=== PATIENT | male | born 1955 | race Caucasian/White ===

== ENCOUNTER 2020-06-15 08:09 | Outpatient (REF) | payer BC, MEDICARE, SELFPAY ==
[2020-06-15 09:28] LABS: Alanine Aminotransferase 41 U/L (0-40); Albumin Level 4.2 g/dL (3.5-5.0); Alkaline Phosphatase 45 U/L (39-117); Anion Gap 12 (12-20); Aspartate Amino Transferase 25 U/L (5-37); Bilirubin Total 0.6 mg/dL (0.0-1.0); Blood Urea Nitrogen 15 mg/dL (9-16); Calcium 8.8 mg/dL (8.4-10.2); Carbon Dioxide 29 mmol/L (22-29); Chloride 102 mmol/L (96-108); Estimated Glomerular Filt Rate > 60; Glucose Fasting 144 mg/dL (60-99); Potassium 3.9 mmol/l (3.3-5.1); Sodium 139 mmol/L (135-145); Total Protein 6.7 g/dL (6.5-8.0)
== END 2020-06-15 08:10 | disposition home or self-care (01) ==
LOC: HO.LAB 08:09
PROVIDERS: PCP Internal Medicine; Visit Provider Internal Medicine
DX: R73.02 Impaired glucose tolerance (oral) (principal)
CPT/HCPCS: 36415; 80053

== ENCOUNTER 2020-06-17 08:05 | Outpatient (REF) | payer BC, MEDICARE, SELFPAY ==
--- NOTE | 2020-06-17 14:49 | MHC.AU.AEV ---
Adult Audiological Evaluation AUD- Audiology Adult New Evaluation Start: 06/17/20 14:34 Freq: Status: Active Protocol: Activity Type Activity Date Activity User E-Sign Co-Sign Detail Recorded Client Recorded Date Recorded By Document 06/17/20 14:35 MAXX [id number] 06/17/20 14:48 MAXX 06/17/20 14:35 Adult Audiological Evaluation [Date of Visit] -Date of Visit 06/17/20 [Reason For Appointment] -Reason for Appointment Audiologic re- evaluation due to question of change in hearing ability . Peter reports he is experiencing increased difficulty understanding his 's speech. -Does patient feel they have a hearing Yes loss? -If Yes, Which Ear? Both Ears [Previous Testing] -Has hearing been tested previously? Yes -Previous Hearing Test Results 04/05/2019 Normal hearing thresholds at 250 Hz dropping to a bilateral severe for profound high frequency sensorineural hearing loss with the right ear being poorer at 8000 Hz. Speech understanding was 88% for the right ear and 92% for the left ear at a level of 75 dB HL. [Reported History] -Bothersome Tinnitus/Ringing/Noises in Both Ears Ears -History of occupational noise Yes exposure? 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 Technician- Left Ear Oticon -Model- Left OPN 3 mini RITE -Serial Number- Left [id number] -Battery Size- Left 312 -Warranty- Left Repair and L&D 05/02/2020 -Dispensed By [facility] -Date of Fittin04/21/2018 [Otoscopy] -Otoscopy- Right Ear Unremarkable -Otoscopy- Left Ear Unremarkable [Tympanometry] -Tympanometry- Right Ear Normal Middle Ear System ( Type A) -Tympanometry- Left Ear Normal Middle Ear System ( Type A) [Hearing Test Methods] -Transducer(s) Used Insert Earphones,Bone Conduction -Method Conventional Audiometry -Stimuli Used Pure Tones [Hearing- Right Ear] -Description of Hearing- Right Ear Normal hearing threshold at 250 Hz dropping to a severe sensorineural hearing loss at 4000 Hz, rising to a moderate loss at 8000 Hz. [Hearing- Left Ear] -Description of Hearing- Left Ear Normal hearing at 250 Hz dropping to a profound sensorineural hearing loss at 3000 Hz rising to a severe loss at 8000 Hz . [Speech Recognition Threshold (SRT)] -Method Used Monitored Live Voice -Stimuli Used Spondee Words -Speech Recognition Threshold (SRT)- 30 dB HL Right Ear -Speech Recognition Threshold (SRT)- 30 dB HL Left Ear [Word Discrimination] -Method: Recorded Lists -Word Lists Used: NU-6 -Word Discrimination- Right Ear 96% at 70 dB HL -Word Discrimination- Left Ear 96% at 70 dB HL [Compared to Most Recent Evaluation:] -Compared to the most recent Hearing is evaluation: stable. [Recommendations] -Recommendations Audiological re -evaluation in one year. -Recommendations (Other) Re-programmed the hearing aids to try to improve discrimination ability. If further adjustments are needed Peter is advised to schedule another appointment. [Diagnosis] -Primary Diagnosis: H90.3 Bilateral Sensorineural Hearing Loss -Secondary Diagnosis: N/A [Services Performed] -Services Performed Comprehensive Audiological Evaluation (CPT 10839), Tympanometry ( CPT 78263) Signature [Signature] -Provider Pat Major, [facility]
== END 2020-06-17 08:06 | disposition home or self-care (01) ==
LOC: HO.SH 08:05
PROVIDERS: PCP Internal Medicine; Visit Provider Internal Medicine
DX: H90.3 Sensorineural hearing loss, bilateral (principal)
CPT/HCPCS: 92557; 92567

== ENCOUNTER 2020-08-02 07:49 | Outpatient (REF) | payer BC, MEDICARE, SELFPAY ==
[2020-08-02 12:06] LABS: Alanine Aminotransferase 33 U/L (0-40); Albumin Level 4.1 g/dL (3.5-5.0); Alkaline Phosphatase 45 U/L (39-117); Anion Gap 16 (12-20); Aspartate Amino Transferase 23 U/L (5-37); Bilirubin Total 0.7 mg/dL (0.0-1.0); Blood Urea Nitrogen 13 mg/dL (9-16); Calcium 8.5 mg/dL (8.4-10.2); Carbon Dioxide 27 mmol/L (22-29); Chloride 102 mmol/L (96-108); Cholesterol 156 mg/dL; Estimated Glomerular Filt Rate > 60; Glucose Fasting 149 mg/dL (60-99); HDL Cholesterol 33 mg/dL; LDL Cholesterol Calculated 88 mg/dl; Potassium 3.8 mmol/l (3.3-5.1); Sodium 141 mmol/L (135-145); Total Protein 6.5 g/dL (6.5-8.0); Triglycerides 176 mg/dL
== END 2020-08-02 07:50 | disposition home or self-care (01) ==
LOC: HO.HMGCLDS 07:49
PROVIDERS: Internal Medicine; Visit Provider Internal Medicine
DX: R73.9 Hyperglycemia, unspecified (principal); E78.2 Mixed hyperlipidemia; Z20.828 Contact with and (suspected) exposure to other viral communicable diseases
CPT/HCPCS: 80053; 80061; C9803; U0003

== ENCOUNTER 2020-10-11 09:11 | Outpatient (REF) | payer SELFPAY | END 2020-10-11 09:12 | disposition home or self-care (01) | LOC: HO.HAP 09:11 | PROVIDERS: Visit Provider Internal Medicine | DX: Z46.1 Encounter for fitting and adjustment of hearing aid (principal) | CPT/HCPCS: V5267 ==

== ENCOUNTER 2021-10-28 09:10 | Outpatient (REF) | payer MEDICARE, SELFPAY ==
--- NOTE | ~2021-10-28 | US_ITS ---
EXAMINATION: US RETROPERITONEAL LIMITED (AORTA) CLINICAL INFORMATION: Personal history of nicotine dependence. COMPARISON: None TECHNIQUE: Kumar-scale, color Doppler and spectral Doppler evaluation of the abdominal aorta. FINDINGS: There is evidence of atherosclerotic disease with vessel wall calcification. The aorta is otherwise normal. The measurements of the aorta in maximum AP and transverse dimensions respectively are as follows: Proximal: 2.3 x 2.3 cm. Mid: 2.7 x 2.2 cm. Distal: 2.1 x 2.0 cm. PSV: 97.8 cm/s. The measurements of the common iliac arteries in maximum AP and TRV dimensions are as follows: Right Common Iliac Artery: 1.3 x 1.6 cm. Left Common Iliac Artery: 1.5 x 1.5 cm. US/US abdominal aortic aneurysm IMPRESSION: Normal caliber abdominal aorta. No aneurysm seen..
== END 2021-10-28 09:11 | disposition home or self-care (01) ==
LOC: HO.US 09:10
PROVIDERS: PCP Internal Medicine; Visit Provider Internal Medicine
DX: Z13.6 Encounter for screening for cardiovascular disorders (principal); Z87.891 Personal history of nicotine dependence
CPT/HCPCS: 76706

== ENCOUNTER 2022-01-12 07:40 | Outpatient (REF) | payer MEDICARE, SELFPAY ==
[2022-01-12 11:53] LABS: Alanine Aminotransferase 16 U/L (0-40); Albumin Level 4.1 g/dL (3.5-5.0); Alkaline Phosphatase 43 U/L (39-117); Anion Gap 12 (12-20); Aspartate Amino Transferase 17 U/L (5-37); Bilirubin Total 0.9 mg/dL (0.0-1.0); Blood Urea Nitrogen 17 mg/dL (9-16); Calcium 9.3 mg/dL (8.4-10.2); Carbon Dioxide 29 mmol/L (22-29); Chloride 103 mmol/L (96-108); Cholesterol 203 mg/dL; Estimated Glomerular Filt Rate > 60; Glucose Fasting 100 mg/dL (60-99); HDL Cholesterol 39 mg/dL; LDL Cholesterol Calculated 117 mg/dl; Potassium 3.9 mmol/L (3.3-5.1); Sodium 140 mmol/L (135-145); Total Protein 6.8 g/dL (6.5-8.0); Triglycerides 236 mg/dL
[2022-01-12 12:02] LABS: Creatinine Urine 69.74 mg/dL; Microalbum/Creatinine Ratio Ur 7.1 ug/mg cr
== END 2022-01-12 07:41 | disposition home or self-care (01) ==
LOC: HO.HMGCLDS 07:40
PROVIDERS: Visit Provider Internal Medicine
DX: E11.69 Type 2 diabetes mellitus with other specified complication (principal); E78.5 Hyperlipidemia, unspecified
CPT/HCPCS: 36415; 80053; 80061; 82043

== ENCOUNTER 2022-05-13 07:55 | Outpatient (REF) | payer MEDICARE, SELFPAY ==
[2022-05-13 11:25] LABS: Estimated Average Glucose 108 mg/dL; Hemoglobin A1c % 5.4 %
[2022-05-13 11:35] LABS: Alanine Aminotransferase 16 U/L (0-40); Albumin Level 4.2 g/dL (3.5-5.0); Alkaline Phosphatase 47 U/L (39-117); Anion Gap 14 (12-20); Aspartate Amino Transferase 16 U/L (5-37); Bilirubin Total 0.7 mg/dL (0.0-1.0); Blood Urea Nitrogen 19 mg/dL (9-16); Carbon Dioxide 28 mmol/L (22-29); Chloride 102 mmol/L (96-108); Cholesterol 205 mg/dL; Estimated Glomerular Filt Rate > 60; Glucose Fasting 108 mg/dL (60-99); HDL Cholesterol 40 mg/dL; LDL Cholesterol Calculated 124 mg/dl; Potassium 4.1 mmol/L (3.3-5.1); Sodium 140 mmol/L (135-145); Total Protein 6.9 g/dL (6.5-8.0); Triglycerides 209 mg/dL
[2022-05-13 12:13] LABS: Creatinine Urine 34.97 mg/dL; Microalbumin Urine < 5.0 mg/L
== END 2022-05-13 07:56 | disposition home or self-care (01) ==
LOC: HO.HMGCLDS 07:55
PROVIDERS: PCP Internal Medicine; Visit Provider Internal Medicine
DX: E11.69 Type 2 diabetes mellitus with other specified complication (principal); E11.40 Type 2 diabetes mellitus with diabetic neuropathy, unspecified; E66.9 Obesity, unspecified; E78.5 Hyperlipidemia, unspecified
CPT/HCPCS: 36415; 80053; 80061; 82043; 83036

== ENCOUNTER → 2022-06-25 14:13 | Outpatient (BNVA) | payer MEDICARE, SELFPAY | PROVIDERS: PCP Internal Medicine; Visit Provider Internal Medicine | DX: E66.09 Other obesity due to excess calories (principal); G47.33 Obstructive sleep apnea (adult) (pediatric); Z99.89 Dependence on other enabling machines and devices | CPT/HCPCS: 99202 ==

== ENCOUNTER 2022-08-28 15:28 | Outpatient (REF) | payer MEDICARE, SELFPAY ==
--- NOTE | ~2022-08-28 | XR_ITS ---
EXAMINATION: XR ANKLE, LEFT CLINICAL INFORMATION: Pain in the ankle. COMPARISON: None TECHNIQUE: 3 views of the left ankle. FINDINGS: There is a nondisplaced fracture through the posterior malleolus. Fracture line now has somewhat indistinct raising question if this is an acute or chronic fracture. There is a tiny osseous density at the tip of the medial malleolus which may be acute or chronic as well. Lateral malleolus intact. Ankle mortise is congruent. Large plantar calcaneal spur. Spur at the insertion of Achilles tendon at the posterior calcaneus. XR/XR ankle LT min 3V IMPRESSION: 1. Nondisplaced fracture through the posterior malleolus. This may be acute or chronic. 2. Tiny osseous density at the tip of the medial malleolus which may be acute or chronic. 3. Large plantar calcaneal spur. Spur at the insertion of Achilles tendon.
== END 2022-08-28 15:29 | disposition home or self-care (01) ==
LOC: HO.HMGCX 15:28
PROVIDERS: PCP Internal Medicine; Visit Provider Physician Assistant
DX: M25.572 Pain in left ankle and joints of left foot (principal)
CPT/HCPCS: 73610

== ENCOUNTER 2022-10-26 07:46 | Outpatient (REF) | payer MEDICARE, SELFPAY ==
[2022-10-26 12:14] LABS: Alanine Aminotransferase 20 U/L (0-40); Albumin Level 4.2 g/dL (3.5-5.0); Alkaline Phosphatase 52 U/L (39-117); Anion Gap 12 (12-20); Aspartate Amino Transferase 16 U/L (5-37); Bilirubin Total 0.9 mg/dL (0.0-1.0); Blood Urea Nitrogen 14 mg/dL (9-16); Calcium 9.1 mg/dL (8.4-10.2); Carbon Dioxide 31 mmol/L (22-29); Chloride 102 mmol/L (96-108); Cholesterol 225 mg/dL; Estimated Glomerular Filt Rate > 60; Glucose Fasting 101 mg/dL (60-99); HDL Cholesterol 43 mg/dL; LDL Cholesterol Calculated 131 mg/dl; Potassium 3.9 mmol/L (3.3-5.1); Sodium 141 mmol/L (135-145); Total Protein 6.7 g/dL (6.5-8.0); Triglycerides 255 mg/dL
[2022-10-26 12:52] LABS: Creatinine Urine 47.52 mg/dL; Microalbumin Urine < 5.0 mg/L
== END 2022-10-26 07:47 | disposition home or self-care (01) ==
LOC: HO.HMGCLDS 07:46
PROVIDERS: PCP Internal Medicine; Visit Provider Internal Medicine
DX: E11.69 Type 2 diabetes mellitus with other specified complication (principal); E66.9 Obesity, unspecified; E11.9 Type 2 diabetes mellitus without complications; E78.5 Hyperlipidemia, unspecified
CPT/HCPCS: 36415; 80053; 80061; 82043

== ENCOUNTER → 2022-12-22 11:17 | Outpatient (BNVA) | payer MEDICARE, SELFPAY | PROVIDERS: PCP Internal Medicine; Visit Provider Internal Medicine | DX: G47.33 Obstructive sleep apnea (adult) (pediatric) (principal); E66.09 Other obesity due to excess calories; Z99.89 Dependence on other enabling machines and devices; Z68.38 Body mass index [BMI] 38.0-38.9, adult | CPT/HCPCS: 99212 ==

== ENCOUNTER → 2022-12-25 10:34 | Outpatient (BNVA) | payer MEDICARE, SELFPAY | PROVIDERS: PCP Internal Medicine; Visit Provider Nurse Practitioner | DX: Z12.11 Encounter for screening for malignant neoplasm of colon (principal); D12.6 Benign neoplasm of colon, unspecified; E11.9 Type 2 diabetes mellitus without complications; E66.09 Other obesity due to excess calories; G47.33 Obstructive sleep apnea (adult) (pediatric); Z68.38 Body mass index [BMI] 38.0-38.9, adult; Z99.89 Dependence on other enabling machines and devices | CPT/HCPCS: 99202 ==

== ENCOUNTER 2023-02-17 07:05 | Outpatient (REF) | payer MEDICARE, SELFPAY ==
[2023-02-17 11:39] LABS: Alanine Aminotransferase 17 U/L (0-40); Albumin Level 4.1 g/dL (3.5-5.0); Alkaline Phosphatase 47 U/L (39-117); Anion Gap 13 (12-20); Aspartate Amino Transferase 16 U/L (5-37); Bilirubin Total 0.9 mg/dL (0.0-1.0); Blood Urea Nitrogen 16 mg/dL (9-16); Calcium 9.3 mg/dL (8.4-10.2); Carbon Dioxide 28 mmol/L (22-29); Chloride 104 mmol/L (96-108); Cholesterol 206 mg/dL; Estimated Glomerular Filt Rate > 60; Glucose Fasting 99 mg/dL (60-99); HDL Cholesterol 38 mg/dL; LDL Cholesterol Calculated 113 mg/dl; Sodium 141 mmol/L (135-145); Total Protein 6.8 g/dL (6.5-8.0); Triglycerides 277 mg/dL
== END 2023-02-17 07:06 | disposition home or self-care (01) ==
LOC: HO.HMGCLDS 07:05
PROVIDERS: PCP Internal Medicine; Visit Provider Internal Medicine
DX: E78.5 Hyperlipidemia, unspecified (principal); G47.33 Obstructive sleep apnea (adult) (pediatric); Z99.89 Dependence on other enabling machines and devices
CPT/HCPCS: 36415; 80053; 80061

== ENCOUNTER 2023-04-21 08:01 | Outpatient (AMB) | payer MEDICARE, SELFPAY ==
[2023-04-21 08:02] VITALS: BP 130/76; PULSE 78; O2SAT 97; BMI 38.7
--- NOTE | 2023-04-21 08:02 | MHC.PC.OV ---
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 Accompanied by: Self / Same As Patient Allergies atorvastatin [From LIPITOR] Adverse Reaction (Severe, Verified 04/21/23 08:28) transaminitis Medication List - Last Reconciled 04/21/23 by Lara Lobo MD azelastine 1 spray intranasal BEDTIME 30 days blood sugar diagnostic (SourceTourTouch Ultra Test strips) Use 1 test strips once a day blood-glucose meter (SourceTourTouch UltraMini kit) As directed blood-glucose meter (SourceTourTouch Ultra2 Meter) As directed celecoxib 200 mg PO DAILY coenzyme Q10 (CoQ-10) 100 mg PO DAILY hydrochlorothiazide 25 mg PO QAM lancets (SourceTourTouch UltraSoft Lancets) Use 1 lancet once a day lancets (LightSpeed Retailuch Delica Plus Lancet) Use 1 lancet once a day lovastatin 80 mg (2 x 40 mg) PO DAILY 90 days metformin 500 mg PO DAILY 90 days qg-vgd-tmmkn-Q5-fbdycoi-wkyxsn 955-86-530-300 mcg (Centrum Silver Men) 1 tab PO DAILY peg 3350-electrolytes 236-22.74-6.74 -5.86 gram (Golytely) 240 mL PO Q10M 1 day hluylgq-kpis-zbwyr-oreg-capryl 100 mg-150 mg- 50 mg-150 mg caps PO Tobacco use date assessed: 11/02/22 Fall risk assessment: No Falls in past year Last assessed Fall Risk: 04/21/23 Dental Screening Dental Screen Date: 04/21/23 Did you have a dental visit in the last 12 months?: Yes Did you have a dental problem in the last 6 months where you did not have access to dental care?: No Was dental information given to patient?: Patient has dentist HPI HPI Comments History of Present Illness Details This is a 67-year-old male with diabetes mellitus type 2, hypertension, mixed hyperlipidemia and mild major depression that comes today accompanied by for follow-up on recent labs. Blood pressure stable. A1c within goal. LDL not on goal and I will add fenofibrate to decrease triglycerides. Has mild major depression but declines any treatment. No counseling or medication. No chest pain or shortness of breath. [facility] Medical History (Updated 04/21/23 @ 08:38 by Lara Lobo MD) Diabetes mellitus type 2 in obese Essential hypertension Former smoker Mixed hyperlipidemia Obese Obesity due to excess calories with serious comorbidity Shoulder pain Surgical History H/O colonoscopy History of skin cancer S/P ureteral reimplantation Family History Father Lung cancer Mother Diabetes Hypertension Stroke Social History Housing: House Alcohol intake: former Patient Tobacco Use Status: Former Tobacco user Tobacco use type: Cigarette e-Cigarette/Vaping Use: Never Used Second Hand Smoke Exposure: No Advance Directives Date on File: 06/17/20 service: No Current occupational status: unemployed Cognitive needs: No Hearing needs: Yes Vision needs: No Questionnaire PHQ-9 Over the last 2 weeks, how often have you been bothered by any of the following problems? 1. Little interest or pleasure in doing things: several days 2. Feeling down, depressed, or hopeless: several days 3. Trouble falling or staying asleep, or sleeping too much: nearly every day 4. Feeling tired or having little energy: several days 5. Poor appetite or overeating: nearly every day 6. Feeling bad about yourself - or that you are a failure or have let yourself or your family down: not at all 7. Trouble concentrating on things, such as reading the newspaper or watching television: not at all 8. Moving or speaking so slowly that other people could have noticed. Or the opposite - being so fidgety or restless that you have been moving around a lot more than usual: not at all 9. Thoughts that you would be better off or of hurting yourself in some way: not at all Total score: 9 Depression Screening Interpretation: Positive Depression Screening Follow-up: Existing condition and Declines treatment 53284 - PHQ-9 Billing: Yes Source: Developed by Drs. Chas Calderon, Maggie Miranda, Manohar Hollingsworth and colleagues, with an educational douglas from Loc[employer]. Thrive Questionnaire Date Thrive assessed: 11/02/22 AUDIT C Alcohol Use Questionnaire (AUDIT-C) 1. How often do you have a drink containing alcohol?: Never Total Score: 0 NYDIA-7 AMB Questionnaire NYDIA-7 Date NYDIA - 7 assessed: 11/02/22 Source: Developed by Drs. Chas Calderon, Maggie Miranda, Manohar Hollingsworth and colleagues, with an educational douglas from Loc[employer]. Review of Systems Const All systems reviewed & are unremarkable except as noted in HPI and below Eyes Reports no additional complaints, Denies change in vision and Denies other visual disturbances Card Denies chest pain at rest, Denies chest pain with activity, Denies edema, Denies irregular heart rhythm, Denies claudication, Denies dyspnea, Denies dyspnea on exertion, Denies orthopnea, Denies paroxysmal nocturnal dyspnea and Denies slow heart rate Resp Denies cough, Denies dyspnea and Denies dyspnea on exertion GI Denies abdominal pain, Denies change in bowel habits, Denies excessive flatus, Denies nausea and Denies vomiting Denies urinary hesitancy, Denies urinary incontinence and Denies urinary urgency Musc Denies abnormal gait, Denies atrophy, Denies deformity and Denies limited range of motion Skin/Breast Denies bleeding lesions, Denies changing lesions and Denies rash Neuro Denies abnormal gait and Denies lack of coordination Physical exam (Primary Care) Vital Signs: Last Vital Signs Pulse 78 04/21/23 08:02 BP 130/76 04/21/23 08:02 Pulse Ox 97 04/21/23 08:02 Oxygen Delivery Method Room Air 04/21/23 08:02 BMI result Body Mass Index 38.7 Tobacco/Smoking Status: Tobacco use Status Tobacco use date assessed 11/02/22 04/21/23 08:03 Patient Tobacco Use Status Former Tobacco user 04/21/23 08:03 Tobacco use type Cigarette 04/21/23 08:03 e-Cigarette/Vaping Use Never Used 04/21/23 08:03 PHQ-9: PHQ-9 Score PHQ-9: Total score 9 04/21/23 08:03 Depression Screening Interpretation: Positive Depression Screening Follow-up: Existing condition and Declines treatment Thrive Assessment: Date of Thrive Assessment Date Thrive assessed 11/02/22 04/21/23 08:03 Eyes General: appearance normal, both eyes and all related structures Eyelids: Yes eyelids normal Conjunctivae: conjunctivae normal Neck Neck: Yes normal visual inspection and Yes supple Resp Effort & Inspection: normal respiratory effort Auscultation: clear to auscultation bilaterally Cardio Jugular venous distension: no JVD Rate: regular rate Rhythm: regular rhythm Heart sounds: S1 normal heart sound present and S2 normal heart sound present Extrem General: Yes full ROM Psych Appearance: grossly normal Results AMB Hemoglobin A1c AMB Hemoglobin A1c 5.6 % Last Edit by Latanya Zamorano CMA on 04/21/23 08:17 Results Reviewed Results Reviewed: Laboratory Last Values Hgb A1c (Clinic) 5.6 % (4.0-6.0) 04/21/23 08:03 Assessment and Plan Assessment & Plan (1) Diabetes mellitus type 2 in obese: Code(s): E11.69 - Type 2 diabetes mellitus with other specified complication; E66.9 - Obesity, unspecified Plan: Continue metformin. A1c goal is equal or less than 7%. (2) Essential hypertension: Code(s): I10 - Essential (primary) hypertension Plan: Continue hydrochlorothiazide. Blood pressure goal is equal or less than 130/80. (3) Mixed hyperlipidemia: Code(s): E78.2 - Mixed hyperlipidemia Plan: Continue lovastatin. Start fenofibrate. LDL goal should be less than 70. (4) Mild major depression: Code(s): F32.0 - Major depressive disorder, single episode, mild Plan: Declines treatment. Advised that in case he needed counseling or medication he can let me know. Orders: Orders AMB Hemoglobin A1c Today Z13.9 - Encounter for screening, unspecified Medications: New fenofibrate 54 mg PO DAILY 90 days 90 tabs 1RF E78.2 - Mixed hyperlipidemia Coding Level of Care Code Est Pt Level 4 (96540) Diagnoses Diabetes mellitus type 2 in obese E11.69; E66.9 Essential hypertension I10 Mixed hyperlipidemia E78.2 Mild major depression F32.0 Time Spent (min) 21
== END 2023-04-21 08:41 | disposition home or self-care (01) ==
PROVIDERS: Visit Provider Internal Medicine
DX: E11.69 Type 2 diabetes mellitus with other specified complication (principal); I10 Essential (primary) hypertension; E66.9 Obesity, unspecified; Z68.38 Body mass index [BMI] 38.0-38.9, adult; E78.2 Mixed hyperlipidemia; F32.0 Major depressive disorder, single episode, mild
CPT/HCPCS: 83036; 99214

== ENCOUNTER 2023-06-22 09:08 | Outpatient (AMB) | payer MEDICARE, SELFPAY ==
[2023-06-22 09:23] VITALS: BP 120/70; PULSE 71; O2SAT 96; BMI 38.4
--- NOTE | 2023-06-22 09:23 | MHC.OFFVIS ---
Intake Vital Signs 06/22/23 09:23 Height 5 ft 9 in Weight 260 lb BMI 38.4 BP 120/70 Blood Pressure Location Lt brachial Position Sitting Pulse 71 Pulse Source Pulse Oximeter Pulse Oximetry (%) 96 Oxygen Delivery Method Room Air Intake Visit Reasons: Obstructive sleep apnea Intake Note: pt is here for follow up and states he is okay, using mask that he had at home, no new mask was delivered by SMS, would like a new DME provider. 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 Allergies atorvastatin [From LIPITOR] Adverse Reaction (Severe, Verified 06/22/23 09:28) transaminitis Medication List - Last Reconciled 06/22/23 by Mkiayla Lobo MD azelastine 1 spray intranasal BEDTIME 30 days blood sugar diagnostic (OneTouch Ultra Test strips) Use 1 test strips once a day blood-glucose meter (Resource DataTouch UltraMini kit) As directed blood-glucose meter (OneTouch Ultra2 Meter) As directed celecoxib 200 mg PO DAILY coenzyme Q10 (CoQ-10) 100 mg PO DAILY fenofibrate 54 mg PO DAILY 90 days hydrochlorothiazide 25 mg PO QAM lancets (Resource DataTouch UltraSoft Lancets) Use 1 lancet once a day lancets (OneTouch Delica Plus Lancet) Use 1 lancet once a day lovastatin 80 mg (2 x 40 mg) PO DAILY 90 days metformin 500 mg PO DAILY 90 days mz-gwh-pouxv-F6-odctxki-htcweh 078-80-373-300 mcg (Centrum Silver Men) 1 tab PO DAILY peg 3350-electrolytes 236-22.74-6.74 -5.86 gram (Golytely) 240 mL PO Q10M 1 day fvwhhmn-qlaf-mxslo-oreg-capryl 100 mg-150 mg- 50 mg-150 mg caps PO Do you need a note to return to daycare/school/sports/work: No HPI Obstructive sleep apnea HPI Details This 67 years old very pleasant gentleman comes after 6 months for routine follow-up. He is grossly obese but, healthy looking, and physically active. Uses CPAP regularly. Currently the CPAP mask is not causing much problem because he has, used some questions under the straps which go over his cheeks. Sleeps good every night, Denies any daytime sleepiness. [facility] Medical History (Updated 06/22/23 @ 09:47 by Mikayla Lobo MD) Obesity (BMI 30-39.9) Obesity due to excess calories with serious comorbidity Shoulder pain Former smoker Obese Essential hypertension Diabetes mellitus type 2 in obese Mixed hyperlipidemia Surgical History H/O colonoscopy History of skin cancer S/P ureteral reimplantation Family History Father Lung cancer Mother Diabetes Hypertension Stroke Social History Housing: House Alcohol intake: former Patient Tobacco Use Status: Former Tobacco user Tobacco use type: Cigarette e-Cigarette/Vaping Use: Never Used Second Hand Smoke Exposure: No Advance Directives Date on File: 06/17/20 service: No Current occupational status: unemployed Cognitive needs: No Hearing needs: Yes Vision needs: No Review of Systems Const All systems reviewed & are unremarkable except as noted in HPI and below Eyes Reports no additional complaints, Denies change in vision and Denies other visual disturbances ENT Reports no additional complaints Card Denies chest pain at rest, Denies chest pain with activity, Denies edema, Denies irregular heart rhythm, Denies claudication, Denies dyspnea, Denies dyspnea on exertion, Denies orthopnea, Denies paroxysmal nocturnal dyspnea and Denies slow heart rate Resp Denies cough, Denies dyspnea, Denies dyspnea on exertion and Denies wheezing GI Denies abdominal pain, Denies change in bowel habits, Denies excessive flatus, Denies nausea and Denies vomiting Denies urinary hesitancy, Denies urinary incontinence and Denies urinary urgency Musc Denies abnormal gait, Denies atrophy, Denies deformity and Denies limited range of motion Skin/Breast Denies bleeding lesions, Denies changing lesions and Denies rash Neuro Denies abnormal gait and Denies lack of coordination Psych Reports no additional complaints Aller/Immun Denies wheezing Physical Exam Vital Signs: Last Vital Signs Pulse 71 06/22/23 09:23 BP 120/70 06/22/23 09:23 Pulse Ox 96 06/22/23 09:23 Oxygen Delivery Method Room Air 06/22/23 09:23 BMI result Body Mass Index 38.4 Const General: healthy appearing (Except for being overweight) and comfortable Orientation/consciousness: patient oriented x3 HEENT Head: Yes normal to inspection General nose exam: No nasal polyps present and No nasal discharge present Face and sinus: Yes sinuses nontender Mouth: oropharynx normal Throat: Yes posterior oropharynx normal Eyes General: appearance normal, both eyes and all related structures Neck Neck: Yes normal visual inspection, Yes no lymphadenopathy, Yes trachea midline and Yes no JVD Thyroid: Thyroid normal Chest Chest palpation & inspection: normal inspection of the chest, normal palpation of entire chest wall and no tenderness Resp Effort & Inspection: normal respiratory effort Auscultation: clear to auscultation bilaterally, no crackles and no wheezes Cardio Palpation: normal PMI Rate: regular rate Rhythm: regular rhythm Heart sounds: no gallops and no murmurs Peripheral pulses: Peripheral pulses 2+ throughout GI Palpation (GI): Soft to palpation, Tenderness to palpation present (GI), No hepatosplenomegaly present and Palpable mass present Auscultation: normal bowel sounds Back/Spine/Pelvis Thoracic/Lumbar Spine: thoracic and lumbar spine normal to inspection Skin General skin exam: no rashes or lesions noted Neuro General: patient oriented x3 and no focal motor deficits Cranial nerves: Yes CN's II-XII intact bilaterally Extrem General: Yes normal to inspection, Yes no clubbing, cyanosis or edema and Yes no calf tenderness Psych Speech and movement: Normal speech and movement present Results Reviewed Results Reviewed: Compliance report not available but according to the patient he uses regularly at least 6 hours per night and sleeps good Assessment & Plan Assessment & Plan (1) Obesity due to excess calories with serious comorbidity: Comment: Patient is grossly obese, Not able to do much exercise because of his osteoarthritis. Trying to watch his diet as much as he can. Code(s): E66.09 - Other obesity due to excess calories (2) PENG on CPAP: Comment: Known to have obstructive sleep apnea since 2015, after a home sleep study which showed obstructive sleep apnea. Has been compliant and benefiting. He is using a full face mask which seems to be fairly comfortable because he has applied some pads under the straps. He likes to change DME for getting timely supplies. We will help him in this issue. At a good discussion and he is encouraged to continue using the CPAP regularly. Code(s): G47.33 - Obstructive sleep apnea (adult) (pediatric); Z99.89 - Dependence on other enabling machines and devices Coding Level of Care Code Est Pt Level 3 (44329) Diagnoses Obesity due to excess calories with serious comorbidity E66.09 PENG on CPAP G47.33; Z99.89
== END 2023-06-22 09:41 | disposition home or self-care (01) ==
PROVIDERS: PCP Internal Medicine; Visit Provider Internal Medicine
DX: E66.09 Other obesity due to excess calories (principal); G47.33 Obstructive sleep apnea (adult) (pediatric); Z99.89 Dependence on other enabling machines and devices
CPT/HCPCS: 99213

== ENCOUNTER → 2023-06-22 09:08 | Outpatient (BNVA) | payer MEDICARE, SELFPAY | PROVIDERS: Visit Provider Internal Medicine | DX: G47.33 Obstructive sleep apnea (adult) (pediatric) (principal); E66.09 Other obesity due to excess calories; Z99.89 Dependence on other enabling machines and devices; Z68.38 Body mass index [BMI] 38.0-38.9, adult | CPT/HCPCS: 99212 ==

== ENCOUNTER 2023-07-21 10:23 | Day surgery (SDC) | payer MEDICARE, SELFPAY ==
[2023-07-16 18:58] VITALS: BMI 36.6
--- NOTE | 2023-07-20 09:47 | HO.ANESPROP2 ---
Documented by User: Ashleigh Tate NP 07/20/23 09:48 HPI - Anesthesia Eval Consult details Narrative: 67yo M for Colonoscopy PMFSH Active Problems Active Problems: All Active Problems (Updated 07/16/23 @ 18:57 by Angelic Whitlock, RN) Mild major depression (Acute) Pre-op examination (Acute) Gastrointestinal multiple polyposis syndrome (Acute) Screen for colon cancer (Acute) Physical exam (Acute) PENG on CPAP (Acute) Obesity (BMI 30-39.9) (Acute) Obesity due to excess calories with serious comorbidity (Acute) Shoulder pain (Acute) Former smoker (Acute) Obese (Acute) Essential hypertension (Acute) Diabetes mellitus type 2 in obese (Acute) Mixed hyperlipidemia (Acute) Past Medical History Medical History (Updated 07/16/23 @ 18:57 by Angelic Whitlock, RN) Arthritis History of blood transfusion PENG on CPAP Obesity (BMI 30-39.9) Obesity due to excess calories with serious comorbidity Shoulder pain Former smoker Obese Essential hypertension Diabetes mellitus type 2 in obese Mixed hyperlipidemia Family History Family History Father Lung cancer Mother Diabetes Hypertension Stroke Surgical History Surgical History H/O colonoscopy History of skin cancer S/P ureteral reimplantation Social History Housing: House Alcohol intake: former Patient Tobacco Use Status: Former Tobacco user Tobacco use type: Cigarette e-Cigarette/Vaping Use: Never Used Second Hand Smoke Exposure: No Advance Directives Date on File: 06/17/20 service: No Current occupational status: unemployed Cognitive needs: No Hearing needs: Yes Vision needs: No Meds Allergies Allergy/AdvReac Type Severity Reaction Status Date / Time atorvastatin [From LIPITOR] AdvReac Severe transaminit Verified 08/04/23 14:33 is Home Medications Medication Instructions Recorded Confirmed Last Taken Type celecoxib 200 mg capsule 200 mg PO DAILY 06/18/20 07/16/23 Unknown History coenzyme Q10 100 mg capsule 100 mg PO DAILY 06/18/20 07/16/23 Unknown History (CoQ-10) llyqrxhw-ul-rylce 300 mcg-K 60 1 tab PO DAILY 06/18/20 07/16/23 Unknown History mcg-lycop 600 mcg-lutein 300 mcg tablet (Centrum Silver Men) tumeric 100 mg-prakash 150 mg-olive 1 cap PO DAILY 06/25/22 07/16/23 Unknown History 50 mg-oreg 150 mg-caprylate capsule Exam Exam Date and Time: July 20, 2023 0947 Height,Weight and Vital Signs: Height 5 ft 10 in Weight 115.666 kg Pertinent Lab Results Pertinent Lab Results: Laboratory Tests 02/06/20 02/17/23 08:20 07:12 WBC 5.4 Hgb 15.2 Hct 45.4 Plt Count 131 L Sodium 141 Potassium 4.0 Chloride 104 Carbon Dioxide 28 BUN 16 Creatinine 0.81 Assessment and Plan Assessment Anesthesia Assessment: Chart Reviewed Documented by User: Frandy Asif MD 08/05/23 17:56 [facility] Past Medical History Medical History (Updated 07/16/23 @ 18:57 by Angelic Whitlock, RN) Arthritis History of blood transfusion PENG on CPAP Obesity (BMI 30-39.9) Obesity due to excess calories with serious comorbidity Shoulder pain Former smoker Obese Essential hypertension Diabetes mellitus type 2 in obese Mixed hyperlipidemia Family History Family History Father Lung cancer Mother Diabetes Hypertension Stroke Family history of problems with anesthesia: No Surgical History Surgical History H/O colonoscopy History of skin cancer S/P ureteral reimplantation History of Problems with Anesthesia: No Social History Housing: House Alcohol intake: former Patient Tobacco Use Status: Former Tobacco user Tobacco use type: Cigarette e-Cigarette/Vaping Use: Never Used Second Hand Smoke Exposure: No Advance Directives Date on File: 06/17/20 service: No Current occupational status: unemployed Cognitive needs: No Hearing needs: Yes Vision needs: No Meds Allergies Allergy/AdvReac Type Severity Reaction Status Date / Time atorvastatin [From LIPITOR] AdvReac Severe transaminit Verified 08/04/23 14:33 is Home Medications Medication Instructions Recorded Confirmed Last Taken Type celecoxib 200 mg capsule 200 mg PO DAILY 06/18/20 07/16/23 Unknown History coenzyme Q10 100 mg capsule 100 mg PO DAILY 06/18/20 07/16/23 Unknown History (CoQ-10) qeqymhdy-yl-zevpz 300 mcg-K 60 1 tab PO DAILY 06/18/20 07/16/23 Unknown History mcg-lycop 600 mcg-lutein 300 mcg tablet (Centrum Silver Men) tumeric 100 mg-prakash 150 mg-olive 1 cap PO DAILY 06/25/22 07/16/23 Unknown History 50 mg-oreg 150 mg-caprylate capsule Exam Airway Mallampati Class: III Loose/Missing/Broken Teeth: Yes Assessment and Plan Assessment Anesthesia Assessment: Anesthesia Plan Discussed Final Anesthetic Review Family History of Problems with Anesthesia: No History of Problems with Anesthesia: No NPO: Yes ASA Class: III Final Preanesthetic Review: Meds/Allgs Chart Reviewed, Consent Obtained/Reviewed and Anes Risks/Benef Reviewed Patient Risk: Intermediate Procedure Risk: Intermediate Anesthetic Plan Anesthetic Plan: MAC: and Agree w/ Assess. and Plan Disposition: Standard PACU
[2023-07-21] MEDS: Lactated Ringers 1,000 ML 100 ML IVCONT (11:31)
[2023-07-21 11:32] VITALS: BP 153/76; PULSE 62; RESP 18; TEMP 36.9; O2SAT 98
[2023-07-21 11:34] LABS: Glucose, Whole Blood 101 mg/dL (60-115)
--- NOTE | 2023-07-21 11:48 | MHC.SHP ---
Pre-Procedural Eval Section A Date of Service: 07/21/23 Section B Chief Complaint: Benign neoplasm of colon, unspecified Relevant Family History (Specify if Yes): No Relevant Social History: None Present Medications: see Short Stay Collaborative assessment Medical History: Significant History (Arthritis History of blood transfusion PENG on CPAP Obesity (BMI 30-39.9) Obesity due to excess calories with serious comorbidity Shoulder pain Former smoker Obese Essential hypertension Diabetes mellitus type 2 in obese Mixed hyperlipidemia) History of Previous Operations: Relevant previous surgery/procedure and date(s) (H/O colonoscopy History of skin cancer S/P ureteral reimplantation) Allergies: Allergies Allergy/AdvReac Type Severity Reaction Status Date / Time atorvastatin [From LIPITOR] AdvReac Severe transaminit Verified 06/22/23 09:28 is Review of Systems Sugical H&P ROS: Negative: Constitution, Cardiovascular, Respiratory, Neurological, Psychiatric, Hem-Onc, Allergic/Immunologic, Gastrointestinal, Genitourinary, Musculoskeletal, Integumentary, Endocrine and Eyes/Ears/Nose/Throat Exam Surgical H&P Exam: Normal: HEENT, Normal: Heart, Normal: Lungs, Normal: Extremities, Normal: Abdomen, Normal: Skin and Normal: Neurological Plan Diagnosis/Plan: Unchanged I have reviewed the history and physical and performed a pertinent physical examination on my patient. No changes have occurred unless specified. Time Spent With Patient Time: Total time managing care of this patient today ____ minutes.
--- NOTE | 2023-07-21 12:08 | P.OP_ITS ---
Operative Note Operative Note Date of Service: 07/21/23 Narrative: Operative Information Procedure Description: Colonoscopy Indication: hx of colon polyps Anesthesia: MAC COLONOSCOPY Instrument: Olympus variable stiffness Adult scope 190L Colonoscopy Monitoring: Vital signs and clinical assessment, continuous EKG monitoring, Pulse oximetry, Carbon Dioxide monitoring and blood pressure monitoring were done throughout the procedure. Colon withdrawal time was 17 minutes. Procedure: The patient was placed in the left lateral decubitis position and pre-procedure medications were administered. After a digital rectal examination of the ano-rectum, the video colonoscope was inserted into the rectum and advanced through the colon to the cecum/TI. The colonoscope was slowly withdrawn in a retrograde panoramic fashion and the colon mucosa was carefully examined including a retroflexed view of the rectum. Findings and interventions are described below. Procedure Difficulty: moderate Findings: Terminal Ileum-normal Cecum:normal Ascending Colon: normal Transverse Colon -normal Descending Colon: 4-6 mm sessile polyp removed with cold forceps Sigmoid Colon: moderate severe diverticulosis with luminal narrowing, 10 mm sessile polyp removed with cold snare Rectum: Retroflexion with medium sized internal hemorrhoids, grade I, 6-9 mm sessile polyp removed with cold snare Anorectum - normal Colon preparation: Harmony Bowel Preparation Scale Right colon; 2 Transverse colon: 2 Left colon; 1-2 (0 = Unprepared colon segment with mucosa not seen due to solid stool that cannot be cleared. 1 = Portion of mucosa of the colon segment seen, but other areas of the colon segment not well seen due to staining, residual stool and/or opaque liquid. 2 = Minor amount of residual staining, small fragments of stool and/or opaque liquid, but mucosa of colon segment seen well. 3 = Entire mucosa of colon segment seen well with no residual staining, small fragments of stool or opaque liquid) Impression and Post Procedure Diagnosis: polyps internal hemorrhoids diverticular disease Plan: High fiber diet leaflet Avoid straining at stool, epsom salts and sitz bath, anusol supps or cream Repeat Colonoscopy in 5 years due to hx of polyps or earlier if clinically indic ated Above findings were reviewed with the patient and relevant handouts were provided if indicated.
[2023-07-21 12:41] VITALS: BP 115/67; PULSE 73; RESP 16; TEMP 36.7; O2SAT 95
[2023-07-21 13:01] VITALS: BP 129/75; PULSE 62; RESP 16; TEMP 36.7; O2SAT 97
== END 2023-07-21 14:36 | disposition home or self-care (01) ==
PROVIDERS: PCP Internal Medicine; Visit Provider Internal Medicine Gastroenterology
PROC: 0DJD8ZZ Inspection of Lower Intestinal Tract, Via Natural or Artificial Opening Endoscopic (ICD-10-PCS; CPT 45378; principal; 2023-07-21 12:50)
DX: Z12.11 Encounter for screening for malignant neoplasm of colon (principal); Z86.010 Personal history of colon polyps; K63.5 Polyp of colon; K62.1 Rectal polyp; K57.30 Diverticulosis of large intestine without perforation or abscess without bleeding; K64.0 First degree hemorrhoids; G47.33 Obstructive sleep apnea (adult) (pediatric); I10 Essential (primary) hypertension; E78.00 Pure hypercholesterolemia, unspecified; E11.9 Type 2 diabetes mellitus without complications; E66.09 Other obesity due to excess calories; Z68.38 Body mass index [BMI] 38.0-38.9, adult; Z79.84 Long term (current) use of oral hypoglycemic drugs; Z79.899 Other long term (current) drug therapy; Z99.89 Dependence on other enabling machines and devices; Z88.8 Allergy status to other drugs, medicaments and biological substances; Z85.828 Personal history of other malignant neoplasm of skin; Z87.891 Personal history of nicotine dependence; Z96.0 Presence of urogenital implants
CPT/HCPCS: 45385; 45380; 82947; 88305

== ENCOUNTER → 2023-07-21 10:23 | Outpatient (BNV) | payer MEDICARE, SELFPAY | PROVIDERS: PCP Internal Medicine; Visit Provider Internal Medicine Gastroenterology | DX: Z12.11 Encounter for screening for malignant neoplasm of colon (principal); Z86.010 Personal history of colon polyps; D12.4 Benign neoplasm of descending colon; D12.5 Benign neoplasm of sigmoid colon; D12.8 Benign neoplasm of rectum | CPT/HCPCS: 45380; 45385 ==

== ENCOUNTER 2023-08-04 14:19 | Outpatient (AMB) | payer MEDICARE, SELFPAY ==
--- NOTE | 2023-08-04 14:30 | A.OFFVIS_ITS ---
Intake Vital Signs 08/04/23 14:32 Height 5 ft 10 in Weight 257 lb 15.053 oz BMI 37.0 BP 141/75 H Blood Pressure Location Lt brachial Position Sitting Intake Visit Reasons: S/p bri Kramer Intake Note: Patient presents to in office visit today in colonoscopy follow up. CC: Patient underwent colonoscopy screening with Dr. Kramer on 07/21/23. He reports doing well and denies having any GI symptoms today. Skills Auditor Required: No Allergies atorvastatin [From LIPITOR] Adverse Reaction (Severe, Verified 08/04/23 14:33) transaminitis HPI S/p colon Nia HPI Details Assessment & Plan (1) Gastrointestinal multiple polyposis syndrome: Code(s): D12.6 - Benign neoplasm of colon, unspecified Plan: He has had 4 prior scopes, the first produced 12 polyps, then he had a 1 year repeat=6 polyps, then subsequent scopes were clean. These were performed at another facility and I do not have the records available this time. His last was 7 beck years ago, so he is overdue for scope! Of course I reinforced the fact he should not go more than 5 years without colonoscopy and in fact he may need even shorter follow-ups and he says he understands this but the COVID pandemic really got in his way. Denies any current bowel or upper GI problems. There are no prior problems with anesthesia or sedation. He has PENG and denies cardiac problems. No Problems ID. He had the multiple polyposis on his 1st 2 scopes, his father had extensive cancer of unknown origin, his sister is suffering pancreatic cancer. NDE!! When became diabetic lost almost 100 lbs!! This was due to intentional di eting he is quite proud of this! (2) PENG on CPAP: Comment: Known to have obstructive sleep apnea since 2015, after a home sleep study which showed obstructive sleep apnea. Has been compliant and benefiting. Currently he has discomfort from the use of nasal CPAP mainly because of his strap rubbing on the right cheek ,He was given a full face mask ( A Fit -N -20 ) He is having problem with its mask also and is looking for a mask which goes over his nose. [place] : My administrative office clerk, Mary has talked to sleep Medicine Services, they will provide him the new mask. I will send the order for new mask, I recommend that the best option is for him to go in person, for appropriate fitting of the mask. Code(s): G47.33 - Obstructive sleep apnea (adult) (pediatric); Z99.89 - Dependence on other enabling machines and devices (3) Obesity due to excess calories with serious comorbidity: Comment: Patient is grossly obese, Not able to do much exercise because of his osteoarthritis. Trying to watch his diet as much as he can. Code(s): E66.09 - Other obesity due to excess calories (4) Pre-op examination: Code(s): Z01.818 - Encounter for other preprocedural examination Medications: New peg 3350-electroly jenny 236-22.74-6.74 -5.86 gram (Golyt ludivina) until feca l effluent is leonid r; do not exceed a total volume of 2 ,000 mL 240 mL PO Q10M 1 day 4,000 mL 0RF Z12.11 - Encounter for screening for malignant neoplas m of colon COLONOSCOPY 07/21/23 Findings: Terminal Ileum-normal Cecum:normal Ascending Colon: normal Transverse Colon -normal Descending Colon: 4-6 mm sessile polyp removed with cold forceps Sigmoid Colon: moderate severe diverticulosis with luminal narrowing, 10 mm sessile polyp removed with cold snare Rectum: Retroflexion with medium sized internal hemorrhoids, grade I, 6-9 mm sessile polyp removed with cold snare Anorectum - normal Impression and Post Procedure Diagnosis: polyps internal hemorrhoids diverticular disease Plan: High fiber diet leaflet Avoid straining at stool, epsom salts and sitz bath, anusol supps or cream Repeat Colonoscopy in 5 years due to hx of polyps or earlier if clinically indicated BIOPSY Received: 07/21/23 Diagnosis A. Colon, descending, polypectomy: Colonic mucosa with prominent haphazard smooth muscle consistent with leiomyoma; negative for malignancy. B. Colon, sigmoid, polypectomy: Colonic mucosa with mild surface hyperplastic changes and reactive appearing lymphoid aggregates. C. Rectum, polypectomy: Hyperplastic mucosal polyp. TODAY'S VISIT He is agreeable to the procedure being repeated in 5 years. . The procedure was well tolerated. The results were explained and the patient is agreeable to the follow-up interval as stated. The bowel pattern has returned to normal. Education was provided to tell any 1st degree relatives about their findings to be sure that they are screened by age 45. Educated that they will be put on a recall list when it is time for their repeat scope but should they move out of state or away from the hospital they will need to remember along with their primary to repeat the procedure in a timely fashion to avoid any adverse complications. FORMERLY [facility], [facility]–1983 Medical History (Updated 07/16/23 @ 18:57 by Angelic Whitlock RN) Arthritis History of blood transfusion PENG on CPAP Obesity (BMI 30-39.9) Obesity due to excess calories with serious comorbidity Shoulder pain Former smoker Obese Essential hypertension Diabetes mellitus type 2 in obese Mixed hyperlipidemia Surgical History H/O colonoscopy History of skin cancer S/P ureteral reimplantation Family History Father Lung cancer Mother Diabetes Hypertension Stroke Social History Housing: House Alcohol intake: former Patient Tobacco Use Status: Former Tobacco user Tobacco use type: Cigarette e-Cigarette/Vaping Use: Never Used Second Hand Smoke Exposure: No Advance Directives Date on File: 06/17/20 service: No Current occupational status: unemployed Cognitive needs: No Hearing needs: Yes Vision needs: No Review of Systems Const Denies fatigue, Denies fever(s), Denies night sweats, Denies poor appetite and Denies weight loss Eyes Details: glasses Reports requires corrective lenses ENT Reports Normal hearing present, Denies dental pain, Denies dysphagia, Denies hearing loss, Denies mouth pain, Denies odynophagia, Denies throat swelling, Denies tongue swelling and Reports other (Dentition adequate) GI Denies abdominal pain, Denies melena, Denies bloating, Denies hematochezia, Denies constipation, Denies GI cramping, Denies dysphagia, Denies excessive flatus, Denies early satiety, Denies heartburn, Denies diarrhea, Denies nausea, Denies odynophagia, Denies vomiting and Denies hematemesis Skin/Breast Denies pruritus, Denies lesions, Denies rash and Denies jaundice Neuro Reports Normal hearing present and Denies Abnormal speech present Endo Denies fatigue Aller/Immun Denies throat swelling and Denies tongue swelling Physical Exam Vital Signs: Last Vital Signs BP 141/75 H 08/04/23 14:32 BMI result Body Mass Index 37.0 Const General: cooperative, no acute distress, well developed and well groomed Nutritional Appearance: well nourished, obese and overweight Orientation/consciousness: oriented to person, oriented to place and oriented to time Limitations: No language barrier, ambulation with cane, ambulation with walker and wheelchair HEENT Head: Yes normocephalic and Yes atraumatic Eyes General: appearance normal, both eyes and all related structures Pupils: Equal, round and reactive pupils present Neck Neck: Yes normal visual inspection and Yes no lymphadenopathy Thyroid: Thyroid normal Resp Effort & Inspection: normal respiratory effort and able to speak in complete sentences Auscultation: clear to auscultation bilaterally Cardio Rate: regular rate Rhythm: regular rhythm Heart sounds: Normal, physiologic split S2 sound present Peripheral pulses: radial pulses present and posterior tibial pulses present GI Inspection: No distended and No Abdominal panniculus present Palpation (GI): Soft to palpation, nontender, no guarding, not rigid, No hepatosplenomegaly present and Hepatosplenomegaly present Percussion: Yes normal to percussion Auscultation: normal bowel sounds Rectal Exam - Male: Yes deferred Skin General skin exam: no rashes or lesions noted, turgor normal, skin not dry, no jaundice, No spider nevi and no striae Rashes: no rashes Nails: normal Neuro General: oriented to person, oriented to place and oriented to time Cranial nerves: Yes Equal, round and reactive pupils present and Yes Normal hearing present Speech: No Abnormal speech present Extrem General: Yes normal to inspection, No clubbing, No cyanosis and No edema Psych Thought process: Normal thought process present and not confabulating Thought content: Normal thought content present Insight: Good insight present (Psych) Judgement: Good judgement present (Psych) Results Reviewed Results Reviewed: COLONOSCOPY 07/21/23 Findings: Terminal Ileum-normal Cecum:normal Ascending Colon: normal Transverse Colon -normal Descending Colon: 4-6 mm sessile polyp removed with cold forceps Sigmoid Colon: moderate severe diverticulosis with luminal narrowing, 10 mm sessile polyp removed with cold snare Rectum: Retroflexion with medium sized internal hemorrhoids, grade I, 6-9 mm sessile polyp removed with cold snare Anorectum - normal Impression and Post Procedure Diagnosis: polyps internal hemorrhoids diverticular disease Plan: High fiber diet leaflet Avoid straining at stool, epsom salts and sitz bath, anusol supps or cream Repeat Colonoscopy in 5 years due to hx of polyps or earlier if clinically indicated BIOPSY Received: 07/21/23 Diagnosis A. Colon, descending, polypectomy: Colonic mucosa with prominent haphazard smooth muscle consistent with leiomyoma; negative for malignancy. B. Colon, sigmoid, polypectomy: Colonic mucosa with mild surface hyperplastic changes and reactive appearing lymphoid aggregates. C. Rectum, polypectomy: Hyperplastic mucosal polyp. Assessment & Plan Assessment & Plan (1) Gastrointestinal multiple polyposis syndrome: Code(s): D12.6 - Benign neoplasm of colon, unspecified Plan He is agreeable to the procedure being repeated in 5 years. . The procedure was well tolerated. The results were explained and the patient is agreeable to the follow-up interval as stated. The bowel pattern has returned to normal. Education was provided to tell any 1st degree relatives about their findings to be sure that they are screened by age 45. Educated that they will be put on a recall list when it is time for their repeat scope but should they move out of state or away from the hospital they will need to remember along with their primary to repeat the procedure in a timely fashion to avoid any adverse complications. Coding Level of Care Code Est Pt Level 3 (26728) Diagnoses Gastrointestinal multiple polyposis syndrome D12.6
[2023-08-04 14:32] VITALS: BP 141/75; BMI 37.0
== END 2023-08-04 16:04 | disposition home or self-care (01) ==
PROVIDERS: PCP Internal Medicine; Referring Provider Internal Medicine; Visit Provider Nurse Practitioner
DX: D12.6 Benign neoplasm of colon, unspecified (principal)
CPT/HCPCS: 99213

== ENCOUNTER → 2023-08-04 14:19 | Outpatient (BNVA) | payer MEDICARE, SELFPAY | PROVIDERS: PCP Internal Medicine; Visit Provider Nurse Practitioner | DX: D12.6 Benign neoplasm of colon, unspecified (principal) | CPT/HCPCS: 99212 ==

== ENCOUNTER 2023-10-14 07:18 | Outpatient (REF) | payer MEDICARE, SELFPAY ==
[2023-10-14 11:57] LABS: Alanine Aminotransferase 15 U/L (0-40); Alkaline Phosphatase 37 U/L (39-117); Anion Gap 10 (12-20); Aspartate Amino Transferase 17 U/L (5-37); Bilirubin Total 0.5 mg/dL (0.0-1.0); Blood Urea Nitrogen 16 mg/dL (9-16); Carbon Dioxide 28 mmol/L (22-29); Chloride 105 mmol/L (96-108); Cholesterol 187 mg/dL (<200); Estimated Glomerular Filt Rate > 60; Glucose Fasting 98 mg/dL (60-99); HDL Cholesterol 42 mg/dL (>40); LDL Cholesterol Calculated 111 mg/dL (<100); Sodium 139 mmol/L (135-145); Total Protein 6.7 g/dL (6.5-8.0); Triglycerides 174 mg/dL (<150)
[2023-10-14 12:16] LABS: Creatinine Urine 76.06 mg/dL; Microalbumin Urine < 5.0 mg/L
== END 2023-10-14 07:19 | disposition home or self-care (01) ==
LOC: HO.HMGCLDS 07:18
PROVIDERS: PCP Internal Medicine; Visit Provider Internal Medicine
DX: Z00.00 Encounter for general adult medical examination without abnormal findings (principal); E11.9 Type 2 diabetes mellitus without complications; E78.5 Hyperlipidemia, unspecified
CPT/HCPCS: 36415; 80053; 80061; 82043; 82570

== ENCOUNTER 2023-11-11 08:55 | Outpatient (AMB) | payer MEDICARE, SELFPAY ==
[2023-11-11 09:03] VITALS: BP 136/70; BMI 38.2
--- NOTE | 2023-11-11 09:03 | A.OFFPC_ITS ---
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 Accompanied by: Self / Same As Patient Allergies atorvastatin [From LIPITOR] Adverse Reaction (Severe, Verified 11/11/23 09:28) transaminitis Medication List - Last Reconciled 11/11/23 by Lara Lobo MD azelastine 1 spray intranasal BEDTIME 30 days blood sugar diagnostic (OneTouch Ultra Test strips) Use 1 test strips once a day blood-glucose meter (OneTouch UltraMini kit) As directed blood-glucose meter (OneTouch Ultra2 Meter) As directed celecoxib 200 mg PO BID coenzyme Q10 (CoQ-10) 100 mg PO DAILY fenofibrate 54 mg PO DAILY 90 days hydrochlorothiazide 25 mg PO QAM lancets (CreativeLiveTouch Delica Plus Lancet) Use 1 lancet once a day lancets (CreativeLiveTouch UltraSoft Lancets) Use 1 lancet once a day lovastatin 80 mg (2 x 40 mg) PO DAILY 90 days metformin 500 mg PO DAILY 90 days az-lhf-kbxgz-M3-zwzmvwx-ezhkwd [id number] mcg (Centrum Silver Men) 1 tab PO DAILY jabxbyql-zrpx-kkvho-oreg-capry 100 mg-150 mg- 50 mg-150 mg 1 cap PO DAILY Tobacco use date assessed: 11/11/23 Fall risk assessment: 1 Fall in past year Last assessed Fall Risk: 11/11/23 Dental Screening Dental Screen Date: 11/11/23 Did you have a dental visit in the last 12 months?: No Did you have a dental problem in the last 6 months where you did not have access to dental care?: No Was dental information given to patient?: Patient has dentist HPI HPI Comments History of Present Illness Details This is a 68-year-old male with diabetes mellitus type 2 that comes for his physical exam. A1c within goal. LDL not on goal and I will increase fenofibrate. Last diabetic eye exam was February 2023. Diabetic foot exam was June 2023. Colonoscopy was done July 2023 and next colonoscopy should be in 3-5 years. No chest pain or shortness of breath. He is obese with a BMI of 38.2 and was advised to do diet and exercise to reach BMI goal less than 30. He declines pneumonia vaccine today. Use bilateral hearing aids for hearing loss. [facility] Medical History (Updated 11/11/23 @ 09:48 by Lara Lobo MD) Mild major depression Arthritis History of blood transfusion PENG on CPAP Obesity (BMI 30-39.9) Obesity due to excess calories with serious comorbidity Shoulder pain Former smoker Obese Essential hypertension Diabetes mellitus type 2 in obese Mixed hyperlipidemia Surgical History H/O colonoscopy History of skin cancer S/P ureteral reimplantation Family History Father Lung cancer Mother Diabetes Hypertension Stroke Social History Housing: House Alcohol intake: former Patient Tobacco Use Status: Former Tobacco user Tobacco use type: Cigarette e-Cigarette/Vaping Use: Never Used Second Hand Smoke Exposure: No Advance Directives Date on File: 06/17/20 service: No Current occupational status: unemployed Cognitive needs: No Hearing needs: Yes Vision needs: No Questionnaire PHQ-9 Over the last 2 weeks, how often have you been bothered by any of the following problems? 1. Little interest or pleasure in doing things: not at all 2. Feeling down, depressed, or hopeless: not at all 3. Trouble falling or staying asleep, or sleeping too much: not at all 4. Feeling tired or having little energy: not at all 5. Poor appetite or overeating: not at all 6. Feeling bad about yourself - or that you are a failure or have let yourself or your family down: not at all 7. Trouble concentrating on things, such as reading the newspaper or watching television: not at all 8. Moving or speaking so slowly that other people could have noticed. Or the opposite - being so fidgety or restless that you have been moving around a lot m ore than usual: not at all 9. Thoughts that you would be better off or of hurting yourself in some way: not at all Total score: 0 Depression Screening Interpretation: Negative Depression Screening Done: Yes 49999 - PHQ-9 Billing: Yes Source: Developed by Drs. Chas Calderon, Maggie Miranda, Manohar Hollingsworth and colleagues, with an educational douglas from [employer]. Thrive Questionnaire Date Thrive assessed: 11/11/23 I am a: Patient What is your living situation today?: I have a steady place to live Within the past 12 months, did the food you bought not last and you didn't have the money to get more?: Never true Within the past 12 months, did you worry whether your food would run out before you got money to buy more?: Never true Do you have trouble paying for medicines?: No Do you have trouble getting transportation to medical appointments?: No Do you have trouble paying your heating and electricity bill?: No Do you have trouble taking care of your child, family member or friend?: No Do you have trouble with day-to-day activities such as bathing, preparing meals, shopping, managing finances, etc.?: No Are you currently unemployed and looking for a job?: No Are you interested in more education?: No Please select the resources that you would like help with: None Currently or been in a relationship where the following occur: no concerns reported THRIVE Score: 0 AUDIT C Alcohol Use Questionnaire (AUDIT-C) 1. How often do you have a drink containing alcohol?: Never Total Score: 0 NYDIA-7 AMB Questionnaire NYDIA-7 Date NYDIA - 7 assessed: 11/11/23 Feeling nervous, anxious, or on edge: 0 = Not at all Not being able to stop or control worryin = Not at all Worrying too much about different things: 0 = Not at all Trouble relaxin = Not at all Being so restless that it is hard to sit still: 0 = Not at all Becoming easily annoyed or irritable: 0 = Not at all Feeling afraid as if something awful might happen: 0 = Not at all Total NYDIA-7 score (0-4 normal; 5-9 mild; 10-14 moderate; 15-21 severe): 0 Source: Developed by Drs. Chas Calderon, Manohar George and colleagues, with an educational douglas from [employer]. NYDIA-7 Assessment Billing NYDIA-7 Assessment Tool: NYDIA-7 Assessment 43936 Review of Systems Const All systems reviewed & are unremarkable except as noted in HPI and below Eyes Reports no additional complaints, Denies change in vision and Denies other visual disturbances Card Denies chest pain at rest, Denies chest pain with activity, Denies edema, Denies irregular heart rhythm, Denies claudication, Denies dyspnea, Denies dyspnea on exertion, Denies orthopnea, Denies paroxysmal nocturnal dyspnea and Denies slow heart rate Resp Denies cough, Denies dyspnea and Denies dyspnea on exertion GI Denies abdominal pain, Denies change in bowel habits, Denies excessive flatus, Denies nausea and Denies vomiting Denies urinary hesitancy, Denies urinary incontinence and Denies urinary urgency Musc Denies abnormal gait, Denies atrophy, Denies deformity and Denies limited range of motion Skin/Breast Denies bleeding lesions, Denies changing lesions and Denies rash Neuro Denies abnormal gait, Denies behavioral changes, Denies confusion and Denies lack of coordination Psych Denies behavioral changes and Denies confusion Physical exam (Primary Care) Vital Signs: Last Vital Signs BP 136/70 11/11/23 09:03 BMI result Body Mass Index 38.2 Tobacco/Smoking Status: Tobacco use Status Tobacco use date assessed 11/11/23 11/11/23 09:08 Patient Tobacco Use Status Former Tobacco user 11/11/23 09:08 Tobacco use type Cigarette 11/11/23 09:08 e-Cigarette/Vaping Use Never Used 11/11/23 09:08 PHQ-9: PHQ-9 Score PHQ-9: Total score 0 11/11/23 09:11 Depression Screening Interpretation: Negative Thrive Assessment: Date of Thrive Assessment Date Thrive assessed 11/11/23 11/11/23 09:11 Currently or been in a relationship where the following occur: no concerns reported Const General: No confusion Orientation/consciousness: patient oriented x3 and No confusion HENMT Head: Yes normal to inspection, Yes normocephalic and Yes atraumatic Ears: external ears normal Eyes General: appearance normal, both eyes and all related structures Eyelids: Yes eyelids normal Conjunctivae: conjunctivae normal Neck Neck: Yes normal visual inspection and Yes supple Resp Effort & Inspection: normal respiratory effort Auscultation: clear to auscultation bilaterally Cardio Jugular venous distension: no JVD Rate: regular rate Rhythm: regular rhythm Heart sounds: S1 normal heart sound present and S2 normal heart sound present GI Inspection: Yes normal to inspection Palpation (GI): Soft to palpation and nontender Auscultation: normal bowel sounds Skin General skin exam: no rashes or lesions noted Neuro General: patient oriented x3, no focal motor deficits and No confusion Extrem General: Yes full ROM Psych Appearance: grossly normal Results AMB Hemoglobin A1c AMB Hemoglobin A1c 5.9 % Last Edit by THUY Keys on 11/11/23 09:1 5 Results Reviewed Results Reviewed: Laboratory Last Values Hgb A1c (Clinic) 5.9 % (4.0-6.0) 11/11/23 09:11 Assessment and Plan Assessment & Plan (1) Physical exam: Code(s): Z00.00 - Encounter for general adult medical examination without abnormal findings Plan: Repeat in a year. (2) Diabetes mellitus type 2 in obese: Code(s): E11.69 - Type 2 diabetes mellitus with other specified complication; E66.9 - Obesity, unspecified Plan: Continue metformin. A1c goal is equal or less than 7%. Orders: Orders Lipid Panel 4 Months E78.5 - Hyperlipidemia, unspecified AMB Hemoglobin A1c Today E11.69 - Type 2 diabetes mellitus with other specified complication, E66.9 - Obesity, unspecified Microalbumin, Random (w Creat) 4 Months E11.9 - Type 2 diabetes mellitus without complications Comprehensive [place]. Panel Fast 4 Months E11.69 - Type 2 diabetes mellitus with other specified complication, E66.9 - Obesity, unspecified Medications: New fenofibrate 160 mg PO DAILY 90 days 90 tabs 1RF E78.2 - Mixed hyperlipidemia Discontinued fenofibrate Discontinued Reason: Patient Completed Course 54 mg PO DAILY 90 days 90 tabs 1RF E78.2 - Mixed hyperlipidemia Coding Level of Care Code Est Pt Prev Care >65y(00913) Diagnoses Physical exam Z00.00 Diabetes mellitus type 2 in obese E11.69; E66.9 Additional Codes NYDIA-7 Assessment Billing - NYDIA-7 Assessment Tool: NYDIA-7 Assessment 67155 ([id number]) Time Spent (min) 33
== END 2023-11-11 09:55 | disposition home or self-care (01) ==
PROVIDERS: Visit Provider Internal Medicine
DX: Z00.00 Encounter for general adult medical examination without abnormal findings (principal); E11.69 Type 2 diabetes mellitus with other specified complication; E66.9 Obesity, unspecified; Z68.38 Body mass index [BMI] 38.0-38.9, adult
CPT/HCPCS: 83036; 99397

== ENCOUNTER 2023-12-28 09:43 | Outpatient (AMB) | payer MEDICARE, SELFPAY ==
[2023-12-28 09:48] VITALS: BP 118/74; PULSE 67; O2SAT 96; BMI 38.4
--- NOTE | 2023-12-28 09:48 | A.OFFVIS_ITS ---
Intake Vital Signs 12/28/23 09:48 Height 5 ft 10 in Weight 267 lb 13.786 oz BMI 38.4 BP 118/74 Blood Pressure Location Lt brachial Position Sitting Pulse 67 Pulse Source Pulse Oximeter Pulse Oximetry (%) 96 Oxygen Delivery Method Room Air Intake Visit Reasons: Obstructive sleep apnea Intake Note: pt is here for follow up of PENG and needs us to help get him organized for a new replacement machine, will need home sleep study to prove PENG. 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 Allergies atorvastatin [From LIPITOR] Adverse Reaction (Severe, Verified 12/28/23 10:00) transaminitis Medication List - Last Reconciled 12/28/23 by Mikayla Lobo MD azelastine 1 spray intranasal BEDTIME 30 days blood sugar diagnostic (DesallTouch Ultra Test strips) Use 1 test strips once a day blood-glucose meter (DesallTouch UltraMini kit) As directed blood-glucose meter (DesallTouch Ultra2 Meter) As directed celecoxib 200 mg PO BID coenzyme Q10 (CoQ-10) 100 mg PO DAILY fenofibrate 160 mg PO DAILY 90 days hydrochlorothiazide 25 mg PO QAM lancets (DesallTouch Delica Plus Lancet) Use 1 lancet once a day lancets (DesallTouch UltraSoft Lancets) Use 1 lancet once a day lovastatin 80 mg (2 x 40 mg) PO DAILY 90 days metformin 500 mg PO DAILY 90 days ox-jyz-iqofz-C5-unffjyn-tlsmmh [id number] mcg (Centrum Silver Men) 1 tab PO DAILY rlgwvgmx-utwv-qmzki-oreg-capry 100 mg-150 mg- 50 mg-150 mg 1 cap PO DAILY Do you need a note to return to daycare/school/sports/work: No HPI Obstructive sleep apnea HPI Details Kiko is 68 years old gentleman with the gross obesity, and diagnosis of obstructive sleep apnea, since about 8-10 years ago. He has been using the same CPAP machine very regularly, and sleeps well. He uses nasal mask which is comfortable . Lately his CPAP machine is not transmitting any data. Because the CPAP machine is 2 0. He has not able to get new supplies. He has not been able to lose much weight . [facility] Medical History Mild major depression Arthritis History of blood transfusion PENG on CPAP Obesity (BMI 30-39.9) Obesity due to excess calories with serious comorbidity Shoulder pain Former smoker Obese Essential hypertension Diabetes mellitus type 2 in obese Mixed hyperlipidemia Surgical History H/O colonoscopy History of skin cancer S/P ureteral reimplantation Family History Father Lung cancer Mother Diabetes Hypertension Stroke Social History Housing: House Alcohol intake: former Patient Tobacco Use Status: Former Tobacco user Tobacco use type: Cigarette e-Cigarette/Vaping Use: Never Used Second Hand Smoke Exposure: No Advance Directives Date on File: 06/17/20 service: No Current occupational status: unemployed Cognitive needs: No Hearing needs: Yes Vision needs: No Review of Systems Const All systems reviewed & are unremarkable except as noted in HPI and below Eyes Reports no additional complaints, Denies change in vision and Denies other visual disturbances ENT Reports no additional complaints Card Denies chest pain at rest, Denies chest pain with activity, Denies edema, Denies irregular heart rhythm, Denies claudication, Denies dyspnea, Denies dyspnea on exertion, Denies orthopnea, Denies paroxysmal nocturnal dyspnea and Denies slow heart rate Resp Denies cough, Denies dyspnea, Denies dyspnea on exertion and Denies wheezing GI Denies abdominal pain, Denies change in bowel habits, Denies excessive flatus, Denies nausea and Denies vomiting Denies urinary hesitancy, Denies urinary incontinence and Denies urinary urgency Musc Denies abnormal gait, Denies atrophy, Denies deformity and Denies limited range of motion Skin/Breast Denies bleeding lesions, Denies changing lesions and Denies rash Neuro Denies abnormal gait and Denies lack of coordination Psych Reports no additional complaints Aller/Immun Denies wheezing Physical Exam Vital Signs: Last Vital Signs Pulse 67 12/28/23 09:48 BP 118/74 12/28/23 09:48 Pulse Ox 96 12/28/23 09:48 Oxygen Delivery Method Room Air 12/28/23 09:48 BMI result Body Mass Index 38.4 Const General: healthy appearing (Except for being overweight) and comfortable Orientation/consciousness: patient oriented x3 HEENT Head: Yes normal to inspection General nose exam: No nasal polyps present and No nasal discharge present Face and sinus: Yes sinuses nontender Mouth: oropharynx normal Throat: Yes posterior oropharynx normal Eyes General: appearance normal, both eyes and all related structures Neck Neck: Yes normal visual inspection, Yes no lymphadenopathy, Yes trachea midline and Yes no JVD Thyroid: Thyroid normal Chest Chest palpation & inspection: normal inspection of the chest, normal palpation of entire chest wall and no tenderness Resp Effort & Inspection: normal respiratory effort Auscultation: clear to auscultation bilaterally, no crackles and no wheezes Cardio Palpation: normal PMI Rate: regular rate Rhythm: regular rhythm Heart sounds: no gallops and no murmurs Peripheral pulses: Peripheral pulses 2+ throughout GI Palpation (GI): Soft to palpation, Tenderness to palpation present (GI), No hepatosplenomegaly present and Palpable mass present Auscultation: normal bowel sounds Back/Spine/Pelvis Thoracic/Lumbar Spine: thoracic and lumbar spine normal to inspection Skin General skin exam: no rashes or lesions noted Neuro General: patient oriented x3 and no focal motor deficits Cranial nerves: Yes CN's II-XII intact bilaterally Extrem General: Yes normal to inspection, Yes no clubbing, cyanosis or edema and Yes no calf tenderness Psych Speech and movement: Normal speech and movement present Results Reviewed Results Reviewed: Compliance data not available Assessment & Plan Assessment & Plan (1) Obesity due to excess calories with serious comorbidity: Comment: Patient is grossly obese, Not able to do much exercise because of his osteoarthritis. Trying to watch his diet as much as he can. Code(s): E66.09 - Other obesity due to excess calories Plan: Advised to continue watching his diet and try to lose weight (2) PENG on CPAP: Comment: Known to have obstructive sleep apnea since 2015, after a home sleep study which showed obstructive sleep apnea. Has been compliant and benefiting. He is using a full face mask which seems to be fairly comfortable because he has applied some pads under the straps. He likes to change DME for getting timely supplies. We will help him in this issue. Had a good discussion and he is encouraged to continue using the CPAP regularly. Code(s): G47.33 - Obstructive sleep apnea (adult) (pediatric); Z99.89 - Dependence on other enabling machines and devices Plan: As his CPAP device is 9 years old, it is not transmitting the data for compliance report, He needs a new updated CPAP device . But before that we need to reconfirm the diagnosis. So I a.m. ordering a home- based sleep study. Orders: Orders RT home sleep study Today E66.09 - Other obesity due to excess calories, G47.33 - Obstructive sleep apnea (adult) (pediatric), Z99.89 - Dependence on other enabling machines and devices Coding Level of Care Code Est Pt Level 3 (98596) Diagnoses Obesity due to excess calories with serious comorbidity E66.09 PENG on CPAP G47.33; Z99.89
== END 2023-12-28 10:16 | disposition home or self-care (01) ==
PROVIDERS: PCP Internal Medicine; Visit Provider Internal Medicine
DX: E66.09 Other obesity due to excess calories (principal); G47.33 Obstructive sleep apnea (adult) (pediatric); Z99.89 Dependence on other enabling machines and devices
CPT/HCPCS: 99213

== ENCOUNTER → 2023-12-28 09:43 | Outpatient (BNVA) | payer MEDICARE, SELFPAY | PROVIDERS: PCP Internal Medicine; Visit Provider Internal Medicine | DX: G47.33 Obstructive sleep apnea (adult) (pediatric) (principal); E66.09 Other obesity due to excess calories; Z99.89 Dependence on other enabling machines and devices; Z68.38 Body mass index [BMI] 38.0-38.9, adult | CPT/HCPCS: 99212 ==

== ENCOUNTER 2024-03-06 09:14 | Outpatient (AMB) | payer MEDICARE, SELFPAY ==
[2024-03-06 10:04] VITALS: BP 120/78; PULSE 67; TEMP 36.9; O2SAT 97; BMI 38.4
--- NOTE | 2024-03-06 10:04 | MHC.OFFWIV ---
Intake Vital Signs 03/06/24 10:04 Height 5 ft 10 in Weight 268 lb BMI 38.4 BP 120/78 Blood Pressure Location Rt brachial Position Sitting Pulse 67 Pulse Source Pulse Oximeter Temp 98.4 F Temp Source Oral Pulse Oximetry (%) 97 Intake Visit Reasons: EP lft leg swollen paun Intake Note: pt is here for left leg swelling with pain Patient Tobacco Use Status: Former Tobacco user Allergies atorvastatin [From LIPITOR] Adverse Reaction (Severe, Verified 03/06/24 10:05) transaminitis Do you need a note to return to daycare/school/sports/work: No HPI HPI Comments History of Present Illness Details Patient presents to the walk-in today for sick visit Endorses atraumatic left lower extremity pain and swelling Reports woke up and noticed pain and swelling to the left leg Try to do some work around the yard but it only worsened his pain And denies history of DVT, PE or current use of anticoagulation PFSH Medical History Mild major depression Arthritis History of blood transfusion PENG on CPAP Obesity (BMI 30-39.9) Obesity due to excess calories with serious comorbidity Shoulder pain Former smoker Obese Essential hypertension Diabetes mellitus type 2 in obese Mixed hyperlipidemia Surgical History H/O colonoscopy History of skin cancer S/P ureteral reimplantation Family History Father Lung cancer Mother Diabetes Hypertension Stroke Social History Housing: House Alcohol intake: former Patient Tobacco Use Status: Former Tobacco user Tobacco use type: Cigarette e-Cigarette/Vaping Use: Never Used Second Hand Smoke Exposure: No Advance Directives Date on File: 06/17/20 service: No Current occupational status: unemployed Cognitive needs: No Hearing needs: Yes Vision needs: No Review of Systems Const All systems reviewed & are unremarkable except as noted in HPI and below Physical Exam Vital Signs: Last Vital Signs Temp 98.4 F 03/06/24 10:04 Pulse 67 03/06/24 10:04 BP 120/78 03/06/24 10:04 Pulse Ox 97 03/06/24 10:04 BMI result Body Mass Index 38.4 General: awake, alert, oriented. Answers questions appropriately. Fully engaged in examination. Skin: warm, dry, intact HEENT: Normocephalic. Hearing intact. Cardiac: External chest normal in appearance. Respiratory: No cough, audible wheezing or stridor. Abdomen: without gross distension. MS: Swelling left lower extremity, tenderness to palpation. 2+ cap refill. + PT, DP pulses. Light touch sensation intact. Neurological: Oriented to person, place, time and situation. Thought process intact. No gait abnormalities appreciated. Psychiatric: Appropriate mood and affect. Good judgment and insight. Results Reviewed Results Reviewed: Ultrasound ordered: Positive for DVT Assessment & Plan Assessment & Plan (1) Swelling of left lower extremity: Code(s): M79.89 - Other specified soft tissue disorders Plan Ultrasound ordered: Positive for DVT 10/2023 LFTs within normal limit Eliquis 30 day DVT starter pack ordered. Patient advised on cautions for use. He is aware to discontinue Celebrex, offered patient short course of tramadol that he has tolerated in the past but he declined Follow up with primary care doctor one-week as planned Return here for any new or worsening symptoms Orders: Orders US venous duplex LE LT Today M79.89 - Other specified soft tissue disorders Medications: New apixaban (Eliquis DVT-PE Treat 30D Start) 5 mg PO BID 74 ea 0RF Coding Level of Care Code Est Pt Level 3 (80427) Diagnoses Swelling of left lower extremity M79.89
== END 2024-03-06 11:21 | disposition home or self-care (01) ==
PROVIDERS: PCP Internal Medicine; Visit Provider Registered Nurse Emergency
DX: M79.89 Other specified soft tissue disorders (principal)
CPT/HCPCS: 99213

== ENCOUNTER 2024-03-06 10:55 | Outpatient (REF) | payer MEDICARE, SELFPAY ==
--- NOTE | ~2024-03-06 | US_ITS ---
EXAMINATION: US VENOUS ULTRASOUND WITH DOPPLER LOWER EXTREMITY, LEFT CLINICAL INFORMATION: Left lower extremity edema. COMPARISON: None available. TECHNIQUE: Ultrasound of the deep veins is performed from the hip to the calf with compression sonography and color and pulse Doppler assessment. Spectral analysis with color-flow imaging is performed. FINDINGS: There is evidence of thrombus in the left lower extremity. There is partial thrombosis involving the left common femoral and greater saphenous veins with demonstration of partial flow in the left common femoral vein and greater saphenous vein. There is complete thrombosis with no evidence of flow involving the proximal, mid and distal aspects of the left femoral vein, profunda, popliteal vein and imaged portion of left peroneal vein. Imaged portion of left posterior tibial vein appears patent, although visualization of the calf veins is limited. There is no significant popliteal fossa cyst. US/US venous duplex LE IMPRESSION: Left lower extremity deep venous thrombosis as detailed above. This study was presented today 03/06/2024 for interpretation. Stat results provided at this time as requested by referring provider.
== END 2024-03-06 10:56 | disposition home or self-care (01) ==
LOC: HO.HMGCX 10:55
PROVIDERS: PCP Internal Medicine; Visit Provider Registered Nurse Emergency
DX: M79.89 Other specified soft tissue disorders (principal); M79.605 Pain in left leg
CPT/HCPCS: 93971

== ENCOUNTER → 2024-03-13 08:45 | Outpatient (REF) | payer MEDICARE, SELFPAY | LOC: HO.SL 08:45 | PROVIDERS: PCP Internal Medicine; Visit Provider Internal Medicine | DX: G47.33 Obstructive sleep apnea (adult) (pediatric) (principal); E66.09 Other obesity due to excess calories; Z99.89 Dependence on other enabling machines and devices | CPT/HCPCS: 95806 ==

== ENCOUNTER → 2024-03-13 09:07 | Outpatient (BNV) | payer MEDICARE, SELFPAY | PROVIDERS: PCP Internal Medicine; Visit Provider Internal Medicine | DX: G47.33 Obstructive sleep apnea (adult) (pediatric) (principal) | CPT/HCPCS: 95806 ==

== ENCOUNTER 2024-03-14 12:48 | Outpatient (AMB) | payer MEDICARE, SELFPAY ==
[2024-03-14 13:13] VITALS: BP 132/70; PULSE 76; O2SAT 98; BMI 36.4
--- NOTE | 2024-03-14 13:13 | A.OFFPC_ITS ---
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 A1c within goal. Blood pressure stable. Dietary changes were advised for his cholesterol. He went to urgent care due to left leg swelling and had an ultrasound showing left leg DVT. He said 3 weeks before he had a 4 hour trip to [place] and stay there for few days and came back. He has obese with a BMI of 36.5 and was advised to diet and exercise to reach BMI goal less than 30. He is obese and is over 65 which are risk factors to develop DVT. He stopped taking fenofibrate after being diagnosed with DVT. Will be referred to vascular surgery and Hematology-Oncology to see how long he needs for anticoagulation. [facility] Medical History (Updated 03/14/24 @ 13:41 by Lara Lobo MD) Mild major depression Arthritis History of blood transfusion PENG on CPAP Obesity (BMI 30-39.9) Obesity due to excess calories with serious comorbidity Shoulder pain Former smoker Obese Essential hypertension Diabetes mellitus type 2 in obese Mixed hyperlipidemia Surgical History H/O colonoscopy History of skin cancer S/P ureteral reimplantation Family History Father Lung cancer Mother Diabetes Hypertension Stroke Social History Housing: House Alcohol intake: former Patient Tobacco Use Status: Former Tobacco user Tobacco use type: Cigarette e-Cigarette/Vaping Use: Never Used Second Hand Smoke Exposure: No Advance Directives Date on File: 06/17/20 service: No Current occupational status: unemployed Cognitive needs: No Hearing needs: Yes Vision needs: No Questionnaire Thrive Questionnaire Date Thrive assessed: 11/11/23 I am a: Patient What is your living situation today?: I have a steady place to live Within the past 12 months, did the food you bought not last and you didn't have the money to get more?: Never true Within the past 12 months, did you worry whether your food would run out before you got money to buy more?: Never true Do you have trouble paying for medicines?: No Do you have trouble getting transportation to medical appointments?: No Do you have trouble paying your heating and electricity bill?: No Do you have trouble taking care of your child, family member or friend?: No Do you have trouble with day-to-day activities such as bathing, preparing meals, shopping, managing finances, etc.?: No Are you currently unemployed and looking for a job?: No Are you interested in more education?: No Please select the resources that you would like help with: None THRIVE Score: 0 AUDIT C Alcohol Use Questionnaire (AUDIT-C) 1. How often do you have a drink containing alcohol?: Never Total Score: 0 NYDIA-7 AMB Questionnaire NYDIA-7 Date NYDIA - 7 assessed: 11/11/23 Source: Developed by Drs. Chas Calderon, Maggie Miranda, Manohar Hollingsworth and colleagues, with an educational douglas from [employer]. Review of Systems Const All systems reviewed & are unremarkable except as noted in HPI and below Card Denies chest pain at rest, Denies chest pain with activity, Denies edema, Denies irregular heart rhythm, Denies claudication, Denies dyspnea, Denies dyspnea on exertion, Denies orthopnea, Denies paroxysmal nocturnal dyspnea and Denies slow heart rate Resp Denies cough, Denies dyspnea and Denies dyspnea on exertion GI Denies abdominal pain, Denies change in bowel habits, Denies excessive flatus, Denies nausea and Denies vomiting Denies urinary hesitancy, Denies urinary incontinence and Denies urinary urgency Musc Reports arthralgias Physical exam (Primary Care) Vital Signs: Last Vital Signs Pulse 76 03/14/24 13:13 BP 132/70 03/14/24 13:13 Pulse Ox 98 03/14/24 13:13 Oxygen Delivery Method Room Air 03/14/24 13:13 BMI result Body Mass Index 36.4 BMI Assessment/Plan discussion: High BMI High, discussed plan: lifestyle, weight reduction, dietary and physical activity Tobacco/Smoking Status: Tobacco use Status Tobacco use date assessed 11/11/23 03/14/24 13:13 Patient Tobacco Use Status Former Tobacco user 03/14/24 13:13 Tobacco use type Cigarette 03/14/24 13:13 e-Cigarette/Vaping Use Never Used 03/14/24 13:13 Thrive Assessment: Date of Thrive Assessment Date Thrive assessed 11/11/23 03/14/24 13:13 Const Limitations: ambulation with cane Resp Effort & Inspection: normal respiratory effort Auscultation: clear to auscultation bilaterally Cardio Jugular venous distension: no JVD Rate: regular rate Rhythm: regular rhythm Heart sounds: S1 normal heart sound present and S2 normal heart sound present Extrem General: Yes full ROM Results AMB Hemoglobin A1c AMB Hemoglobin A1c 5.6 % Last Edit by THUY Woodward on 03/14/24 13:30 Results Reviewed Results Reviewed: Laboratory Last Values Hgb A1c (Clinic) 5.6 % (4.0-6.0) 03/14/24 11:10 Assessment and Plan Assessment & Plan (1) Left leg DVT: Code(s): I82.402 - Acute embolism and thrombosis of unspecified deep veins of left lower extremity Plan: Continue Eliquis. Referred to vascular surgery. Referred to Hematology- Oncology. (2) Diabetes mellitus type 2 in obese: Code(s): E11.69 - Type 2 diabetes mellitus with other specified complication; E66.9 - Obesity, unspecified Plan: Continue metformin. A1c goal is equal or less than 7%. (3) Essential hypertension: Code(s): I10 - Essential (primary) hypertension Plan: Continue hydrochlorothiazide. Blood pressure goal is equal or less than 130/80. (4) Mixed hyperlipidemia: Code(s): E78.2 - Mixed hyperlipidemia Plan: Continue statins. Repeat lipid panel. LDL goal is less than 70. Orders: Orders AMB Hemoglobin A1c Today E11.69 - Type 2 diabetes mellitus with other specified complication, E66.9 - Obesity, unspecified Referrals 2 Hematology & Oncology Referral I82.402 - Acute embolism and thrombosis of unspecified deep veins of left lower extremity Vascular Surgery Referral I82.402 - Acute embolism and thrombosis of unspecified deep veins of left lower extremity, I87.2 - Venous insufficiency (chronic) (peripheral) Medications: Discontinued fenofibrate Discontinued Reason: Patient Completed Course 160 mg PO DAILY 90 days 90 tabs 1RF E78.2 - Mixed hyperlipidemia Coding Level of Care Code Est Pt Level 4 (98285) Complex EM visit Add On G2211 Diagnoses Left leg DVT I82.402 Diabetes mellitus type 2 in obese E11.69; E66.9 Essential hypertension I10 Mixed hyperlipidemia E78.2 Time Spent (min) 24
== END 2024-03-14 13:50 | disposition home or self-care (01) ==
PROVIDERS: PCP Internal Medicine; Visit Provider Internal Medicine
DX: I82.402 Acute embolism and thrombosis of unspecified deep veins of left lower extremity (principal); E11.69 Type 2 diabetes mellitus with other specified complication; E66.9 Obesity, unspecified; Z68.36 Body mass index [BMI] 36.0-36.9, adult; I10 Essential (primary) hypertension; E78.2 Mixed hyperlipidemia
CPT/HCPCS: 83036; 99214; G2211

== ENCOUNTER 2024-03-27 09:30 | Outpatient (AMB) | payer MEDICARE, SELFPAY ==
[2024-03-27 09:35] VITALS: BP 120/70; PULSE 73; O2SAT 96; BMI 36.5
--- NOTE | 2024-03-27 09:35 | MHC.OFFVIS ---
Vital Signs 03/27/24 09:35 Height 5 ft 10 in Weight 254 lb 10.142 oz BMI 36.5 BP 120/70 Blood Pressure Location Lt brachial Position Sitting Pulse 73 Pulse Source Pulse Oximeter Pulse Oximetry (%) 96 Oxygen Delivery Method Room Air Intake Visit Reasons: Obstructive sleep apnea Intake Note: pt is here for follow up and states he is doing okay, hot weather does not agree with him, but he sits and is fine. 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 Allergies atorvastatin [From LIPITOR] Adverse Reaction (Severe, Verified 03/27/24 09:59) transaminitis Medication List - Last Reconciled 03/27/24 by Mikayla Lobo MD apixaban (Eliquis DVT-PE Treat 30D Start) 5 mg PO BID azelastine 1 spray intranasal BEDTIME 30 days azelastine 1 spray intranasal BID 30 days blood sugar diagnostic (Lan[employer] Ultra Test strips) Use 1 test strips once a day blood-glucose meter (Médecins Sans FrontièresTouch UltraMini kit) As directed blood-glucose meter (OneTouch Ultra2 Meter) As directed coenzyme Q10 (CoQ-10) 100 mg PO DAILY hydrochlorothiazide 25 mg PO QAM lancets (Médecins Sans FrontièresTouch Delica Plus Lancet) Use 1 lancet once a day lancets (OneTouch UltraSoft Lancets) Use 1 lancet once a day lovastatin 80 mg (2 x 40 mg) PO DAILY 90 days metformin 500 mg PO DAILY 90 days gq-wfw-grbwo-D8-kpltfus-bynqol [id number] mcg (Centrum Silver Men) 1 tab PO DAILY ogvvthue-rqxc-lvbpo-oreg-capry 100 mg-150 mg- 50 mg-150 mg 1 cap PO DAILY Do you need a note to return to daycare/school/sports/work: No HPI HPI Obstructive sleep apnea: Details: 68 years old gentleman grossly obese , with history of obstructive sleep apnea and use of CPAP device for the last 12 years, Is here for follow-up after his recent home-based sleep study. His weight has been the same without much reduction. He sleeps mostly in supine position. He uses CPAP very regularly but because his CPAP device is old, it is making some noises. He needs a new CPAP machine so we had done a home-based sleep study to reconfirm diagnosis of sleep apnea. Recently after a car drive to [place] and coming back he develops swelling of the left leg and has been diagnosed to have DVT. He is started on Eliquis. [facility] Medical History Mild major depression Arthritis History of blood transfusion PENG on CPAP Obesity (BMI 30-39.9) Obesity due to excess calories with serious comorbidity Shoulder pain Former smoker Obese Essential hypertension Diabetes mellitus type 2 in obese Mixed hyperlipidemia Surgical History H/O colonoscopy History of skin cancer S/P ureteral reimplantation Family History Father Lung cancer Mother Diabetes Hypertension Stroke Social History Housing: House Alcohol intake: former Patient Tobacco Use Status: Former Tobacco user Tobacco use type: Cigarette e-Cigarette/Vaping Use: Never Used Second Hand Smoke Exposure: No Advance Directives Date on File: 06/17/20 service: No Current occupational status: unemployed Cognitive needs: No Hearing needs: Yes Vision needs: No Review of Systems Const All systems reviewed & are unremarkable except as noted in HPI and below Eyes Reports no additional complaints, Denies change in vision and Denies other visual disturbances ENT Reports no additional complaints Card Denies chest pain at rest, Denies chest pain with activity, Denies edema, Denies irregular heart rhythm, Denies claudication, Denies dyspnea, Denies dyspnea on exertion, Denies orthopnea, Denies paroxysmal nocturnal dyspnea and Denies slow heart rate Resp Denies cough, Denies dyspnea, Denies dyspnea on exertion and Denies wheezing GI Denies abdominal pain, Denies change in bowel habits, Denies excessive flatus, Denies nausea and Denies vomiting Denies urinary hesitancy, Denies urinary incontinence and Denies urinary urgency Musc Denies abnormal gait, Denies atrophy, Denies deformity and Denies limited range of motion Skin/Breast Denies bleeding lesions, Denies changing lesions and Denies rash Neuro Denies abnormal gait and Denies lack of coordination Psych Reports no additional complaints Aller/Immun Denies wheezing Physical Exam Vital Signs: Last Vital Signs Pulse 73 03/27/24 09:35 BP 120/70 03/27/24 09:35 Pulse Ox 96 03/27/24 09:35 Oxygen Delivery Method Room Air 03/27/24 09:35 BMI result Body Mass Index 36.5 Const General: healthy appearing (Except for being overweight) and comfortable Orientation/consciousness: patient oriented x3 HEENT Head: Yes normal to inspection General nose exam: No nasal polyps present and No nasal discharge present Face and sinus: Yes sinuses nontender Mouth: oropharynx normal Throat: Yes posterior oropharynx normal Eyes General: appearance normal, both eyes and all related structures Neck Neck: Yes normal visual inspection, Yes no lymphadenopathy, Yes trachea midline and Yes no JVD Thyroid: Thyroid normal Chest Chest palpation & inspection: normal inspection of the chest, normal palpation of entire chest wall and no tenderness Resp Effort & Inspection: normal respiratory effort Auscultation: clear to auscultation bilaterally, no crackles and no wheezes Cardio Palpation: normal PMI Rate: regular rate Rhythm: regular rhythm Heart sounds: no gallops and no murmurs Peripheral pulses: Peripheral pulses 2+ throughout GI Palpation (GI): Soft to palpation, Tenderness to palpation present (GI), No hepatosplenomegaly present and Palpable mass present Auscultation: normal bowel sounds Back/Spine/Pelvis Thoracic/Lumbar Spine: thoracic and lumbar spine normal to inspection Skin General skin exam: no rashes or lesions noted Neuro General: patient oriented x3 and no focal motor deficits Cranial nerves: Yes CN's II-XII intact bilaterally Extrem General: Yes normal to inspection, Yes no clubbing, cyanosis or edema and Yes no calf tenderness Psych Speech and movement: Normal speech and movement present Results Reviewed Results Reviewed: Results of home-based sleep study performed on 03/13/2024. Total sleep time AHI 13.3 and all the sleep was in supine position. No nocturnal hypoxemia. Assessment & Plan Assessment & Plan (1) PENG on CPAP: Comment: Known to have obstructive sleep apnea since 2014, after a home sleep study which showed obstructive sleep apnea. Has been compliant and benefiting. He has been using CPAP all these years very regularly. However his CPAP device is 12 years old and sometimes fails to transmit the compliance data. He needs a new CPAP machine. For this home-based sleep study was performed. It confirms obstructive sleep apnea, total sleep time AHI 13.3 which is consistent with mild to moderate degree of PENG. All the sleep was in supine position, and he would not be able to adapt to sleeping in the lateral position, because of his back pain. Code(s): G47.33 - Obstructive sleep apnea (adult) (pediatric); Z99.89 - Dependence on other enabling machines and devices Category: Medical Plan: Considering his longstanding history of PENG, no recent change, in the weight associated comorbid duty such as hyperlipidemia and DVT, he is better of using CPAP regularly. I will send orders for a new CPAP machine with auto PAP mode , pressure setting 6-20 cm. He prefers to use nasal mask, wide and of large size. (2) Obesity due to excess calories with serious comorbidity: Comment: Patient is grossly obese, Not able to do much exercise because of his osteoarthritis. Trying to watch his diet as much as he can. Code(s): E66.09 - Other obesity due to excess calories Category: Medical Plan: Again discussed about diet and, need to do some exercise daily, He will do his best. Coding Level of Care Code Est Pt Level 3 (72734) Diagnoses PENG on CPAP G47.33; Z99.89 Obesity due to excess calories with serious comorbidity E66.09
== END 2024-03-27 09:59 | disposition home or self-care (01) ==
PROVIDERS: PCP Internal Medicine; Visit Provider Internal Medicine
DX: G47.33 Obstructive sleep apnea (adult) (pediatric) (principal); Z99.89 Dependence on other enabling machines and devices; E66.09 Other obesity due to excess calories
CPT/HCPCS: 99213

== ENCOUNTER → 2024-03-27 09:30 | Outpatient (BNVA) | payer MEDICARE, SELFPAY | PROVIDERS: PCP Internal Medicine; Visit Provider Internal Medicine | DX: G47.33 Obstructive sleep apnea (adult) (pediatric) (principal); E66.09 Other obesity due to excess calories; Z99.89 Dependence on other enabling machines and devices; Z68.36 Body mass index [BMI] 36.0-36.9, adult | CPT/HCPCS: 99212 ==

== ENCOUNTER → 2024-03-27 13:38 | Outpatient (BNV) | payer MEDICARE, SELFPAY | PROVIDERS: PCP Internal Medicine; Referring Provider Internal Medicine; Visit Provider Internal Medicine Medical Oncology | DX: I82.402 Acute embolism and thrombosis of unspecified deep veins of left lower extremity (principal) | CPT/HCPCS: 99204; 99213 ==

== ENCOUNTER 2024-04-21 10:21 | Outpatient (REF) | payer MEDICARE, SELFPAY ==
--- NOTE | ~2024-04-21 | US_ITS ---
EXAMINATION: US VENOUS ULTRASOUND WITH DOPPLER LOWER EXTREMITY, LEFT CLINICAL INFORMATION: DVT follow-up. COMPARISON: DVT ultrasound 03/06/2024. TECHNIQUE: Ultrasound of the deep veins is performed from the hip to the calf with compression sonography and color and pulse Doppler assessment. Spectral analysis with color-flow imaging is performed. FINDINGS: Complete thrombosis of the left proximal to distal femoral vein and left popliteal vein, similar compared to 03/06/2024. Previously described partial thrombosis involving the left common femoral vein and great saphenous vein is resolved. Previously described complete thrombosis of the left profunda femoral vein and left peroneal vein is resolved. No new segment of the venous thrombosis. US/US venous duplex LE LT IMPRESSION: Again noted extensive left lower extremity the venous thrombosis, however decreased compared to 03/06/2024.
== END 2024-04-21 10:22 | disposition home or self-care (01) ==
LOC: HO.HMGCX 10:21
PROVIDERS: PCP Internal Medicine; Visit Provider Internal Medicine Medical Oncology
DX: I82.402 Acute embolism and thrombosis of unspecified deep veins of left lower extremity (principal)
CPT/HCPCS: 93971

== ENCOUNTER 2024-05-18 13:15 | Outpatient (AMB) | payer MEDICARE, SELFPAY ==
[2024-05-18 13:18] VITALS: BP 122/64; BMI 37.5
--- NOTE | 2024-05-18 13:18 | A.OFFVIS_ITS ---
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 Complaints include pain over varicosities, swelling of lower extremities, cramping, fatigue, and heaviness of the lower extremities. It has been affecting there daily activities including walking. It is noted more so in left leg. Patient reports prior history of left lower extremity DVT as seen on 03/06. Noted after car ride to [place] Patient denies any prior venous surgery Patient denies any history of phlebitis. Trial of compression includes - [id number] They now present for vascular evaluation regarding their varicose veins. [facility] Medical History Mild major depression Arthritis History of blood transfusion PENG on CPAP Obesity (BMI 30-39.9) Obesity due to excess calories with serious comorbidity Shoulder pain Former smoker Obese Essential hypertension Diabetes mellitus type 2 in obese Mixed hyperlipidemia Surgical History H/O colonoscopy History of skin cancer S/P ureteral reimplantation Family History Father Lung cancer Mother Diabetes Hypertension Stroke Social History Housing: House Alcohol intake: former Patient Tobacco Use Status: Former Tobacco user Tobacco use type: Cigarette e-Cigarette/Vaping Use: Never Used Second Hand Smoke Exposure: No Advance Directives Date on File: 06/17/20 service: No Current occupational status: unemployed Cognitive needs: No Hearing needs: Yes Vision needs: No Review of Systems Const Reports as per HPI ENT Reports no additional complaints Card Denies chest pain, Denies chest pain at rest and Denies chest pain with activity Resp Denies chest congestion and Denies cough GI Reports no additional complaints Musc Details: pain over varicosities, aching of lower extremities, swelling, cramping, heaviness and tiredness, itching Denies abnormal gait Skin/Breast Reports pruritus and Denies wounds Neuro Reports no additional complaints and Denies abnormal gait Psych Denies no additional complaints Physical Exam Vital Signs: Last Vital Signs BP 122/64 05/18/24 13:18 BMI result Body Mass Index 37.5 Const General: cooperative, healthy appearing and comfortable Orientation/consciousness: oriented to person, oriented to place and oriented to time Neck Carotids: no bruits Chest Chest palpation & inspection: normal inspection of the chest and normal palpation of entire chest wall Resp Effort & Inspection: normal respiratory effort and able to speak in complete sentences Cardio Rate: regular rate Heart sounds: S1 normal heart sound present and S2 normal heart sound present Peripheral pulses: Peripheral pulses 2+ throughout GI Inspection: Yes normal to inspection Skin Other: +2 edema, large rope-like varicosities greater than 4 mm CEAP Classification C4 - skin color changes Ep - Etiology Primary As - superficial veins P - reflux General skin exam: dry skin Neuro General: oriented to person, oriented to place and oriented to time Extrem Right lower extremity: full ROM, normal capillary refill and edema Left lower extremity: full ROM, normal capillary refill and edema Psych Mental Status: mental status grossly normal Assessment & Plan Assessment & Plan (1) Varicose veins of left lower extremity with inflammation: Code(s): I83.12 - Varicose veins of left lower extremity with inflammation Category: Medical Plan: In short patient has an element of venous insufficiency. In addition prior history of DVT may be contributing to the overall reflux. I have taken the liberty of ordering venous insufficiency testing to better re-evaluate this. Depending on the findings may require intervention. Will be extremely conservative as he does have a prior history of DVT and would not want to affect his outflow. We did discuss routine conservative measures including compression elevation and exercise. I did give him literature regarding venous disease and where to purchase appropriate compression stockings. The patient will follow up with us after venous insufficiency testing. (2) Left leg DVT: Code(s): I82.402 - Acute embolism and thrombosis of unspecified deep veins of left lower extremity Category: Medical Qualifiers: Affected thrombotic vein of extremity: femoral Chronicity: chronic Qualified Code(s): I82.512 - Chronic embolism and thrombosis of left femoral vein Plan: As above this may be contributing to his overall lower extremity swelling. 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 This may be contributing to his overall lymphedema. We will workup venous disease 1st. Should that prove to be negative may benefit from lymphedema treatment. We will continue to follow this patient with you. Thank you for allowing us to assist in this patient's care. If there are any questions or concerns please do not hesitate to contact us. 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
== END 2024-05-18 14:12 | disposition home or self-care (01) ==
PROVIDERS: PCP Internal Medicine; Visit Provider Surgery Vascular Surgery
DX: I83.12 Varicose veins of left lower extremity with inflammation (principal); I82.512 Chronic embolism and thrombosis of left femoral vein; I89.0 Lymphedema, not elsewhere classified
CPT/HCPCS: 99204

== ENCOUNTER → 2024-05-18 13:15 | Outpatient (BNVA) | payer MEDICARE, SELFPAY | PROVIDERS: PCP Internal Medicine; Visit Provider Surgery Vascular Surgery | DX: I83.12 Varicose veins of left lower extremity with inflammation (principal); I83.812 Varicose veins of left lower extremity with pain; I82.512 Chronic embolism and thrombosis of left femoral vein; I89.0 Lymphedema, not elsewhere classified | CPT/HCPCS: 99202 ==

== ENCOUNTER 2024-05-25 09:22 | Outpatient (AMB) | payer MEDICARE, SELFPAY ==
[2024-05-25 09:27] VITALS: BP 120/70; PULSE 74; O2SAT 97; BMI 36.3
--- NOTE | 2024-05-25 09:27 | A.OFFVIS_ITS ---
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 Allergies atorvastatin [From LIPITOR] Adverse Reaction (Severe, Verified 05/25/24 09:43) transaminitis Medication List - Last Reconciled 05/25/24 by Mikayla Lobo MD apixaban (Eliquis) 5 mg PO BID apixaban (Eliquis DVT-PE Treat 30D Start) 5 mg PO BID azelastine 1 spray intranasal BEDTIME 30 days azelastine 1 spray intranasal BID 30 days blood sugar diagnostic (InfoReachTouch Ultra Test strips) Use 1 test strips once a day blood-glucose meter (InfoReachTouch UltraMini kit) As directed blood-glucose meter (InfoReachTouch Ultra2 Meter) As directed coenzyme Q10 (CoQ-10) 100 mg PO DAILY hydrochlorothiazide 25 mg PO QAM lancets (InfoReachTouch Delica Plus Lancet) Use 1 lancet once a day lancets (OneTouch UltraSoft Lancets) Use 1 lancet once a day lovastatin 80 mg (2 x 40 mg) PO DAILY 90 days metformin 500 mg PO DAILY 90 days ar-qte-rzfln-[id number]-ackmalv-obntim [id number] mcg (Centrum Silver Men) 1 tab PO DAILY fczfcyhm-trnz-mrltd-oreg-capry 100 mg-150 mg- 50 mg-150 mg 1 cap PO DAILY Do you need a note to return to daycare/school/sports/work: No HPI HPI Obstructive sleep apnea: Details: This 68 years old gentleman who is grossly overweight, and has obstructive sleep apnea, is here for follow-up, after he got his new CPAP device. He is happy with the new CPAP device is working well and he puts it on every day when he goes to sleep. However he usually wakes up after 3 or 4 hours with leg pains and after that he does not put it on. So his overall usage per night remains little bit less than 4 hours per night. He has definitely benefiting from the use of CPAP. Weight is down by a few lb, as he is watching his diet. He is diabetic and also has chronic DVT/pulmonary embolism , remains on Eliquis. Denies shortness of breath cough or wheezing. [facility] Medical History Mild major depression Arthritis History of blood transfusion PENG on CPAP Obesity (BMI 30-39.9) Obesity due to excess calories with serious comorbidity Shoulder pain Former smoker Obese Essential hypertension Diabetes mellitus type 2 in obese Mixed hyperlipidemia Surgical History H/O colonoscopy History of skin cancer S/P ureteral reimplantation Family History Father Lung cancer Mother Diabetes Hypertension Stroke Social History Housing: House Alcohol intake: former Patient Tobacco Use Status: Former Tobacco user Tobacco use type: Cigarette e-Cigarette/Vaping Use: Never Used Second Hand Smoke Exposure: No Advance Directives Date on File: 06/17/20 service: No Current occupational status: unemployed Cognitive needs: No Hearing needs: Yes Vision needs: No Review of Systems Const All systems reviewed & are unremarkable except as noted in HPI and below Eyes Reports no additional complaints, Denies change in vision and Denies other visual disturbances ENT Reports no additional complaints Card Denies chest pain at rest, Denies chest pain with activity, Denies edema, Denies irregular heart rhythm, Denies claudication, Denies dyspnea, Denies dyspnea on exertion, Denies orthopnea, Denies paroxysmal nocturnal dyspnea and Denies slow heart rate Resp Denies cough, Denies dyspnea, Denies dyspnea on exertion and Denies wheezing GI Denies abdominal pain, Denies change in bowel habits, Denies excessive flatus, Denies nausea and Denies vomiting Denies urinary hesitancy, Denies urinary incontinence and Denies urinary urgency Musc Denies abnormal gait, Denies atrophy, Denies deformity and Denies limited range of motion Skin/Breast Denies bleeding lesions, Denies changing lesions and Denies rash Neuro Denies abnormal gait and Denies lack of coordination Psych Reports no additional complaints Aller/Immun Denies wheezing Physical Exam Vital Signs: Last Vital Signs Pulse 74 05/25/24 09:27 BP 120/70 05/25/24 09:27 Pulse Ox 97 05/25/24 09:27 Oxygen Delivery Method Room Air 05/25/24 09:27 BMI result Body Mass Index 36.3 Const General: healthy appearing (Except for being overweight) and comfortable Orientation/consciousness: patient oriented x3 HEENT Head: Yes normal to inspection General nose exam: No nasal polyps present and No nasal discharge present Face and sinus: Yes sinuses nontender Mouth: oropharynx normal Throat: Yes posterior oropharynx normal Eyes General: appearance normal, both eyes and all related structures Neck Neck: Yes normal visual inspection, Yes no lymphadenopathy, Yes trachea midline and Yes no JVD Thyroid: Thyroid normal Chest Chest palpation & inspection: normal inspection of the chest, normal palpation of entire chest wall and no tenderness Resp Effort & Inspection: normal respiratory effort Auscultation: clear to auscultation bilaterally, no crackles and no wheezes Cardio Palpation: normal PMI Rate: regular rate Rhythm: regular rhythm Heart sounds: no gallops and no murmurs Peripheral pulses: Peripheral pulses 2+ throughout GI Palpation (GI): Soft to palpation, Tenderness to palpation present (GI), No hepatosplenomegaly present and Palpable mass present Auscultation: normal bowel sounds Back/Spine/Pelvis Thoracic/Lumbar Spine: thoracic and lumbar spine normal to inspection Skin General skin exam: no rashes or lesions noted Neuro General: patient oriented x3 and no focal motor deficits Cranial nerves: Yes CN's II-XII intact bilaterally Extrem General: Yes normal to inspection, Yes no clubbing, cyanosis or edema and Yes no calf tenderness Psych Speech and movement: Normal speech and movement present Results Reviewed Results Reviewed: Compliance report for the last 47 nights . Average usage per night is 3 hours 56 minutes, the median usage on the days of use is 4 hours 12 minute. He has only slight degree of air leak. Residual AHI 2.2 Assessment & Plan Assessment & Plan (1) Obesity due to excess calories with serious comorbidity: Comment: Patient is grossly obese, Not able to do much exercise because of his osteoarthritis. Trying to watch his diet as much as he can. This time he has lost about 9 lb of weight. Code(s): E66.09 - Other obesity due to excess calories Category: Medical Plan: Encouraged to continue watching diet, decrease the intake in the form of carbohydrates and increase intake veggies and salads. (2) PENG on CPAP: Comment: Known to have obstructive sleep apnea since 2015, after a home sleep study which showed obstructive sleep apnea. Has been compliant and benefiting. He has been using CPAP all these years very regularly. He did get new CPAP which is working fine. Usage is somewhat less than optimal. Code(s): G47.33 - Obstructive sleep apnea (adult) (pediatric); Z99.89 - Dependence on other enabling machines and devices Category: Medical Plan: Discussed about the duration of usage per night. He has to keep the CPAP on for more than 4 hours. Also advised to use for 1 or 2 hours during the daytime when he rests in the [place]. Coding Level of Care Code Est Pt Level 3 (56660) Diagnoses Obesity due to excess calories with serious comorbidity E66.09 PENG on CPAP G47.33; Z99.89
== END 2024-05-25 09:44 | disposition home or self-care (01) ==
PROVIDERS: PCP Internal Medicine; Visit Provider Internal Medicine
DX: E66.09 Other obesity due to excess calories (principal); G47.33 Obstructive sleep apnea (adult) (pediatric); Z99.89 Dependence on other enabling machines and devices
CPT/HCPCS: 99213

== ENCOUNTER → 2024-05-25 09:22 | Outpatient (BNVA) | payer MEDICARE, SELFPAY | PROVIDERS: PCP Internal Medicine; Visit Provider Internal Medicine | DX: G47.33 Obstructive sleep apnea (adult) (pediatric) (principal); E66.09 Other obesity due to excess calories; Z68.36 Body mass index [BMI] 36.0-36.9, adult; Z99.89 Dependence on other enabling machines and devices | CPT/HCPCS: 99212 ==

== ENCOUNTER 2024-05-31 08:10 | Outpatient (REF) | payer MEDICARE, SELFPAY ==
--- NOTE | ~2024-05-31 | US_ITS ---
EXAMINATION: US LOWER EXTREMITY VENOUS (REFLUX EXAM), BILATERAL CLINICAL INDICATION: Chronic venous insufficiency with lower extremity varicose veins with inflammation. History of known left lower extremity deep venous thrombosis COMPARISON: 04/21/2024 TECHNIQUE: Color flow triplex imaging and compression Doppler was performed to evaluate both the deep and the superficial systems of the right lower extremity. To evaluate the superficial system, the examination was performed in the upright position. Color-flow Doppler ultrasound and compression ultrasound were utilized. In addition, maneuvers were utilized to demonstrate reflux. Multiple longitudinal and transverse gallardo-scale as well as color and spectral Doppler images of the deep venous system of the left lower extremity. FINDINGS: 1. DEEP VENOUS ULTRASOUND OF THE RIGHT LOWER EXTREMITY: Common Femoral Vein: Compressible, normal respiratory variation and augmented flow. Femoral Vein: Compressible, normal color flow and augmentation. Popliteal Vein: Compressible, normal augmentation. Deep Reflux: There is no evidence of reflux in the deep system in either the common femoral vein, superficial femoral or the popliteal vein. There is no evidence of a Cortez's cyst. 2. SUPERFICIAL ULTRASOUND WITH DOPPLER OF RIGHT LOWER EXTREMITY: GREAT SAPHENOUS VEIN: Saphenofemoral Junction: 0.9 cm; Reflux: 0 ms Proximal Thigh: 0.5 cm; Reflux: 0 ms Mid Thigh: 0.5 cm; Reflux: 2760 ms Above Knee: 0.4 cm; Reflux: 2616 ms At Knee: 0.4 cm; Reflux: 2568 ms Below Knee: 0.6 cm; Reflux: 1204 ms Mid Calf: 0.3 cm; Reflux: 1076 ms Ankle: 0.3 cm; Reflux: 1400 ms DUPLICATED MEDIAL GREAT SAPHENOUS VEIN: Diameter: None imaged Reflux: NA DUPLICATED LATERAL GREAT SAPHENOUS VEIN: Diameter: None imaged Reflux: NA SMALL SAPHENOUS VEIN: Saphenopopliteal Junction: 0.2 cm cm; Reflux: 0 ms Proximal: 0.2 cm; Reflux: 0 ms Distal: 0.3 cm; Reflux: 0 ms VEIN OF GIACOMINI: Size: NA Reflux: NA PERFORATORS: Location: Mid thigh and distal calf Size: 0.3 cm Reflux: None VARICOSITIES: Location: Proximal and mid thigh off the great saphenous vein, proximal and mid calf Size: 0.3 to 0.4 cm Reflux: Ranging from 1468 ms to 3148 ms 3. DEEP VENOUS ULTRASOUND OF THE LEFT LOWER EXTREMITY: Common Femoral Vein: Compressible, normal respiratory variation and augmented flow. Great saphenous vein: Visualized segment demonstrates partial compressibility with residual echogenic thrombus. Femoral Vein: Echogenic thrombus with noncompressibility and no significant color or duplex flow throughout the thigh. Popliteal Vein: Echogenic thrombus with noncompressibility and no significant color or duplex flow. Deep Reflux: There is no evidence of reflux in the deep system in either the common femoral vein, superficial femoral or the popliteal vein. There is no evidence of a Cortez's cyst. US/US venous duplex LE BI IMPRESSION: 1. Right: Severe reflux in the great saphenous vein with multiple associated varicosities as described above. 2. Left: Persistent occlusive thrombus in the femoral and popliteal veins. Electronically signed by: Sanchez Marvin MD 06/06/2024 01:27 PM EDT
== END 2024-05-31 08:11 | disposition home or self-care (01) ==
LOC: HO.US 08:10
PROVIDERS: PCP Internal Medicine; Visit Provider Surgery Vascular Surgery
DX: I83.12 Varicose veins of left lower extremity with inflammation (principal)
CPT/HCPCS: 93970

== ENCOUNTER 2024-06-29 08:58 | Outpatient (AMB) | payer MEDICARE, SELFPAY ==
--- NOTE | 2024-06-29 09:00 | A.OFFVIS_ITS ---
Vital Signs 06/29/24 09:01 Height 5 ft 9 in Weight 245 lb BMI 36.2 Intake Visit Reasons: follow up s/p 05/31/24 Intake Note: follow up 05/31/24, the Left LE has a chronic DVT and Right LE has VV. Left LE has swelling Accompanied by: Self / Same As Patient Allergies atorvastatin [From LIPITOR] Adverse Reaction (Severe, Verified 06/29/24 09:05) transaminitis HPI HPI follow up s/p 05/31/24: Details: Very pleasant 68-year-old gentleman presents for follow-up regarding venous disease. He had a prior history of an acute DVT in February of 2024. He reports that this was after medicine change and a drive to [place]. He presented for venous insufficiency testing. Unfortunately there was acute appearance of clot on the left lower extremity so right lower extremity study was only done. He complains of swelling left more so than right. It has been affecting his daily activities including walking and ambulating. He now presents for follow- up with right leg venous insufficiency testing. [facility] Medical History Mild major depression Arthritis History of blood transfusion PENG on CPAP Obesity (BMI 30-39.9) Obesity due to excess calories with serious comorbidity Shoulder pain Former smoker Obese Essential hypertension Diabetes mellitus type 2 in obese Mixed hyperlipidemia Surgical History H/O colonoscopy History of skin cancer S/P ureteral reimplantation Family History Father Lung cancer Mother Diabetes Hypertension Stroke Social History (Updated 06/29/24 @ 09:06 by THUY Bah) Housing: House Alcohol intake: former Patient Tobacco Use Status: Current everyday Tobacco user Tobacco use type: Cigarette Cigarettes Per Day: 2 e-Cigarette/Vaping Use: Never Used Second Hand Smoke Exposure: No Advance Directives Date on File: 06/17/20 service: No Current occupational status: unemployed Cognitive needs: No Hearing needs: Yes Vision needs: No Review of Systems Const Reports as per HPI ENT Reports no additional complaints Card Denies chest pain, Denies chest pain at rest and Denies chest pain with activity Resp Denies chest congestion and Denies cough GI Reports no additional complaints Musc Details: pain over varicosities, aching of lower extremities, swelling, cramping, heaviness and tiredness, itching Denies abnormal gait Skin/Breast Reports pruritus and Denies wounds Neuro Reports no additional complaints and Denies abnormal gait Psych Denies no additional complaints Physical Exam Vital Signs: BMI result Body Mass Index 36.2 Const General: cooperative, healthy appearing and comfortable Orientation/consciousness: oriented to person, oriented to place and oriented to time Neck Carotids: no bruits Chest Chest palpation & inspection: normal inspection of the chest and normal palpation of entire chest wall Resp Effort & Inspection: normal respiratory effort and able to speak in complete sentences Cardio Rate: regular rate Heart sounds: S1 normal heart sound present and S2 normal heart sound present Peripheral pulses: Peripheral pulses 2+ throughout GI Inspection: Yes normal to inspection Skin Other: +2 edema, large rope-like varicosities greater than 4 mm CEAP Classification C4 - skin color changes Ep - Etiology Primary As - superficial veins P - reflux General skin exam: dry skin Neuro General: oriented to person, oriented to place and oriented to time Extrem Right lower extremity: full ROM, normal capillary refill and edema Left lower extremity: full ROM, normal capillary refill and edema Psych Mental Status: mental status grossly normal Results Reviewed Results Reviewed: Brief summary of venous insufficiency testing is as follows: right great saphenous vein: Positive right small saphenous vein: negative right accessory vein: none present Left side was not done Please note there is no evidence of any venous aneurysms or significant tortuosity Assessment & Plan Assessment & Plan (1) Varicose veins of left lower extremity with inflammation: Code(s): I83.12 - Varicose veins of left lower extremity with inflammation Category: Medical Plan: In short patient does have significant swelling of the left lower extremity. I would like to wait until the acute DVT as settled down and possibly recannulized. He is currently being maintained on Eliquis. I will schedule him for left lower extremity venous insufficiency testing in approximately 6 months time. Once we are able to obtain that we will follow up with him. In the interim would recommend conservative measures including compression, elevation, exercise. Thank you for allowing us to assist in his care. Orders: Orders US venous duplex LE LT 6 Months I83.12 - Varicose veins of left lower extremity with inflammation Coding Level of Care Code Est Pt Level 4 (58324) Diagnoses Varicose veins of left lower extremity with inflammation I83.12
[2024-06-29 09:01] VITALS: BMI 36.2
== END 2024-06-29 09:26 | disposition home or self-care (01) ==
PROVIDERS: PCP Internal Medicine; Visit Provider Surgery Vascular Surgery
DX: I83.12 Varicose veins of left lower extremity with inflammation (principal)
CPT/HCPCS: 99214

== ENCOUNTER → 2024-06-29 08:58 | Outpatient (BNVA) | payer MEDICARE, SELFPAY | PROVIDERS: PCP Internal Medicine; Visit Provider Surgery Vascular Surgery | DX: I83.12 Varicose veins of left lower extremity with inflammation (principal); I82.502 Chronic embolism and thrombosis of unspecified deep veins of left lower extremity; Z79.01 Long term (current) use of anticoagulants | CPT/HCPCS: 99212 ==

== ENCOUNTER 2024-07-31 13:06 | Outpatient (AMB) | payer MEDICARE, SELFPAY ==
--- NOTE | 2024-07-31 13:22 | A.OFFPC_ITS ---
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 Accompanied by: Spouse Allergies atorvastatin [From LIPITOR] Adverse Reaction (Severe, Verified 07/31/24 13:47) transaminitis Medication List - Last Reconciled 07/31/24 by Lara Lobo MD apixaban (Eliquis) 5 mg PO BID azelastine 1 spray intranasal BEDTIME 30 days azelastine 1 spray intranasal BID 30 days blood sugar diagnostic (3 Four 5 [employer]uch Ultra Test strips) Use 1 test strips once a day blood-glucose meter (3 Four 5 [employer]uch UltraMini kit) As directed blood-glucose meter (3 Four 5 [employer] Ultra2 Meter) As directed coenzyme Q10 (CoQ-10) 100 mg PO DAILY hydrochlorothiazide 25 mg PO QAM lancets (3 Four 5 [employer]uch Delica Plus Lancet) Use 1 lancet once a day lancets (3 Four 5 [employer]uch UltraSoft Lancets) Use 1 lancet once a day lovastatin 80 mg (2 x 40 mg) PO DAILY 90 days metformin 500 mg PO DAILY 90 days [id number]-zhr-estbx-S1-zanlleg-dcyqas [id number] mcg (Centrum Silver Men) 1 tab PO DAILY vhscseid-cwll-rjrtl-oreg-capry 100 mg-150 mg- 50 mg-150 mg 1 cap PO DAILY Tobacco use date assessed: 11/11/23 Fall risk assessment: No Falls in past year Last assessed Fall Risk: 07/31/24 Dental Screening Dental Screen Date: 07/31/24 Did you have a dental visit in the last 12 months?: No Did you have a dental problem in the last 6 months where you did not have access to dental care?: No Was dental information given to patient?: Patient has dentist HPI HPI Comments History of Present Illness Details The patient is a 68-year-old male presenting with management concerns related to an active blood clot in the leg and the need for a vascular surgery referral. The patient has been diagnosed with atrial fibrillation for which he takes Eliquis. Previous evaluation indicated the presence of a blood clot in the leg, which has necessitated ongoing management. The patient reports dissatisfaction with the current vascular surgeon and requests a new referral. A colonoscopy performed last year identified hyperplastic colon polyps, with the next surveillance scheduled in 10 years. The patient also reports a complete colonoscopy history but cannot recall the specifics of the results. Additionally, the patient requires a refill of Lovastatin for hyperlipidemia. The patient is concerned about managing anticoagulation given the existing blood clot and reports occasional varicosities and swelling in the affected leg. He has a long history of tobacco use, smoking two cigars per day currently, which he attributes to increased stress. He is not ready to quit. He also has diabetes mellitus type 2 and his A1c is within goal. He has hypertension and blood pressure is also within goal. He is obese with a BMI of 35.4 and was advised to do diet and exercise to reach BMI goal less than 30. [facility] Medical History Mild major depression Arthritis History of blood transfusion PENG on CPAP Obesity (BMI 30-39.9) Obesity due to excess calories with serious comorbidity Shoulder pain Former smoker Obese Essential hypertension Diabetes mellitus type 2 in obese Mixed hyperlipidemia Surgical History H/O colonoscopy History of skin cancer S/P ureteral reimplantation Family History Father Lung cancer Mother Diabetes Hypertension Stroke Social History Housing: House Alcohol intake: former Patient Tobacco Use Status: Current everyday Tobacco user Tobacco use type: Cigarette Cigarettes Per Day: 2 e-Cigarette/Vaping Use: Never Used Second Hand Smoke Exposure: No Advance Directives Date on File: 06/17/20 service: No Current occupational status: unemployed Cognitive needs: No Hearing needs: Yes Vision needs: No Questionnaire Thrive Questionnaire Date Thrive assessed: 11/11/23 NYDIA-7 AMB Questionnaire NYDIA-7 Date NYDIA - 7 assessed: 11/11/23 Source: Developed by Drs. Chas Calderon, Maggie Miranda, Manohar Hollingsworth and colleagues, with an educational douglas from [employer]. Review of Systems Const All systems reviewed & are unremarkable except as noted in HPI and below Card Denies chest pain at rest, Denies chest pain with activity, Denies edema, Denies irregular heart rhythm, Denies claudication, Denies dyspnea, Denies dyspnea on exertion, Denies orthopnea, Denies paroxysmal nocturnal dyspnea and Denies slow heart rate Resp Denies cough, Denies dyspnea and Denies dyspnea on exertion GI Denies abdominal pain, Denies change in bowel habits, Denies excessive flatus, Denies nausea and Denies vomiting Neuro Denies behavioral changes and Denies lack of coordination Psych Denies behavioral changes Physical exam (Primary Care) Vital Signs: Last Vital Signs Pulse 76 07/31/24 13:23 BP 132/80 07/31/24 13:23 Pulse Ox 95 07/31/24 13:23 Oxygen Delivery Method Room Air 07/31/24 13:23 BMI result Body Mass Index 35.4 BMI Assessment/Plan discussion: High BMI High, discussed plan: lifestyle, weight reduction, dietary and physical activity Tobacco/Smoking Status: Tobacco use Status Tobacco use date assessed 11/11/23 07/31/24 13:25 Patient Tobacco Use Status Current everyday Tobacco 07/31/24 13:25 Tobacco use type Cigarette 07/31/24 13:25 e-Cigarette/Vaping Use Never Used 07/31/24 13:25 Are you ready to quit: No Tobacco cessation counseling provided: Yes Items discussed: Nicotine replacement and QuitWorks Relapse Prevention: discussed the importance of a supportive environment, discussed extending NRT, discussed negative mood or depression after quitting, weight gain after smoking is common and discussed dietary, exercise and/or lifestyle changes Number of minutes spent counselin CPT code: 48864 - 4-10 Minutes Thrive Assessment: Date of Thrive Assessment Date Thrive assessed 11/11/23 07/31/24 13:25 Resp Effort & Inspection: normal respiratory effort Auscultation: clear to auscultation bilaterally Cardio Jugular venous distension: no JVD Rate: regular rate Rhythm: regular rhythm Heart sounds: S1 normal heart sound present and S2 normal heart sound present Extrem General: Yes full ROM Results AMB Hemoglobin A1c AMB Hemoglobin A1c 5.6 % Last Edit by THUY Keys on 07/31/24 13:5 9 Results Reviewed Results Reviewed: Laboratory Last Values Hgb A1c (Clinic) 5.6 % (4.0-6.0) 07/31/24 13:21 Coding Level of Care Code Est Pt Level 4 (54789) Complex EM visit Add On G2211 Diagnoses 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 I82.512 Affected thrombotic vein of extremity: femoral Chronicity: chronic Essential hypertension I10 Diabetes mellitus type 2 in obese E11.69; E66.9 Mixed hyperlipidemia E78.2 Additional Codes Vital Signs *Quality* - CPT code: 47399 - 4-10 Minutes ([id number]) Time Spent (min) 22 Assessment & Plan Assessment & Plan (1) Left leg DVT: Code(s): I82.402 - Acute embolism and thrombosis of unspecified deep veins of left lower extremity Category: Medical Qualifiers: Affected thrombotic vein of extremity: femoral Chronicity: chronic Malcolm lified Code(s): I82.512 - Chronic embolism and thrombosis of left femoral vein Plan: Continue Eliquis. Referred to [facility] surgery at [facility] for 2nd opinion. (2) Essential hypertension: Code(s): I10 - Essential (primary) hypertension Category: Medical Plan: Continue hydrochlorothiazide. Blood pressure goal is equal or less than 130/80. (3) Diabetes mellitus type 2 in obese: Code(s): E11.69 - Type 2 diabetes mellitus with other specified complication; E66.9 - Obesity, unspecified Category: Medical Plan: Continue metformin. A1c goal is equal or less than 7%. (4) Mixed hyperlipidemia: Code(s): E78.2 - Mixed hyperlipidemia Category: Medical Plan: Continue statins. LDL goal is less than 70. Plan - Active Blood Clot: Referral to a new vascular surgeon for further evaluation and management of the blood clot, as well as the complications related to vasculature in the affected leg. - Hyperlipidemia: Refill prescription for Lovastatin; continue current dosage and commitment to lifestyle modifications. - Prostate Health: Schedule blood PSA testing in upcoming lab work. - Tobacco Use: Discuss cessation programs and resources available; offer support for smoking cessation. - Diabetes Management: Plan to repeat blood work, including cholesterol and A1c, during the next office visit in November. Patient was informed and verbally consented to the use of an ambient scribe for clinic note documentation during this visit. I discussed the need for further evaluation of the blood clot in the leg with the patient and agreed to arrange a referral to a different vascular surgeon for management. I explained the continuation of his current medications, specifically addressing the need to refill Lovastatin and the potential risks of not controlling hyperlipidemia. The patient?s tobacco use was addressed, and I provided information on cessation aids and support. We also talked about scheduling a PSA blood test to assess prostate health. I thoroughly discussed the plan to repeat comprehensive lab work including A1c and cholesterol during his upcoming November visit. Follow-up with a vascular specialist was highlighted as a critical step, and consent was confirmed for ailment management as discussed. Orders: Orders Lipid Panel 4 Months E78.5 - Hyperlipidemia, unspecified AMB Hemoglobin A1c Today E11.69 - Type 2 diabetes mellitus with other specified complication, E66.9 - Obesity, unspecified Microalbumin, Random (w Creat) 4 Months R80.9 - Proteinuria, unspecified PSA,Total (Free>4and<10) 4 Months R35.1 - Nocturia Comprehensive [place]. Panel Fast 4 Months E11.69 - Type 2 diabetes mellitus with other specified complication, E66.9 - Obesity, unspecified Referrals Vascular Surgery Referral I82.512 - Chronic embolism and thrombosis of left femoral vein Medications: Refilled lovastatin 80 mg (2 x 40 mg) PO DAILY 90 days 180 tabs 1RF E78.2 - Mixed hyperlipidemia Patient Instructions: - Proceed with the referral to the new vascular surgeon as discussed. - Obtain prescription refill for Lovastatin and continue as directed. - Continue monitoring blood sugar levels and engage in recommended diabetes management practices. - Consider smoking cessation resources, including available programs and nicotine replacement therapies. - Schedule PSA blood test as part of the upcoming blood work in November. - Attend the next office visit in November for repeat lab work, including A1c and cholesterol.
[2024-07-31 13:23] VITALS: BP 132/80; PULSE 76; O2SAT 95; BMI 35.4
== END 2024-07-31 14:06 | disposition home or self-care (01) ==
PROVIDERS: PCP Internal Medicine; Visit Provider Internal Medicine
DX: I82.512 Chronic embolism and thrombosis of left femoral vein (principal); E11.69 Type 2 diabetes mellitus with other specified complication; E66.9 Obesity, unspecified; Z68.35 Body mass index [BMI] 35.0-35.9, adult; I10 Essential (primary) hypertension; E78.2 Mixed hyperlipidemia

== ENCOUNTER → 2024-07-31 13:06 | Outpatient (BNVA) | payer MEDICARE, SELFPAY | PROVIDERS: PCP Internal Medicine; Visit Provider Internal Medicine | DX: I82.512 Chronic embolism and thrombosis of left femoral vein (principal); I10 Essential (primary) hypertension; E11.69 Type 2 diabetes mellitus with other specified complication; E66.9 Obesity, unspecified; E78.2 Mixed hyperlipidemia | CPT/HCPCS: 83036; 99212 ==

== ENCOUNTER 2024-11-21 07:09 | Outpatient (REF) | payer MEDICARE, SELFPAY ==
--- OUTSIDE RECORDS SUMMARY | 2024-11-21 07:12 | XMS_ITS ---
Author Organization [facility] Address [address] [place] [address] Care Team Providers Care Kiln Placer Name Role Phone Lynette HERNANDEZ, Lara Primary Care Provider Unavail able Adilene Ervin Unavailable [phone] Allergies No Known Allergies REASON FOR VISIT At Risk Footcare, Toe Irritation Medications Medication SIG (Take, Route, Frequency, Duration) Notes Start Date End Date Status metFORMIN HCl Active Lovastatin Active Extra Depth Orthopedic Shoes (1 Pair) with Customized Heat Molded Multidensity Innersoles (3 Pair) as directed Dx: NIDDM/Polyneuropathy (E11.42), Hammertoe Foot Deformity (M20.41,M20.42), Preulcerative Skin Lesion(s) (L85.1 09/01/2024 Active Eliquis Active Azelastine HCl Activ e Social History Tobacco Use: Social History Observation Description Date Details (start date - stop date) Current Smoker NA - NA Tobacco use other than smoking: Question Answer Notes Are you an other tobacco user? No Tobacco Control (Standard) Question Answer Notes Tobacco use: Current smoker AUDIT-C (Standard) Question Answer Notes Did you have a drink containing alcohol in the p ast year? No Points 0 Interpretation Negative Problems Problem Type SNOMED Code ICD Code Onset Dates Problem Status W/U Status Risk Notes Problem Polyneuropathy due to type 2 diabetes mellitus (598173733) Type 2 diabetes mellitus with diabetic polyneuropathy (E11.42) Active confirmed Problem Acquired hammer toe of right foot (4829806070897896 ) Other hammer toe(s) (acquired), right foot (M20.41) Active confirmed Problem Acquired hammer toe of left foot (4351660790298145 ) Other hammer toe(s) (acquired), left foot (M20.42) Active confirmed Vital Signs Height 5ft9in in 09/01/2024 Weight 242 lbs 09/01/2024 BMI 35.73 kg/m2 09/01/2024 Blood pressure systolic 121 mm Hg 09/01/20 24 Blood pressure diastolic 75 mm Hg 024 Encounters Encounter Location Date Provider Diagnosis [facility] [address] [address] 09/01/2024 Adilene Ervin Type 2 diabetes mellitus with diabetic polyneuropathy E11.42 ; Other hammer toe(s) (acquired), right foot M20.41 ; Tinea unguium B35.1 ; Other hammer toe(s) (acquired), left foot M20.42 ; Diabetic peripheral vascular disease E11.51 and Ingrown nail L60.0 Assessments Encounter Date Diagnosis (ICD Code) Assessment Notes Treatment Notes Treatment Clinical Notes Section Notes 09/01/2024 Type 2 diabetes mellitus with diabetic polyneuropathy (ICD-10 - E11.42) 09/01/2024 Other hammer toe(s) (acquired), right foot (ICD-10 - M20.41) Patient Educated with: DIABETIC FOOT CARE INSTRUCTIONS. pdf (DIABETIC FOOT CARE INSTRUCTIONS. pdf) 09/01/2024 Tinea unguium (ICD-10 - B35.1) 09/01/2024 Other hammer toe(s) (acquired), left foot (ICD-10 - M20.42) 09/01/2024 Diabetic peripheral vascular disease (ICD-10 - E11.51) 09/01/2024 Ingrown nail (ICD-10 - L60.0) Plan Of Treatment Medication Medication Name Sig Start Date Stop Date Notes Extra Depth Orthopedic Shoes (1 Pair) with Customized Heat Molded Multidensity Innersoles (3 Pair) as directed Dx: NIDDM/Polyneuropathy (E11.42), Hammertoe Foot Deformity (M20.41,M20.42), Preulcerative Skin Lesion(s) (L85.1 09/01/2024 Treatment Notes Assessment Notes Other hammer toe(s) (acquired), right fo ot Patient Educated with: DIABETIC FOOT CARE INSTRUCTIONS.pdf (DIABETIC FOOT CARE INSTRUCTIONS.pdf) Next Appt Details Follow Up: 3 Months, Reason: Provider Name:Adilene Lane Nayeli lane, 12/01/2024 09:00:00 AM, [address] [place] [address], [phone], Procedure Notes * Category Sub-Category Detail Notes Debride Nail 6-10 Nail debridement Due to the cl inical pathology outlined in the exam findings, performance of this nail treatment is medically necessary as its management by an unskilled/untrained nonprofessional would put this patients foot and overall health at risk. Therefore, debridement to affected nail(s), as described in exam ( TA, T1, T2, T3, T4, T5, T6, T7, T8, T9, ), was performed exclusively by the physician of record to reduce/remove overall nail length, girth, thickness, subungual debris, and necrotic tissue, by manual and/or electrical means through the use of a nail nipper and/or dremel-type billet grinder, to a more viable healthy nail plate or bed tissue 6-10 nails in total. Silver nitrate was used for any petechial bleeding as necessary. Definitive antifungal treatment options, both pharmaceutical and surgical, have been reviewed and discussed with the patient. The patient solely prefers the use of intermittent/as needed professional debridement services for their nail condition and understands the need for additional periodic treatments to maintain effectiveness in symptomatic relief - 48931 Keratoma Treatment Parring or Cutting o f Benign Hyperkeratotic Lesion(s) (-56) 2-4 Lesions - Due to the at risk nature of the patients medical condition as documented in the exam findings, performance of this keratoderma treatment is medically necessary as its management by an unskilled/untrained nonprofessional would put this patients foot and overall health at risk. Therefore, the benign hyperkeratotic lesions, ( 3) in total, locations as stated and described in the exam ( Plantar T5, Heels B/L, were pared, and/or cut utilizing a sterile 15 blade, tissue nippers, and/or power dremel instrumentation by the physician of record - 30032 Progress Notes * Peter BARRIOS: 6 (68 yo M)Acc No.[id number]:09/01/2024 Progress Notes Patient:?Peter BARRIOS Number:[id number] Provider:?Adilene Ervin DPM :1955???Age:68 Y???Sex:Male Saran e:09/01/2024 Address:[address] [place], [place] [id number] Pcp:Lara Ojeda MD Subjective: * Chief Complaints: * ???At Risk FootcareToe Irrit ation * HPI: ???At Risk footcare:?Pt States Last PCP Visit:?Date?07/04/2024 ???Toe pain:?Location:?B/L feet.?Duration:?several years.?Course:?worse.?Aggravated by:?shoes, any pressure.?Treatments:?change in shoes.?Ingrown toenail:?Location:?Great toe, Both feet.? * ROS:?HEENTM:?Glasses/contacts?admits.?Hard of hearing ?admits.?Musculoskeletal:?Back Pain?admits.?Generalized aches and pains?admits.?Integ.:?Ingrown nails?admits.? * Medical History:? * Surgical History:?Denies Pas t Surgical History * Hospitalization/Major Diagno stic Procedure:?Denies Past Hospitalization * Family History:?Mother: dece ased, diagnosed with Other malignant neoplasm of unspecified site, Diabetic - NIDDM, Unspecified essential hypertension, Unspecified heart disease, Unspecified cerebral artery occlusion with cerebral infarction.?Father: .?Maternal Grand Father: diagnosed with Unspecified essential hypertension.? * Social History:?Tobacco Use:?Tobacco use other than smoking?Are you an other tobacco user??No ?Tobacco Control (Standard)?Tobacco use:?Current smoker ???Drugs/Alcohol:?Drugs?Have you used drugs other than those for medical reasons in the past 12 months??No ???Miscellaneous:?Caffeine: yes. ?Exercise: no. ?Marital status: . ???Drug/Alcohol:?AUDIT-C (Standard)?Did you have a drink containing alcohol in the past year??No ?Points?0 ?Interpretation?Negative * Medications:?TakingmetFORMIN HCl Lovastatin Eliquis Azelastine HCl Medication List reviewed and reconciled with the patientTaking metFORMIN HCl Taking Lovastatin Taking Eliquis Taking Azelastine HCl Medication List reviewed and reconciled with the patient * Allergies:?N.K.D.A.yes[Aller gies Verified] Objective: * Vitals:?Ht: 5ft9in, Wt:242, BMI:35.73, Shoe size: 12, BP:121/75mm Hg, BS: 104, Ht-cm: 175.26 cm, Wt-k.77 kg. * ???Past Orders: ???Lab:HEMOGLOBIN A1C (GLYCO HEMOGLOBIN) (Order Date - 06/13/2024) (Collection Date & Time - 06/13/2024 08:27 AM) ? Value Reference Range ?TOTAL HEMOGLOBIN (HGBA1C) 4.9 * Examination: ???Ophthalmology Referral: ?DIABETES EYE EXAM?Procedure Performed:?Yes ?Date of Exam Performed?04/13/2024 ?Findings of Diabetic Eye Exam:?no retinopathy?Neurological: ?SENSORY:? Neurological exam demonstrates, reduced light touch sensation, reduced sharp/dull pin prick discrimination , B/L, 5.07 monofilament test performed at plantar aspects of 5 varied sites per foot shows sensation, reduced , B/L,Pt relates,?numbness,?paresthesia,B/L.?Nails: ?NAILS are:?Elongated, overgrown, dystrophic, lytic, greater than 3mm thick, discolored and friable with crumbly malodorous subungual debris, with dull to no pain on palpation due to neuropathy, TA, T1, T2, T3, T4, T5, T6, T7, T8, T9.?Dermatologic: ?SKIN FINDINGS:?Skin exam reveals Keratotic lesion(s) located at, Medial plantar, T5, Plantar Heel(s), B/L.?Vascular: ?DP PULSES (B):?0/4, LEFT, 1/4, RIGHT.?PT PULSES (B):?0/4,?LEFT,?1/4,?RIGHT.?CAPILLARY FILL TIME:?4 secs. per digit.?TROPHIC CONDITION-TEXTURE/ELASTICITY/TURGOR/HAIR GROWTH (B):?with sparse to absent hair growth, B/L.?TEMPERTURE GRADIENT (C):?decreased, cool to cool, proximal to distal, B/L.?PIGMENTATION:?pale, B/L.?Orthopedic: ?MUSCLE STRENGTH:?5/5 all groups in a symmetrical fashion, B/L.?DIGITAL DEFORMITIES:?Digital contracture, PIPJ, 2-5 B/L, incompl-reducible to push-up test, no over, nor underlapping,?there is?evidence of shoe producing skin irritation.?FOOTWEAR:?worn, non-supportive, shoe gear properties exacerbate patient's foot/toe deformity.?General Examination: ?GENERAL APPEARANCE:?Reveals a pleasant, alert, well nourished, well- developed, well hydrated individual, who demonstrates proper attention to hygiene/body habitus, and is in no acute distress, Pt serves as own historian for office visit today.?ORIENTED:?person, place, and time.?FOOT EXAM:?Lower Extremity Neurological Exam performed:?Yes ?Footwear Evaluation?Footwear Evaluation performed:?Yes?Ingrown Nail: ?INSPECTION:?Reveals nail incurvation, pain on palpation, groove hypertrophy, Lateral nail border, TA, T5.? Assessment: * Assessment: 1.?Other hammer toe(s) (acqu ired), right foot - M20.41 (Primary)???Specify :Chronic problem, Worse (4),Rx Management (4)???2.?Type 2 diabetes mellitus with diabetic polyneuropathy - E11.42???3.?Tinea unguium - B35.1???4.?Other hammer toe(s) (acquired), left foot - M20.42???Specify :Chronic problem, Worse (4),Rx Management (4)???5.?Diabetic peripheral vascular disease - E11.51???6.?Ingrown nail - L60.0??? Plan: * Treatment: * Procedures:?Debride Nail 6-10:?Nail debridement?Due to the clinical pathology outlined in the exam findings, performance of this nail treatment is medically necessary as its management by an unskilled/untrained nonprofessional would put this patients foot and overall health at risk. Therefore, debridement to affected nail(s), as described in exam ( TA, T1, T2, T3, T4, T5, T6, T7, T8, T9, ), was performed exclusively by the physician of record to reduce/remove overall nail length, girth, thickness, subungual debris, and necrotic tissue, by manual and/or electrical means through the use of a nail nipper and/or dremel-type billet grinder, to a more viable healthy nail plate or bed tissue 6- 10 nails in total. Silver nitrate was used for any petechial bleeding as necessary. Definitive antifungal treatment options, both pharmaceutical and surgical, have been reviewed and discussed with the patient. The patient solely prefers the use of intermittent/as needed professional debridement services for their nail condition and understands the need for additional periodic treatments to maintain effectiveness in symptomatic relief - 70313.?Keratoma Treatment:?Parring or Cutting of Benign Hyperkeratotic Lesion(s)?(-56) 2-4 Lesions - Due to the at risk nature of the patients medical condition as documented in the exam findings, performance of this keratoderma treatment is medically necessary as its management by an unskilled/untrained nonprofessional would put this patients foot and overall health at risk. Therefore, the benign hyperkeratotic lesions, ( 3) in total, locations as stated and described in the exam ( Plantar T5, Heels B/L, were pared, and/or cut utilizing a sterile 15 blade, tissue nippers, and/or power dremel instrumentation by the physician of record - 74008.? * Procedure Codes:?97281 DEBRI DE NAIL, 6 OR MORE, Modifiers: XS 53893 TRIM SKIN LESIONS, 2 TO 4, Modifiers: XS * Preventive Medicine:? ??Counseling:?Discussion:?-04: Office or other outpatient visit for the evaluation and management of a new patient, which required a medically appropriate history and/or examination and MODERATE level of DECISION MAKING for: 1 OR MORE CHRONIC PROBLEM(S) THATS WORSENING, 2 STABLE CHRONIC PROBLEMS, A NEWLY DIAGNOSED PROBLEM WITH UNCERTAIN PROGNOSIS, AN ACUTE COMPLICATED INJURY WITH MULTIPLE TREATMENT OPTIONS, OR AN ACUTE PROBLEM WITH ACCOMPANYING SYSTEMIC SYMPTOMS, THAT POSE(S) A MODERATE RISK OF MORBIDITY. THIS CONDITION MAY ALSO INCLUDE RX DRUG MANAGEMENT, OR A DECISON FOR MINOR SURGERY. The visit on the day of the encounter encompassed interpreting the data and educating the patient as to the nature of their condition, treatment options available according to their individual PMH, meds, allergies, and overall health/living conditions, as well as any potential risks or complications that may occur from a failure to adhere to, and participate in, the recommended course of therapy. The discussion included a complete verbal, and/or written explanation of the examination results, any x-rays taken, the proposed diagnosis, and outline of the treatment plan. A schedule for future care needs was also explained. The patient verbalized an understanding of the instructions at this time and agreed to be an active participant in their treatment. If the patient should think of any questions or concerns after the visit, I have encouraged the patient to call the office.?Abscess/Paraonychia/Ingrown Nails:?We discussed the possible etiologies (genetic, improper nail care, shoe gear, nail trauma) which may lead to ingrown nails and/or paronychial infections. We discussed and reviewed palliative/nonsurgical/deferring definitive treatment (vs) undergoing the treatment procedures of nail avulsion(s) or PNA, which may prevent recurrence and give more lasting results. The possible risks/complications such as worsened condition/delayed healing/nonhealing/failure/recurrence/infection, the potential benefits/advantages of decreased pain/deformity, as well as alterative treatment options including applying nail softening agents/nail groove packing were discussed. No guarantees were given regarding any outcome for any procedure. The patient was educated in the length of time for the affected nail to regrow once completely healed from a nail avulsion procedure. Once the condition has completely healed, the patient was consulted on proper nail care. Patient questions such as details of each procedure, varying time to heal, activity post procedure, and shoe gear were discussed and the answers were verbally confirmed fully understood, Pt defers PNA or NA, Nails debrided with good relief of pain, pt to monitor for any signs of infection, pt should soak in warm water and epsom salts and apply antibotic ointment as needed, call with any issues.?Diabetic Footcare:?Diabetic footcare is reviewed with the patient. Handout is dispensed, The patient was advised against future self nail/callus care due to inherent risks for infection, loss of limb/life given diabetes, neuropathy, peripheral vascular disease.?Digital Surgery:?Digital surgery was discussed with the patient, We elected to try conservative treatment at the present time, due to the patients medical history and increased asssociated post-operative risks.?Digital Treatment:?HT- I explained to the patient the possible etiologies of Hammertoes, including genetics/foot type/shoegear/activity level/exercise routine and the risks/benefits of all the different treatment options for their pain including: No treatment at all, Rest, Ice, New/supportive/wider/deeper Shoegear, Digital Padding/Strapping/Taping/Bracing/Gel protective sleeves, Foot/Ankle AFO Bracing, Stretching exercises, Deep Tissue Massage, Arch support/shoe inserts with splay metatarsal padding, and Custom orthoses. I insisted that any digital devices be removed daily and not worn overnight for safety. The patient is to carefully examine the toes daily for any skin irritation while using any splinting or padding device. The advantages and disadvantages of each option were discussed and the patients questions re: shoegear, padding, custom vs prefabricated inserts, activity level, and consistency in home treatment regimens for optimal success were answered to their verbally confirmed satisfaction.?Shoe Gear Counseling:?SHOE Rx - The patient was counseled in great detail on their muscoloskeletal foot and toe deformities which coincided with the dermatological presentations visualized on exam. We discussed how their deformities put the integrity of their feet at risk for potential pedal complications which makes the accomidative diabetic shoes and cutomizable inserts medically necessary. We discussed the different shoe and insert treatment types and options, as well as the important advantages for adhering to regularly wearing these accomidative devices daily. The patient was made aware of the fact that a failure to abide by these recommedations may be deleterious to their foot health as they are able to prevent many pedal complications such as skin irritation, skin ulceration, infection, and even loss of toe/foot/leg/or life. Time was also spent with the patient dispensing and discussing proper diabetic footcare techniques including daily skin moisturization, daily foot inspection for any interruption in skin integrity including open lesions, or sign of infection such as redness/malodor/drainage/swelling. Also discussed and recommended were procedures regarding daily shoe inspection for the presence of internal foreign bodies as well as any visualized irregular shoe or insert wear. Patient questions re: shoes, inserts, and self foot inspections were answered to their satisfaction as the patient verbally confirmed a full understanding of the above information. A Rx for Extra Depth Orthopedic Shoes with 3 pair of custom heat-molded inserts was dispensed.? * Follow Up:?3 Months * Images: * Sign off status: Completed true * Provider:?Adilene Ervin, DPM Date:? Generated for Jerrell magallanes/Michelle/Adrienne on:?11/21/2024 07:12 AM EDT History and Physical Notes * HPI (History of Present Illness) Category Sub-Category Detail Notes Category Not es Toe pain Location: B/L feet Duration: several years Course: worse Aggravated by: shoes, any pressure Treatments: change in shoes Ingrown toenail Location: Great toe, Both feet At Risk footcare Pt States Last PCP Visit: Date: Examination Category Sub-Category Detail Notes Category Not es Ingrown Nail INSPECTION: Reveals nail inc urvation, pain on palpation, groove hypertrophy, Lateral nail border, TA, T5 Neurological SENSORY: Neurological exa m demonstrates, reduced light touch sensation, reduced sharp/dull pin prick discrimination , B/L, 5.07 monofilament test performed at plantar aspects of 5 varied sites per foot shows sensation, reduced , B/L,Pt relates, numbness, paresthesia,B/L Dermatologic SKIN FINDINGS: Skin exam reveal s Keratotic lesion(s) located at, Medial plantar, T5, Plantar Heel(s), B/L Orthopedic FOOTWEAR: worn, non-suppor tive, shoe gear properties exacerbate patient's foot/toe deformity DIGITAL DEFORMITIES: Digital contracture , PIPJ, 2-5 B/L, incompl-reducible to push-up test, no over, nor underlapping, there is evidence of shoe producing skin irritation MUSCLE STRENGTH: 5/5 all groups in a symmetrical fashion, B/L General Examination GENERAL APPEARANCE: Reveals a pleasant, alert, well nourished, well-developed, well hydrated individual, who demonstrates proper attention to hygiene/body habitus, and is in no acute distress, Pt serves as own historian for office visit today FOOT EXAM: Lower Extremity Neurological Exa m performed:: Yes ORIENTED: person, place, and t lupe Footwear Evaluation Footwear Evaluation performe d:: Yes Ophthalmology Referral DIABETES EYE EXAM Procedure Perform ed:: Yes ?Date of Exam Performed: 04/13/2024 Findings of Diabetic Eye Exam:: no retin opathy Vascular DP PULSES (B): 0/4, LEFT, 1/4, RIGHT PT PULSES (B): 0/4, LEFT, 1/4, RIGH T CAPILLARY FILL TIME: 4 secs. per digit TEMPERTURE GRADIENT (C): decreased, cool to cool, proximal to distal, B/L TROPHIC CONDITION-TEXTURE/ELASTICITY/TURGOR/HAIR GROWTH (B): with sparse to absent hair growth, B/L PIGMENTATION: pale, B/L Nails NAILS are: Elongated, overg rown, dystrophic, lytic, greater than 3mm thick, discolored and friable with crumbly malodorous subungual debris, with dull to no pain on palpation due to neuropathy, TA, T1, T2, T3, T4, T5, T6, T7, T8, T9
--- OUTSIDE RECORDS SUMMARY | 2024-11-21 07:13 | XMS_ITS | Clinical Summary ---
Author Organization [employer] Address [address] [facility] [address] [place] [address] Care Team Providers Care Paint Pourer Name Role Phone Unavailable Primary Care Provider Unavailabl e Immunizations Name Administration Dates Next Due Influenza, seasonal, injectable, preservative fr ee 06/05/2024 Social History Tobacco Use Types Packs/Day Years Used Date Smoking Tobacco: Never Assessed Sex and Gender Information Value Date Recorded Sex Assigned at Male 06/05/2024 3:25 PM EDT Legal Sex Male 3:24 PM EDT Gender Identity Male 06/05/2024 3:25 PM EDT Sexual Orientation Straight 06/05/2024 3: 25 PM EDT Plan of Treatment Health Maintenance Due Date Last Done Comments CT Colonography 1955 Colonoscopy 1955 Colorectal Cancer Screening 1955 Depression Screening 1955 FIT DNA/Cologuard 1955 FIT 1955 FOBT 1955 Lipid Panel 1955 SDOH Screening 1955 Sigmoidoscopy 1955 Alcohol/Substance Use Screening 1967 Tobacco Screening 1967 Hepatitis C Screening 1973 DTaP/Tdap/Td Vaccines (1 - Tdap) 1974 Pneumococcal Vaccine: 50+ Ye ars (1 of 1 - PCV) 2005 Zoster Vaccines (1 of 2) 2005 COVID-19 Vaccine ( - 2023-2 5 season) 2024 RSV Patients and Pa tients Aged 60 years or older (1 - 1-dose 75+ series) 2030 Influenza Vaccine Completed 06/05/2024 HIB Vaccines Aged Out No longer eligi ble based on patient's age to complete this topic HPV Vaccines Aged Out No longer eligi ble based on patient's age to complete this topic Hepatitis A Vaccines Aged Out No long er eligible based on patient's age to complete this topic Hepatitis B Vaccines Aged Out No long er eligible based on patient's age to complete this topic IPV Vaccines Aged Out No longer eligi ble based on patient's age to complete this topic Meningococcal Vaccine Aged Out No xenia guilherme eligible based on patient's age to complete this topic RSV under 20 months Aged Out No longe r eligible based on patient's age to complete this topic Rotavirus Vaccines Aged Out No longer eligible based on patient's age to complete this topic Insurance [employer]AC[employer] PPO
--- OUTSIDE RECORDS SUMMARY | 2024-11-21 07:13 | XMS_ITS ---
Author Organization [facility] Address [address] [place] [id number] Care Team Providers Care Buckle Strap Drum Operator Name Role Phone Lara Ojeda MD Primary Care Provider Unavail able Adilene Ervin [phone] REASON FOR VISIT SURFACE MINER [facility] Entered Encounters Encounter Location Date Provider Diagnosis [address] [address] 08/15/2024 Adilene Ervin Plan Of Treatment Next Appt Details Provider Name:Adilene lane, 12/01/2024 09:00:00 AM, [address] [place] [address], [phone], Progress Notes * Peter BARRIOSDOB:1955 (68 yo M)Acc No.[id number]:08/15/2024 Patient:?Peter BARRIOS :1955???Age:68 Y???Sex:Male Address:[address] [place] [address] * true * Date:? Generated for Isabeli elpidio/Michelle/eTransmitting on:?11/21/2024 07:12 AM EDT
--- OUTSIDE RECORDS SUMMARY | 2024-11-21 07:13 | XMS_ITS | Patient Health Record ---
Author Organization [facility] luz Rexford Address [address] [place] [address] Care Team Providers Care Label Pinker Name Role Phone Lynette HERNANDEZ, Lara Primary Care Provider Unavail able Adilene Ervin Unavailable [phone] Allergies No Known Allergies Results Component Value Reference Range Notes HEMOGLOBIN A1C (GLYCOHEMOGLO BIN) Reviewed date:09/01/2024 08:28:07 AM Interpretation: Performing Lab: Notes/Report: TOTAL HEMOGLOBIN (HGBA1C) 4.9 Reason For Referral No Information Medications Medication SIG (Take, Route, Frequency, Duration) [...] Problem Status W/U Status Risk Notes Problem Acquired hammer toe of right foot (6437180058894708 ) Other hammer toe(s) (acquired), right foot (M20.41) Active confirmed Problem Acquired hammer toe of left foot (9655868822530443 ) Other hammer toe(s) (acquired), left foot (M20.42) Active confirmed Problem Polyneuropathy due to type 2 diabetes mellitus (872057790) Type 2 diabetes mellitus with diabetic polyneuropathy (E11.42) Active confirmed Vital Signs Blood pressure diastolic 75 mm Hg 09/01/2024 Height 5ft9in in 09/01/2024 Blood pressure systolic 121 mm Hg 09/01/2024 Weight 242 lbs 09/01/2024 BMI 35.73 kg/m2 09/01/2024 Encounters Encounter Location Date Provider [facility] [address] 09/01/2024 Adilene Ervin Type 2 diabetes mellitus with diabetic polyneuropathy E11.42 ; Other hammer toe(s) (acquired), right foot M20.41 ; Tinea unguium B35.1 ; Other hammer toe(s) (acquired), left foot M20.42 ; Diabetic peripheral vascular disease E11.51 and Ingrown nail L60.[address] [facility] [address] 08/15/2024 Adilene Ervin Assessments Encounter Date Diagnosis (ICD Code) Assessment Notes Treatment Notes Treatment Clinical Notes Section Notes 09/01/2024 Other hammer toe(s) (acquired), right foot (ICD-10 - M20.41) Patient Educated with: DIABETIC FOOT CARE INSTRUCTIONS. pdf (DIABETIC FOOT CARE INSTRUCTIONS. pdf) 09/01/2024 Type 2 diabetes mellitus with diabetic polyneuropathy (ICD-10 - E11.42) 09/01/2024 Tinea unguium (ICD-10 - B35.1) 09/01/2024 Other hammer toe(s) (acquired), left foot (ICD-10 - M20.42) 09/01/2024 Diabetic peripheral vascular disease (ICD-10 - E11.51) 09/01/2024 Ingrown nail (ICD-10 - L60.0) Plan Of Treatment Next Appt Details Provider Name:Adilene lane, 12/01/2024 09:00:00 AM, [address] [place] [address], [phone], Insurance Providers Payer Name Payer Address Payer Phone Subscriber Number Group Number Insured Name Patient Relationship to Insured Coverage Start Date Coverage End Date [facility] 65 Medicare Preferred [address] [place] [address] [phone] [id number] Peter Gates Self - patient is the insured Medical (General) History Medical History History ICD Code Arthritis Back,Hip,and Knee pain CAD (Cholesterol) covid-19 type II diabetes High Blood Pressure
[2024-11-21 10:38] LABS: Alanine Aminotransferase 15 U/L (0-40); Albumin Level 3.9 g/dL (3.5-5.0); Alkaline Phosphatase 42 U/L (39-117); Anion Gap 12 (12-20); Aspartate Amino Transferase 18 U/L (5-37); Bilirubin Total 0.7 mg/dL (0.0-1.0); Blood Urea Nitrogen 16 mg/dL (9-16); Calcium 8.9 mg/dL (8.4-10.2); Carbon Dioxide 29 mmol/L (22-29); Chloride 103 mmol/L (96-108); Cholesterol 188 mg/dL (<200); Estimated Glomerular Filt Rate > 60; Glucose Fasting 102 mg/dL (60-99); HDL Cholesterol 38 mg/dL (>40); LDL Cholesterol Calculated 109 mg/dL (<100); Potassium 3.8 mmol/L (3.3-5.1); Sodium 140 mmol/L (135-145); Triglycerides 209 mg/dL (<150)
[2024-11-21 10:44] LABS: Creatinine Urine 154.36 mg/dL; Microalbum/Creatinine Ratio Ur 7.7 ug/mg cr (<30)
[2024-11-21 11:01] LABS: PSA,Total (Free>4and<10) 2.59 ng/mL (0.00-4.00)
== END 2024-11-21 07:10 | disposition home or self-care (01) ==
LOC: HO.HMGCLDS 07:09
PROVIDERS: PCP Internal Medicine; Visit Provider Internal Medicine
DX: E11.69 Type 2 diabetes mellitus with other specified complication (principal); E78.5 Hyperlipidemia, unspecified; E66.9 Obesity, unspecified; R80.9 Proteinuria, unspecified; R35.1 Nocturia; Z12.5 Encounter for screening for malignant neoplasm of prostate
CPT/HCPCS: 36415; 80053; 80061; 82043; 82570; 84153

== ENCOUNTER 2024-11-22 10:01 | Outpatient (AMB) | payer MEDICARE, SELFPAY ==
[2024-11-22 10:13] VITALS: BP 125/85; PULSE 80; O2SAT 96; BMI 36.0
--- NOTE | 2024-11-22 10:13 | MHC.OFFVIS ---
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 Required: No Allergies atorvastatin [From LIPITOR] Adverse Reaction (Severe, Verified 11/22/24 10:15) transaminitis Medication List - Last Reconciled 11/22/24 by Mikayla Lobo MD apixaban (Eliquis) 5 mg PO BID azelastine 1 spray intranasal BID 30 days blood sugar diagnostic (AdTribuch Ultra Test strips) Use 1 test strips once a day blood-glucose meter (AdTribuch UltraMini kit) As directed blood-glucose meter ([place] Harbour SeafoodTouch Ultra2 Meter) As directed coenzyme Q10 (CoQ-10) 100 mg PO DAILY hydrochlorothiazide 25 mg PO QAM lancets (AdTribuch UltraSoft Lancets) Use 1 lancet once a day lancets (AdTribuch Delica Plus Lancet) Use 1 lancet once a day lovastatin 80 mg (2 x 40 mg) PO DAILY 90 days metformin 500 mg PO DAILY 90 days ca-lah-yhgka-Q7-yblfsvx-lxjord 744-32-315-300 mcg (Centrum Silver Men) 1 tab PO DAILY pmeeoueb-dcfa-gzkaj-oreg-capry 100 mg-150 mg- 50 mg-150 mg 1 cap PO DAILY Do you need a note to return to daycare/school/sports/work: No HPI HPI Obstructive sleep apnea: Details: SAYDA MILLS IS A 69-YEAR-OLD HERE TODAY FOR SIX-MONTH FOLLOW-UP FOR HIS OBSTRUCTIVE SLEEP APNEA HE REPORTS HE HAS BEEN FEELING WELL AND HAS NOT HAD ANY UPPER RESPIRATORY ILLNESSES HE STATES HE HAS BEEN USING HIS CPAP, HAS BEEN SLEEPING WELL, AND DENIES ANY DAYTIME SLEEPINESS. HE DOES NOT USE THE CPAP FOR MORE THAN 4 HOURS SOME NIGHTS BECAUSE OF HIS ARTHRITIS PAIN PATIENT USES A NASAL MASK BUT DENIES ANY ISSUES WITH THE MASK OR CPAP MACHINE HE IS STARTING TO HAVE SOME NASAL CONGESTION DUE TO SEASONAL ALLERGIES [facility] Medical History Mild major depression Arthritis History of blood transfusion PENG on CPAP Obesity (BMI 30-39.9) Obesity due to excess calories with serious comorbidity Shoulder pain Former smoker Obese Essential hypertension Diabetes mellitus type 2 in obese Mixed hyperlipidemia Surgical History H/O colonoscopy History of skin cancer S/P ureteral reimplantation Family History Father Lung cancer Mother Diabetes Hypertension Stroke Social History Housing: House Alcohol intake: former Patient Tobacco Use Status: Current everyday Tobacco user Tobacco use type: Cigarette and Cigar Cigarettes Per Day: 2 e-Cigarette/Vaping Use: Never Used Second Hand Smoke Exposure: No Advance Directives Date on File: 06/17/20 service: No Current occupational status: unemployed Cognitive needs: No Hearing needs: Yes Vision needs: No Review of Systems Const All systems reviewed & are unremarkable except as noted in HPI and below Eyes Reports no additional complaints, Denies change in vision and Denies other visual disturbances ENT Reports nasal congestion (MILD INTERMITTENT) Card Denies chest pain at rest, Denies chest pain with activity, Denies edema, Denies irregular heart rhythm, Denies claudication, Denies dyspnea, Denies dyspnea on exertion, Denies orthopnea, Denies paroxysmal nocturnal dyspnea and Denies slow heart rate Resp Denies cough, Denies dyspnea, Denies dyspnea on exertion and Denies wheezing GI Denies abdominal pain, Denies change in bowel habits, Denies excessive flatus, Denies nausea and Denies vomiting Denies urinary hesitancy, Denies urinary incontinence and Denies urinary urgency Musc Denies abnormal gait, Denies atrophy, Denies deformity and Denies limited range of motion Skin/Breast Denies bleeding lesions, Denies changing lesions and Denies rash Neuro Denies abnormal gait and Denies lack of coordination Psych Reports no additional complaints Aller/Immun Denies wheezing Physical Exam Vital Signs: Last Vital Signs Pulse 80 11/22/24 10:13 BP 125/85 11/22/24 10:13 Pulse Ox 96 11/22/24 10:13 Oxygen Delivery Method Room Air 11/22/24 10:13 BMI result Body Mass Index 36.0 Const General: healthy appearing (Except for being overweight) and comfortable Orientation/consciousness: patient oriented x3 HEENT Head: Yes normal to inspection General nose exam: No nasal polyps present and No nasal discharge present Face and sinus: Yes sinuses nontender Mouth: oropharynx normal Throat: Yes posterior oropharynx normal Eyes General: appearance normal, both eyes and all related structures Neck Neck: Yes normal visual inspection, Yes no lymphadenopathy, Yes trachea midline and Yes no JVD Thyroid: Thyroid normal Chest Chest palpation & inspection: normal inspection of the chest, normal palpation of entire chest wall and no tenderness Resp Effort & Inspection: normal respiratory effort Auscultation: clear to auscultation bilaterally, no crackles and no wheezes Cardio Palpation: normal PMI Rate: regular rate Rhythm: regular rhythm Heart sounds: no gallops and no murmurs Peripheral pulses: Peripheral pulses 2+ throughout GI Palpation (GI): Soft to palpation, Tenderness to palpation present (GI), No hepatosplenomegaly present and Palpable mass present Auscultation: normal bowel sounds Back/Spine/Pelvis Thoracic/Lumbar Spine: thoracic and lumbar spine normal to inspection Skin General skin exam: no rashes or lesions noted Neuro General: patient oriented x3 and no focal motor deficits Cranial nerves: Yes CN's II-XII intact bilaterally Extrem General: Yes normal to inspection, Yes no clubbing, cyanosis or edema and Yes no calf tenderness Psych Speech and movement: Normal speech and movement present Results Reviewed Results Reviewed: COMPLIANCE REPORT FOR THE LAST 30 NIGHTS OF CPAP USE WAS REVIEWED PATIENT HAS USED FOR 30/30 NIGHTS AVERAGE USAGE IS 4 HOURS PER NIGHT THERE IS SOME AIR LEAK NOTED BUT RESIDUAL AHI IS BUT RESIDUAL AHI IS ONLY 0.7 Assessment & Plan Assessment & Plan (1) PENG on CPAP: Comment: Known to have obstructive sleep apnea since 2014, after a home sleep study which showed obstructive sleep apnea. Has been compliant and benefiting. He has been using CPAP all these years very regularly. He did get new CPAP which is working fine. Usage is somewhat less than optimal. Code(s): G47.33 - Obstructive sleep apnea (adult) (pediatric); Z99.89 - Dependence on other enabling machines and devices Category: Medical Plan: COMMENDED FOR GOOD COMPLIANCE WITH CPAP USE AND ENCOURAGED TO USE MORE THAN 4 HOURS EACH NIGHT (2) Obesity (BMI 30-39.9): Comment: WEIGHT IS MODERATELY OBESE BUT WEIGHT HAS NOT CHANGED Code(s): E66.9 - Obesity, unspecified Category: Medical Plan: DISCUSSED ABOUT WEIGHT MANAGEMENT HE IS NOT INTERESTED IN JOINING ANY WEIGHT REDUCTION PROGRAM Coding Level of Care Code Est Pt Level 3 (46255) Diagnoses PENG on CPAP G47.33; Z99.89 Obesity (BMI 30-39.9) E66.9
--- OUTSIDE RECORDS SUMMARY | 2024-11-22 11:23 | XMS_ITS | Patient Health Record ---
Author Organization [facility] lzu Wittmann Address [address] [place] [address] Care Team Providers Care Hydraulic Press Tender Name Role Phone Lynette HERNANDEZ, Lara Primary Care Provider Unavail able Adilene Ervin Unavailable [phone] Allergies No Known Allergies Results Component Value [...] Problem Acquired hammer toe of right foot (1740972909969645 ) Other hammer toe(s) (acquired), right foot (M20.41) Active confirmed Problem Acquired hammer toe of left foot (7868386901924090 ) Other hammer toe(s) (acquired), left foot (M20.42) Active confirmed Problem Polyneuropathy due to type 2 diabetes mellitus (497556525) Type 2 diabetes mellitus with diabetic polyneuropathy (E11.42) Active confirmed Vital Signs Blood pressure diastolic 75 mm Hg 09/01/2024 Height 5ft9in in 09/01/2024 Blood pressure systolic 121 mm Hg 09/01/2024 Weight 242 lbs 09/01/2024 BMI 35.73 kg/m2 09/01/2024 Encounters [facility]counter [facility] [address] [facility]/01/[facility] Adilene Ervin Type 2 diabetes mellitus with diabetic polyneuropathy E11.42 ; Other hammer toe(s) (acquired), right foot M20.41 ; Tinea unguium B35.1 ; Other hammer toe(s) (acquired), left foot M20.42 ; Diabetic peripheral vascular disease E11.51 and Ingrown nail L60.[address] [facility] [address] 08/15/2024 Adilene Ervin Assessments Encounter Date Diagnosis [...] Details Provider Name:Adilene lane, 12/01/2024 09:00:00 AM, [address] [place] [address], [phone], Insurance Providers Payer Name Payer Address Payer Phone Subscriber Number Group Number Insured Name Patient Relationship to Insured Coverage Start Date Coverage End Date [facility] 65 Medicare Preferred [address] [place] [address] [id number] Peter Gates Self - patient is the insured Medical (General) History Medical History History ICD Code Arthritis Back,Hip,and Knee pain CAD (Cholesterol) covid-19 type II diabetes High Blood Pressure
--- OUTSIDE RECORDS SUMMARY | 2024-11-22 11:23 | XMS_ITS ---
Author Organization [facility] Address [address] [place] [address] Care Team Providers Care Driver/Refuse Collector Name Role Phone Lara Ojeda MD Primary Care Provider Unavail able Adilene Ervin [phone] REASON FOR VISIT DIE TESTER PPWK Entered Encounters Encounter Location Date Provider Diagnosis [address] [address] 08/15/2024 Adilene Ervin Plan Of Treatment Next Appt Details Provider Name:Adilene lane, 12/01/2024 09:00:00 AM, [address] [place] [address], [phone], Progress Notes * Peter BARRIOSDOB:1955 (68 yo M)Acc No.[id number]:08/15/2024 Patient:?Peter BARRIOS :1955???Age:68 Y???Sex:Male Address:[address] [place] [address] * true * Date:? Generated for Isabeli elpidio/Michelle/eTransmitting on:?11/22/2024 11:23 AM EDT
--- OUTSIDE RECORDS SUMMARY | 2024-11-22 11:23 | XMS_ITS | Clinical Summary ---
Author Organization [employer] Address [address] [place] [address] Care Team Providers Care Thread Cutter Name Role Phone Unavailable Primary Care Provider [...]
--- OUTSIDE RECORDS SUMMARY | 2024-11-22 11:23 | XMS_ITS ---
Author Organization [facility] Address [address] [place] [address] Care Team Providers Care Irrigation Supervisor Name Role Phone Lynette HERNANDEZ, Lara Primary Care Provider Unavail able Adilene Ervin Unavailable [phone] Allergies No Known Allergies REASON FOR VISIT [...] Polyneuropathy due to type 2 diabetes mellitus (936954511) Type 2 diabetes mellitus with diabetic polyneuropathy (E11.42) Active confirmed Problem Acquired hammer toe of right foot (9585484273576402 ) Other hammer toe(s) (acquired), right foot (M20.41) Active confirmed Problem Acquired hammer toe of left foot (3333611951094989 ) Other hammer toe(s) (acquired), left foot (M20.42) Active confirmed Vital Signs Height 5ft9in in 09/01/2024 Weight 242 lbs 09/01/2024 BMI 35.73 kg/m2 09/01/2024 Blood pressure systolic 121 mm Hg 09/01/20 24 Blood pressure diastolic 75 mm Hg 024 Encounters Encounter Location Date Provider Diagnosis [facility] [address] [address] 09/01/2024 Adilene Ervin Type 2 diabetes mellitus [...] Name:Adilene Lane Nayeli lane, 12/01/2024 09:00:00 AM, [address] [place] [address], [phone], Procedure Notes * Category Sub-Category Detail Notes [...] use of a nail nipper and/or dremel-type facing grinder, to a more viable healthy nail [...] to maintain effectiveness in symptomatic relief - 82969 Keratoma Treatment Parring or Cutting o f [...] instrumentation by the physician of record - 18637 Progress Notes * Peter BARRIOS: 6 (68 yo M)Acc No.[id number]:09/01/2024 Progress Notes Patient:?Peter BARRIOS Number:[id number] Provider:?Adilene Ervin DPM :1955???Age:68 Y???Sex:Male Saran e:09/01/2024 Address:[address] [place], [place] [id number] Pcp:Lara Ojeda MD Subjective: * Chief Complaints: [...] use of a nail nipper and/or dremel-type facing grinder, to a more viable healthy nail [...] to maintain effectiveness in symptomatic relief - 40327.?Keratoma Treatment:?Parring or Cutting of Benign Hyperkeratotic Lesion(s)?(-56) [...] instrumentation by the physician of record - 39685.? * Procedure Codes:?12355 DEBRI DE NAIL, 6 OR MORE, Modifiers: XS 28646 TRIM SKIN LESIONS, 2 TO 4, Modifiers: [...] Ervin, DPM Date:? Generated for Jerrell magallanes/Michelle/Adrienne on:?11/22/2024 11:23 AM EDT History and Physical Notes * [...]
== END 2024-11-22 10:28 | disposition home or self-care (01) ==
LOC: HO.HPS 10:01
PROVIDERS: PCP Internal Medicine; Visit Provider Internal Medicine
DX: G47.33 Obstructive sleep apnea (adult) (pediatric) (principal); Z99.89 Dependence on other enabling machines and devices; E66.9 Obesity, unspecified
CPT/HCPCS: 99213

== ENCOUNTER → 2024-11-22 10:01 | Outpatient (BNVA) | payer MEDICARE, SELFPAY | PROVIDERS: PCP Internal Medicine; Visit Provider Internal Medicine | DX: G47.33 Obstructive sleep apnea (adult) (pediatric) (principal); E66.9 Obesity, unspecified; Z99.89 Dependence on other enabling machines and devices; Z68.36 Body mass index [BMI] 36.0-36.9, adult | CPT/HCPCS: 99212 ==

== ENCOUNTER 2024-12-07 12:16 | Outpatient (AMB) | payer MEDICARE, SELFPAY ==
--- NOTE | 2024-12-07 12:27 | MHC.PC.OV ---
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: No Accompanied by: Self / Same As Patient Allergies atorvastatin [From LIPITOR] Adverse Reaction (Severe, Verified 12/07/24 12:44) transaminitis Medication List - Last Reconciled 12/07/24 by Lara Lobo MD apixaban (Eliquis) 5 mg PO BID azelastine 1 spray intranasal BID 30 days blood sugar diagnostic (OneTouch Ultra Test strips) Use 1 test strips once a day blood-glucose meter (G3Touch UltraMini kit) As directed blood-glucose meter (OneTouch Ultra2 Meter) As directed coenzyme Q10 (CoQ-10) 100 mg PO DAILY hydrochlorothiazide 25 mg PO QAM lancets (G3Touch UltraSoft Lancets) Use 1 lancet once a day lancets (G3Touch Delica Plus Lancet) Use 1 lancet once a day lovastatin 80 mg (2 x 40 mg) PO DAILY 90 days metformin 500 mg PO DAILY 90 days [id number]-urw-inxfp-I4-sfxyzfe-tjkhbf [id number] mcg (Centrum Silver Men) 1 tab PO DAILY jfwsgaad-ilgs-ekbxk-oreg-capry 100 mg-150 mg- 50 mg-150 mg 1 cap PO DAILY Tobacco use date assessed: 12/07/24 Fall risk assessment: No Falls in past year Last assessed Fall Risk: 12/07/24 Dental Screening Dental Screen Date: 12/07/24 Did you have a dental visit in the last 12 months?: No Did you have a dental problem in the last 6 months where you did not have access to dental care?: No Was dental information given to patient?: Patient declined HPI HPI Comments History of Present Illness Details The patient is a 69-year-old male presenting for physical exam. He is well-managed on Metformin for Type 2 Diabetes Mellitus, with recent blood glucose levels suggesting good control. His A1c of 5.8% reflects his successful diabetes management. However, he continues with elevated LDL levels, though not receiving atorvastatin due to prior transaminitis. Hypertension is noted as well-controlled on his current regimen. Smoking remains consistent at two cigarettes daily. Weight has improved with a recent drop from 244 to 239 pounds, reflecting positive dietary or activity changes. The patient reports a past urological surgical intervention and previously diagnosed skin cancer. Family health history involves both lung cancer and high-risk cardiovascular events, suggesting genetic predispositions. He consistently denies psychological distress, supporting stable mental health status. - A1c measured and controlled at 5.8%. - Discussed not using Atorvastatin due to transaminitis; consideration of Ezetimibe for LDL management. - Hypertension control discussed with current medication use. - Smoking habits include two cigarettes daily?advice given on risks associated. - Vaccinations reviewed: Up to date with Tdap (2020), yet to receive pneumonia vaccine but he declines. - Colonoscopy performed in 2022. - Weight reduction noted and discussed positively. - Regular monitoring via healthcare nurse yearly. [facility] Medical History Mild major depression Arthritis History of blood transfusion PENG on CPAP Obesity (BMI 30-39.9) Obesity due to excess calories with serious comorbidity Shoulder pain Former smoker Obese Essential hypertension Diabetes mellitus type 2 in obese Mixed hyperlipidemia Surgical History H/O colonoscopy History of skin cancer S/P ureteral reimplantation Family History Father Lung cancer Mother Diabetes Hypertension Stroke Social History Housing: House Alcohol intake: former Patient Tobacco Use Status: Current everyday Tobacco user Tobacco use type: Cigarette and Cigar Cigarettes Per Day: 2 e-Cigarette/Vaping Use: Never Used Second Hand Smoke Exposure: No Advance Directives Date on File: 06/17/20 service: No Current occupational status: unemployed Cognitive needs: No Hearing needs: Yes Vision needs: No Questionnaire PHQ-9 Over the last 2 weeks, how often have you been bothered by any of the following problems? 1. Little interest or pleasure in doing things: not at all 2. Feeling down, depressed, or hopeless: not at all 3. Trouble falling or staying asleep, or sleeping too much: not at all 4. Feeling tired or having little energy: not at all 5. Poor appetite or overeating: not at all 6. Feeling bad about yourself - or that you are a failure or have let yourself or your family down: not at all 7. Trouble concentrating on things, such as reading the newspaper or watching television: not at all 8. Moving or speaking so slowly that other people could have noticed. Or the opposite - being so fidgety or restless that you have been moving around a lot more than usual: not at all 9. Thoughts that you would be better off or of hurting yourself in some way: not at all Total score: 0 Depression Screening Interpretation: Negative Depression Screening Done: Yes 12673 - PHQ-9 Billing: Yes Source: Developed by Drs. Chas Calderon, Maggie Miranda, Manohar Hollingsworth and colleagues, with an educational douglas from [employer]. Thrive Questionnaire Date Thrive assessed: 12/07/24 I am a: Patient What is your living situation today?: I have a steady place to live Within the past 12 months, did the food you bought not last and you didn't have the money to get more?: Never true Within the past 12 months, did you worry whether your food would run out before you got money to buy more?: Never true Do you have trouble paying for medicines?: No Do you have trouble getting transportation to medical appointments?: No Do you have trouble paying your heating and electricity bill?: No Do you have trouble taking care of your child, family member or friend?: No Do you have trouble with day-to-day activities such as bathing, preparing meals, shopping, managing finances, etc.?: No Are you currently unemployed and looking for a job?: No Are you interested in more education?: No Please select the resources that you would like help with: None Currently or been in a relationship where the following occur: No concerns reported THRIVE Score: 0 AUDIT C Alcohol Use Questionnaire (AUDIT-C) 1. How often do you have a drink containing alcohol?: Never Total Score: 0 Score Reviewed/Action Taken: No NYDIA-7 AMB Questionnaire NYDIA-7 Date NYDIA - 7 assessed: 12/07/24 Feeling nervous, anxious, or on edge: 0 = Not at all Not being able to stop or control worryin = Not at all Worrying too much about different things: 0 = Not at all Trouble relaxin = Not at all Being so restless that it is hard to sit still: 0 = Not at all Becoming easily annoyed or irritable: 0 = Not at all Feeling afraid as if something awful might happen: 0 = Not at all Total NYDIA-7 score (0-4 normal; 5-9 mild; 10-14 moderate; 15-21 severe): 0 Source: Developed by Drs. Chas Calderon, Maggie Miranda, Manohar Hollingsworth and colleagues, with an educational douglas from [employer]. NYDIA-7 Assessment Billing NYDIA-7 Assessment Tool: NYDIA-7 Assessment 62803 Review of Systems Const All systems reviewed & are unremarkable except as noted in HPI and below Card Denies chest pain at rest, Denies chest pain with activity, Denies edema, Denies irregular heart rhythm, Denies claudication, Denies dyspnea, Denies dyspnea on exertion, Denies orthopnea, Denies paroxysmal nocturnal dyspnea and Denies slow heart rate Resp Denies cough, Denies dyspnea and Denies dyspnea on exertion GI Denies abdominal pain, Denies change in bowel habits, Denies excessive flatus, Denies nausea and Denies vomiting Denies urinary hesitancy, Denies urinary incontinence and Denies urinary urgency Musc Denies abnormal gait, Denies atrophy, Denies deformity and Denies limited range of motion Skin/Breast Denies bleeding lesions, Denies changing lesions and Denies rash Neuro Denies abnormal gait and Denies lack of coordination Physical exam (Primary Care) Vital Signs: Last Vital Signs BP 132/80 12/07/24 12:29 BMI result Body Mass Index 35.3 BMI Assessment/Plan discussion: High BMI High, discussed plan: lifestyle, weight reduction, dietary and physical activity Tobacco/Smoking Status: Tobacco use Status Tobacco use date assessed 12/07/24 12/07/24 12:42 Patient Tobacco Use Status Current everyday Tobacco 12/07/24 12:41 Tobacco use type Cigarette,Cigar 12/07/24 12:41 e-Cigarette/Vaping Use Never Used 12/07/24 12:41 PHQ-9: PHQ-9 Score PHQ-9: Total score 0 12/07/24 12:47 Depression Screening Interpretation: Negative Thrive Assessment: Date of Thrive Assessment Date Thrive assessed 12/07/24 12/07/24 12:41 Currently or been in a relationship where the following occur: No concerns reported [facility] Head: Yes normal to inspection, Yes normocephalic and Yes atraumatic Ears: external ears normal Eyes General: appearance normal, both eyes and all related structures Eyelids: Yes eyelids normal Conjunctivae: conjunctivae normal Neck Neck: Yes normal visual inspection and Yes supple Resp Effort & Inspection: normal respiratory effort Auscultation: clear to auscultation bilaterally Cardio Jugular venous distension: no JVD Rate: regular rate Rhythm: regular rhythm Heart sounds: S1 normal heart sound present and S2 normal heart sound present GI Inspection: Yes normal to inspection Palpation (GI): Soft to palpation and nontender Auscultation: normal bowel sounds Skin General skin exam: no rashes or lesions noted Neuro General: no focal motor deficits Extrem General: Yes full ROM Psych Appearance: grossly normal Results AMB Hemoglobin A1c AMB Hemoglobin A1c 5.8 % Last Edit by THUY Keys on 12/07/24 12:47 Results Reviewed Results Reviewed: Laboratory Last Values Hgb A1c (Clinic) 5.8 % (4.0-6.0) 12/07/24 12:41 Coding Level of Care Code Est Pt Prev Care >65y(47089) Diagnoses Physical exam Z00.00 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 I82.512 Affected thrombotic vein of extremity: femoral Chronicity: chronic Diabetes mellitus type 2 in obese E11.69; E66.9 Additional Codes NYDIA-7 Assessment Billing - NYDIA-7 Assessment Tool: NYDIA-7 Assessment 35559 ([id number]) PHQ-9 - 08829 - PHQ-9 Billing: Yes ([id number]) Time Spent (min) 30 Assessment & Plan Assessment & Plan (1) Physical exam: Code(s): Z00.00 - Encounter for general adult medical examination without abnormal findings Category: Medical (2) Left leg DVT: Code(s): I82.402 - Acute embolism and thrombosis of unspecified deep veins of left lower extremity Category: Medical Qualifiers: Affected thrombotic vein of extremity: femoral Chronicity: chronic Qualified Code(s): I82.512 - Chronic embolism and thrombosis of left femoral vein (3) Diabetes mellitus type 2 in obese: Code(s): E11.69 - Type 2 diabetes mellitus with other specified complication; E66.9 - Obesity, unspecified Category: Medical Plan To address the patient's hyperlipidemia, avoidance of Atorvastatin is due to liver concerns, with potential addition of Ezetimibe for better LDL control. Metformin remains effective for diabetes, supported by recent testing. Blood pressure is optimally managed with current treatment. For health maintenance, the importance of vaccination updates, especially pneumonia after family discussions, was noted. Smoking cessation was encouraged. Weight loss was positively reinforced. Plans include monitoring LDL levels in six months, with imaging considerations for respiratory health. Patient was informed and verbally consented to the use of an ambient scribe for clinic note documentation during this visit. We had an in-depth discussion regarding the management of the patient's hyperlipidemia and its associated challenges due to previous atorvastatin-related transaminitis. Ezetimibe was introduced as a potential lipid-lowering agent. The patient was reminded about the importance of continued Metformin therapy for diabetes control, appreciated his latest A1c results, and noted the risk reduction strategies in place. For hypertension, continuation of his current regimen was recommended based on stable readings. Preventive care conversations highlighted the necessity of the pneumonia vaccine, nil for current uptake after consultation with Erika. The patient?s commitment to avoiding further weight gain was reassuring and complemented with advice for maintaining a balanced diet and physical activity. Counseled on smoking cessation benefits concerning health risks and proposed routine LDL assessments for ongoing monitoring. Orders: Orders AMB Hemoglobin A1c Today E11.69 - Type 2 diabetes mellitus with other specified complication, E66.9 - Obesity, unspecified XR chest 2V Today R06.00 - Dyspnea, unspecified Lipid Panel 6 Months E78.5 - Hyperlipidemia, unspecified Vitamin D 25-OH Total 6 Months E55.9 - Vitamin D deficiency, unspecified Microalbumin, Random (w Creat) 6 Months R80.9 - Proteinuria, unspecified Comprehensive [place]. Panel Fast 6 Months E11.69 - Type 2 diabetes mellitus with other specified complication, E66.9 - Obesity, unspecified
[2024-12-07 12:29] VITALS: BP 132/80; BMI 35.3
== END 2024-12-07 12:55 | disposition home or self-care (01) ==
LOC: HO.HMCH 12:16
PROVIDERS: PCP Internal Medicine; Visit Provider Internal Medicine
DX: Z00.00 Encounter for general adult medical examination without abnormal findings (principal); I82.512 Chronic embolism and thrombosis of left femoral vein; E11.69 Type 2 diabetes mellitus with other specified complication; E66.9 Obesity, unspecified; Z68.35 Body mass index [BMI] 35.0-35.9, adult

== ENCOUNTER → 2024-12-07 12:16 | Outpatient (BNVA) | payer MEDICARE, SELFPAY | PROVIDERS: PCP Internal Medicine; Visit Provider Internal Medicine | DX: Z00.01 Encounter for general adult medical examination with abnormal findings (principal); E11.9 Type 2 diabetes mellitus without complications; I10 Essential (primary) hypertension; I82.512 Chronic embolism and thrombosis of left femoral vein; E11.69 Type 2 diabetes mellitus with other specified complication; E66.9 Obesity, unspecified; R06.00 Dyspnea, unspecified; E78.5 Hyperlipidemia, unspecified; E55.9 Vitamin D deficiency, unspecified; R80.9 Proteinuria, unspecified; F17.210 Nicotine dependence, cigarettes, uncomplicated; Z68.35 Body mass index [BMI] 35.0-35.9, adult; Z79.84 Long term (current) use of oral hypoglycemic drugs | CPT/HCPCS: 83036; 96127; 99397 ==

== ENCOUNTER 2024-12-29 10:11 | Outpatient (REF) | payer MEDICARE, SELFPAY ==
--- NOTE | ~2024-12-29 | US_ITS ---
EXAMINATION: US LOWER EXTREMITY VENOUS (REFLUX EXAM), BILATERAL CLINICAL INFORMATION: Varices. COMPARISON: May 31, 2024 demonstrated chronic occlusive thrombus left femoral and popliteal veins. TECHNIQUE: Color flow triplex imaging and compression Doppler was performed to evaluate left deep and the superficial systems bilaterally. To evaluate the superficial system, the examination was performed in the upright position. Color-flow Doppler ultrasound and compression ultrasound were utilized. In addition, maneuvers were utilized to demonstrate reflux. FINDINGS: DEEP VENOUS ULTRASOUND OF THE LEFT LOWER EXTREMITY: Common Femoral Vein: Compressible, normal respiratory variation and augmented flow. Femoral Vein: Chronic occlusive thrombus. Popliteal Vein: Chronic occlusive thrombus. Deep Reflux: There is no evidence of reflux in the deep system in either the common femoral vein, superficial femoral or the popliteal vein. There is no evidence of a Cortez's cyst. SUPERFICIAL ULTRASOUND WITH DOPPLER OF LEFT LOWER EXTREMITY: GREAT SAPHENOUS VEIN: Saphenofemoral Junction: 0.9 cm; Reflux: 784 ms Proximal Thigh: 0.5 cm; Reflux: 0 ms Mid Thigh: 0.6 cm; Reflux: 1300 ms Distal Thigh: 0.6 cm; Reflux: More than 2744 ms At Knee: 0.6 cm; Reflux: 1592 ms Proximal Calf: 0.5 cm; Reflux: 1544 ms Mid Calf: 0.4 cm; Reflux: 0 ms Distal Calf: 0.4. cm; Reflux: 0 ms DUPLICATED MEDIAL GREAT SAPHENOUS VEIN: Diameter: 0.4 cm. Reflux: NA DUPLICATED LATERAL GREAT SAPHENOUS VEIN: Diameter: None imaged. Reflux: NA SMALL SAPHENOUS VEIN: Saphenopopliteal Junction: 0.4 cm; Reflux: 0 ms Proximal: 0.4 cm; Reflux: 0 ms Distal: 0.3 cm; Reflux: 0 ms VEIN OF GIACOMINI: Size: 0.3 cm. Reflux: NA PERFORATORS: Location: Small saphenous vein mid segment and proximal to mid calf. Size: 0.1-0.5 cm. Reflux: 1156 ms in the proximal calf region. VARICOSITIES: Location: Small saphenous vein mid to distal segment and proximal to mid calf and at the knee. Size: 0.4-0.5 cm. Reflux: 660 ms in the proximal calf. US/US venous duplex LE LT IMPRESSION: Left: Venous insufficiency, great saphenous vein from the junction to below the knee. Varices in the proximal calf with reflux. Perforators in the proximal calf with reflux. Electronically signed by: Sherwin Knapp MD 12/29/2024 02:05 PM EDT RP
--- OUTSIDE RECORDS SUMMARY | 2024-12-29 11:01 | XMS_ITS ---
Author Organization [facility] Address [address] [place] [address] Care Team Providers Care Subacute Nurse Name Role Phone Lynette HERNANDEZ, Lara Primary Care Provider Unavail able Adilene Ervin [phone] [place] [id number] [place] [id number] Encounters Encounter Location Date Provider Diagnosis [address] [address] 12/01/2024 Adilene Ervin Plan Of Treatment Next Appt Details Provider Name:Adilene lane, 03/02/2025 09:15:00 AM, [address] [place] [address], [phone], Progress Notes * Peter BARRIOSDOB: (69 yo M)Acc No.[id number]:12/01/2024 Patient:?Peter BARRIOS :1955???Age:69 Y???Sex:Male Address:[address] [place] [id number] * true * Date:? Generated for Isabeli elpidio/Michelle/eTransmitting on:?12/29/2024 11:00 AM EDT
--- OUTSIDE RECORDS SUMMARY | 2024-12-29 11:01 | XMS_ITS ---
Author Organization [facility] Address [address] [place] [address] Care Team Providers Care Director Emergency Name Role Phone Lynette HERNANDEZ, Lara Primary Care Provider Unavail able Adilene Ervin Unavailable [phone] Allergies No Known Allergies REASON FOR VISIT [...] Polyneuropathy due to type 2 diabetes mellitus (240979336) Type 2 diabetes mellitus with diabetic polyneuropathy (E11.42) Active confirmed Problem Acquired hammer toe of right foot ([id number] ) Other hammer toe(s) (acquired), right foot (M20.41) Active confirmed Problem Acquired hammer toe of left foot ([id number] ) Other hammer toe(s) (acquired), left foot (M20.42) Active confirmed Vital Signs Height 5ft9in in 09/01/2024 Weight 242 lbs 09/01/2024 BMI 35.73 kg/m2 09/01/2024 Blood pressure systolic 121 mm Hg 09/01/20 24 Blood pressure diastolic 75 mm Hg 024 Encounters Encounter Location Date Provider Diagnosis [facility] [address] [address] 09/01/2024 Adilene Ervin Type 2 diabetes mellitus [...] Months, Reason: Provider Name:Adilene Lane Nayeli lane, 03/02/2025 09:15:00 AM, [address] [place] [address], [phone], Procedure Notes * Category Sub-Category Detail Notes [...] use of a nail nipper and/or dremel-type rotary surface grinder, to a more viable healthy nail [...] to maintain effectiveness in symptomatic relief - 33170 Keratoma Treatment Parring or Cutting o f [...] instrumentation by the physician of record - 20627 Progress Notes * Peter BARRIOS: 6 (68 yo M)Acc No.[id number]:09/01/2024 Progress Notes Patient:?Peter BARRIOS Number:[id number] Provider:?Adilene Ervin DPM :1955???Age:68 Y???Sex:Male Saran e:09/01/2024 Address:[address] [place], [place] [id number] Pcp:Lara Ojeda MD Subjective: * Chief Complaints: [...] use of a nail nipper and/or dremel-type rotary surface grinder, to a more viable healthy nail [...] to maintain effectiveness in symptomatic relief - 73234.?Keratoma Treatment:?Parring or Cutting of Benign Hyperkeratotic Lesion(s)?(-56) [...] instrumentation by the physician of record - 46288.? * Procedure Codes:?22988 DEBRI DE NAIL, 6 OR MORE, Modifiers: XS 01557 TRIM SKIN LESIONS, 2 TO 4, Modifiers: [...] Ervin, DPM Date:? Generated for Jerrell magallanes/Michelle/Adrienne on:?12/29/2024 11:00 AM EDT History and Physical Notes * HPI (History of Present Illness) Category Sub-Category Detail Notes Category Not es Toe pain Location: B/L feet Duration: several years Course: worse Aggravated by: shoes, any pressure Treatments: change in shoes Ingrown toenail Location: Great toe, Both feet At Risk footcare Pt States Last PCP Visit: Date: 4 Examination Category Sub-Category Detail Notes Category Not [...] Medial plantar, T5, Plantar Heel(s), B/L Orthopedic FOOTWEAR EVALUATION: worn, non-s upportive, shoe gear properties exacerbate patient's foot/toe deformity [...]
--- OUTSIDE RECORDS SUMMARY | 2024-12-29 11:01 | XMS_ITS ---
Author Organization [facility] Bharati escobar [place] Address [address] [place] [address] Care Team Providers Care Coal Hiker Name Role Phone Lynette HERNANDEZ, Lara Primary Care Provider Unavail able Adilene Ervin Unavailable [phone] Allergies No Known Allergies REASON FOR VISIT At Risk Footcare, Toe Irritation Medications Medication SIG (Take, Route, Frequency, Duration) Notes Start Date End Date Status Eliquis Active Azelastine HCl Activ e Extra Depth Orthopedic Shoes (1 Pair) with Customized Heat Molded Multidensity Innersoles (3 Pair) as directed Dx: NIDDM/Polyneuropathy (E11.42), Hammertoe Foot Deformity (M20.41,M20.42), Preulcerative Skin Lesion(s) (L85.1 Active metFORMIN HCl Active Lovastatin Active Social History Tobacco Use: Social History Observation Description Date Details (start date - stop date) Current Smoker NA - NA Tobacco use other than smoking: Question Answer Notes Are you an other tobacco user? Yes Tobacco Control (Standard) Question Answer Notes Tobacco use: Current smoker How often do you smoke cigarettes? Every day How many cigarettes a day do you smoke? 5 or les s How soon after you wake up do you smoke your fir st cigarette? 6-30 minutes Are you interested in quitting? Not ready to chani t AUDIT-C (Standard) Question Answer Notes Did you have a drink containing alcohol in the p ast year? No Points 0 Interpretation Negative Vital Signs Height 5ft 9in in 12/01/2024 Weight 240 lbs 12/01/2024 BMI 35.44 kg/m2 12/01/2024 Blood pressure systolic 121 mm Hg 12/02/19 25 Blood pressure diastolic 75 mm Hg 025 Encounters Encounter Location Date Provider Diagnosis [facility] [place] [address] [place] [address] 12/01/2024 Adilene Ervin Other hammer toe(s) (acquired), right foot M20.41 ; Ingrown nail L60.0 ; Type 2 diabetes mellitus with diabetic polyneuropathy E11.42 ; Tinea unguium B35.1 ; Other hammer toe(s) (acquired), left foot M20.42 ; Diabetic peripheral vascular disease E11.51 ; Pain in right toe(s) M79.674 and Pain in left toe(s) M79.675 Assessments Encounter Date Diagnosis (ICD Code) Assessment Notes Treatment Notes Treatment Clinical Notes Section Notes 12/01/2024 Other hammer toe(s) (acquired), right foot (ICD-10 - M20.41) Patient Educated with: DIABETIC FOOT CARE INSTRUCTIONS. pdf (DIABETIC FOOT CARE INSTRUCTIONS. pdf) 12/01/2024 Ingrown nail (ICD-10 - L60.0) 12/01/2024 Type 2 diabetes mellitus with diabetic polyneuropathy (ICD-10 - E11.42) 12/01/2024 Tinea unguium (ICD-10 - B35.1) 12/01/2024 Other hammer toe(s) (acquired), left foot (ICD-10 - M20.42) 12/01/2024 Diabetic peripheral vascular disease (ICD-10 - E11.51) 12/01/2024 Pain in right toe(s) (ICD-10 - M79.674) 12/01/2024 Pain in left toe(s) (ICD-10 - M79.675) Plan Of Treatment Medication Medication Name Sig Start Date Stop Date Notes Extra Depth Orthopedic Shoes (1 Pair) with Customized Heat Molded Multidensity Innersoles (3 Pair) as directed Dx: NIDDM/Polyneuropathy (E11.42), Hammertoe Foot Deformity (M20.41,M20.42), Preulcerative Skin Lesion(s) (L85.1 Treatment Notes Assessment Notes Other hammer toe(s) (acquired), right fo ot Patient Educated with: DIABETIC FOOT CARE INSTRUCTIONS.pdf (DIABETIC FOOT CARE INSTRUCTIONS.pdf) Next Appt Details Follow Up: 3 Months, Reason: Provider Name:Adilene lane, 03/02/2025 09:15:00 AM, [address] [place] [address], [phone], Procedure Notes * Category Sub-Category Detail Notes [...] use of a nail nipper and/or dremel-type grinder lap, to a more viable healthy nail plate [...] to maintain effectiveness in symptomatic relief - 68899 Keratoma Treatment Parring or Cutting o f [...] instrumentation by the physician of record - 33472 Progress Notes * Peter BARRIOSB: 6 (69 yo M)Acc No.[id number]:12/01/2024 Progress Note Patient:?Peter BARRIOS Provider:?Adilene Ervin DPM :1955???Age:69 Y???Sex:Male Saran e:12/01/2024 Address:[address] [place], [place] [id number] Pcp:Lara Ojeda MD Subjective: * Chief Complaints: * ???At Risk FootcareToe Irrit ation * HPI: ???At Risk footcare:?Pt States Last PCP Visit:?Date?09/13/2024 ???Toe pain:?Location:?B/L feet.?Duration:?several years.?Course:?worse.?Aggravated by:?shoes, any pressure.?Treatments:?states still needs - RX?.?Ingrown toenail:?Location:?Great toe, Both feet.?Duration:?several years.?Course:?intermittent.? * ROS:?General/Constitutional:?Nausea?denies.?Vomiting?denies.?Hunger Thirst?denies.?Loss appetite?denies.?Chills?denies.?Fatigue?denies.?Fever?denies.?Night Sweats?denies.?Unexplained weight loss?denies.?Unexplained weight gain?denies.?HEENTM:?Dentures?denies.?Dizziness?denies.?Glasses/contacts?denies.?Retinopathy?den ies.?Blurred/double vision?denies.?TMJ?denies.?Discharge/drainage?denies.?Implants?denies.?Sore throat?denies.?Dental implants?denies.?Hard of hearing ?denies.?Difficulty chewing/swallowing/speaking?denies.?Nose bleeds?denies.?Sore mouth?denies.?Respiratory:?On O xygen?denies.?Pneumonia/pleurisy?denies.?Bronchitis?denies.?Emphysema?denies.?Co ughing?denies.?Cough blood?denies.?Shortness of breath?denies.?Wheezing?denies.?Cardiovascular:?Pacemaker?denies.?MVP?denies.?WPW?denies.?CHF?denies.?Heart attack?denies.?Septal defect?denies.?Rapid beat?denies.?Chest pain ?denies.?Atrial Fib.?denies.?Murmur/Palpitations?denies.?Gastrointestinal:?Hemorrhoids?denies.?Stomach/Abdominal pain?denies.?Dark blood stool?denies.?Irritable bowel ?denies.?Constipation?denies.?Diarrhea?denies.?Hematology:?Swelling?denies.?Clots?denies.?Varicose Veins?denies.?Bruising?denies.?Bleeding problem?denies.?Genitourinary:?Blood urine?denies.?Frequent/Painfu/urination/bladder control?denies.?Kidney stones?denies.?Infection (UTI)?denies.?Nephropathy?denies.?sex trans dis (STD)?denies.?Prostate?denies.?Musculoskeletal:?Hammertoes?denies.?Bunions?denies.?Back Pain?denies.?Muscle Cramps/ Resting?denies.?Muscle cramps / walking?denies.?Generalized aches and pains?denies.?Weakness?denies.?Integ.:?Juares?denies.?Scars?denies.?Corns/calluses?denies.?Ingrown nails?admits.?Painful nails?denies.?Open Sores?denies.?Rashes?denies.?Neurologic:?Difficulty sleeping?denies.?Brain disorder?denies.?Numbness?denies.?Balance t rouble?denies.?Confusion?denies.?Fainting/blackouts?denies.?Tingling?denies.?Romel mors?denies.? * Medical History:? * Surgical History:?Denies Pas [...] other than smoking?Are you an other tobacco user??Yes ?Tobacco Control (Standard)?Tobacco use:?Current smoker ?How often do you smoke cigarettes??Every day ?How many cigarettes a day do you smoke??5 or less ?How soon after you wake up do you smoke your first cigarette??6-30 minutes ?Are you interested in quitting??Not ready to quit ???Drugs/Alcohol:?Drugs?Have you used drugs other than those for medical reasons in the past 12 months??No ???Miscellaneous:?Caffeine: yes, 1-2 cups per day. ?Children: yes, 3. ?Exercise: no. ?Marital status: . ?Occupation: retired. ???Drug/Alcohol:?AUDIT-C (Standard)?Did you have a drink containing alcohol in the past year??No ?Points?0 ?Interpretation?Negative * Medications:?TakingmetFORMIN HCl Lovastatin Eliquis Azelastine HCl Extra Depth Orthopedic Shoes (1 Pair) with Customized Heat Molded Multidensity Innersoles (3 Pair) as directed Dx: NIDDM/Polyneuropathy (E11.42), Hammertoe Foot Deformity (M20.41,M20.42), Preulcerative Skin Lesion(s) (L85.1 Medication List reviewed and reconciled with the patientTaking metFORMIN HCl Taking Lovastatin Taking Eliquis Taking Azelastine HCl Taking Extra Depth Orthopedic Shoes (1 Pair) with Customized Heat Molded Multidensity Innersoles (3 Pair) as directed Dx: NIDDM/Polyneuropathy (E11.42), Hammertoe Foot Deformity (M20.41,M20.42), Preulcerative Skin Lesion(s) (L85.1 Medication List reviewed and reconciled with the patient * Allergies:?N.K.D.A.yes[Aller gies Verified] Objective: * Vitals:?Ht: 5ft 9in, Wt:240, BMI:35.44, Shoe size: 12W, BP:121/75mm Hg, BS: 98, Ht-cm: 175.26 cm, Wt-k.86 kg. * ???Past Orders: ???Lab:HEMOGLOBIN A1C (GLYCO HEMOGLOBIN) (Order Date - 09/13/2024) (Collection Date & Time - 12/01/2024 08:59 AM) ? Value Reference Range ?HEMOGLOBIN A1C % (HH) 5.4 * Examination: ???Ophthalmology Referral: ?DIABETES EYE EXAM?Procedure Performed:?Yes ?Date of Exam Performed?02/14/2024 ?Diabetic Retinopathy Screening:?Yes ?Findings of Diabetic Eye Exam:?no retinopathy?Neurological: ?SENSORY:?(DM/Neuro) Neurological exam demonstrates reduced sharp/dull pin prick discrimination reduced light touch sensation reduced vibration sensation reduced proprioception sensation in a stocking fashion 5.07 monofilament test performed at plantar aspects of 5 varied sites per foot shows sensation plantar aspects absent at Forefoot B/L.?Nails: ?NAILS are:?Elongated, overgrown, dystrophic, lytic, greater than [...] cool to cool, proximal to distal, B/L.?PIGMENTATION:?pale, B/L.?EDEMA (C):?absent, B/L.?Orthopedic: ?MUSCLE STRENGTH:?5/5 all groups in a [...] and time.?FOOT EXAM:?Lower Extremity Neurological Exam performed:?Yes ?Visual exam of foot performed:?Yes ?Date?12/01/2024 ?Footwear Evaluation?Footwear Evaluation performed:?Yes?Ingrown Nail: ?INSPECTION:?Reveals nail incurvation, pain on palpation, groove hypertrophy, Lateral nail border, TA, T5, There is evidence of surrounding periungual tissue erythema.? Assessment: * Assessment: 1.?Other hammer toe(s) (acqu ired), right foot - M20.41???Specify :Chronic problem, Worse (4),Rx Management (4)???2.?Ingrown nail - L60.0 (Primary)???Specify :Chronic problem, Stable (1=3,2=4)? Uncomplicated (3)???3.?Type 2 diabetes mellitus with diabetic polyneuropathy - E11.42???4.?Tinea unguium - B35.1???5.?Other hammer toe(s) (acquired), left foot - M20.42???Specify :Chronic problem, Worse (4),Rx Management (4)???6.?Diabetic peripheral vascular disease - E11.51???7.?Pain in right toe(s) - M79.674???8.?Pain in left toe(s) - M79.675??? Plan: * Treatment: * Procedures:?Debride Nail 6-10:?Nail [...] use of a nail nipper and/or dremel-type grinder lap, to a more viable healthy nail plate [...] to maintain effectiveness in symptomatic relief - 72104.?Keratoma Treatment:?Parring or Cutting of Benign Hyperkeratotic Lesion(s)?(-56) [...] instrumentation by the physician of record - 23618.? * Procedure Codes:?01468 DEBRI DE NAIL, 6 OR MORE, Modifiers: XS 94362 TRIM SKIN LESIONS, 2 TO 4, Modifiers: XS * Preventive Medicine:? ??Counseling:?Discussion:?-12: Office or other outpatient visit for the evaluation and management of an established patient, which required a medically appropriate history and/or examination and STRAIGHTFORWARD level of MEDICAL DECISION MAKING, 1 SELF-LIMITED OR MINOR PROBLEM, MINIMAL- NO AMOUNT/COMPLEXITY OF DATA TO BE REVIEWED/ANALYZED, AND MINIMAL RISK OF COMPLICATION/MORBIDITY. The visit on the day of the [...] the answers were verbally confirmed fully understood, AGAIN Pt defers PNA or NA, Nails debrided with good relief of pain, pt to monitor for any signs of infection, pt should soak in warm water and epsom salts and apply antibotic ointment as needed, call with any issues, pt wants to check with insurance that an NA or PNA would be a covered service.?Diabetic Footcare:?Diabetic footcare is reviewed with the patient. [...] a full understanding of the above information. Another A Rx for Extra Depth Orthopedic Shoes with 3 pair of custom heat-molded inserts was dispensed.? * Follow Up:?3 Months * Images: * Sign off status: Completed true * Provider:?Adilene Ervin, DPVikram Date:? Generated for Jerrell magallanes/Michelle/eTransmtriny on:?12/29/2024 11:00 AM EDT History and Physical Notes * HPI (History of Present Illness) Category Sub-Category Detail Notes Category Not es Toe pain Location: B/L feet Duration: several years Course: worse Aggravated by: shoes, any pressure Treatments: states still needs - RX Ingrown toenail Duration: several years Location: Great toe, Both feet Course: intermittent At Risk footcare Pt States Last PCP Visit: Date: 5 Examination Category Sub-Category Detail Notes Category Not es Ingrown Nail INSPECTION: Reveals nail inc urvation, pain on palpation, groove hypertrophy, Lateral nail border, TA, T5, There is evidence of surrounding periungual tissue erythema Neurological SENSORY: (DM/Neuro) Neuro logical exam demonstrates reduced sharp/dull pin prick discrimination reduced light touch sensation reduced vibration sensation reduced proprioception sensation in a stocking fashion 5.07 monofilament test performed at plantar aspects of 5 varied sites per foot shows sensation plantar aspects absent at Forefoot B/L Dermatologic SKIN FINDINGS: Skin exam reveal s [...] Lower Extremity Neurological Exa m performed:: Yes Visual exam of foot performed:: Yes Date: 12/01/2024 ORIENTED: person, place, and t lupe Footwear Evaluation Footwear Evaluation performe d:: Yes Ophthalmology Referral DIABETES EYE EXAM Procedure Perform ed:: Yes ?Date of Exam Performed: 02/14/2024 Diabetic Retinopathy Screening:: Yes Findings of Diabetic Eye Exam:: no retin opathy Vascular DP PULSES (B): 0/4, LEFT, 1/4, RIGHT PT PULSES (B): 0/4, LEFT, 1/4, RIGH T CAPILLARY FILL TIME: 4 secs. per digit TEMPERTURE GRADIENT (C): decreased, cool to cool, proximal to distal, B/L TROPHIC CONDITION-TEXTURE/ELASTICITY/TURGOR/HAIR GROWTH (B): with sparse to absent hair growth, B/L EDEMA (C): absent, B/L PIGMENTATION: pale, B/L Nails NAILS are: Elongated, overg rown, dystrophic, lytic, greater than 3mm thick, discolored and friable with crumbly malodorous subungual debris, with dull to no pain on palpation due to neuropathy, TA, T1, T2, T3, T4, T5, T6, T7, T8, T9
--- OUTSIDE RECORDS SUMMARY | 2024-12-29 11:01 | XMS_ITS | Clinical Summary ---
Author Organization [employer] Address [address] [facility] [address] [place] [address] Care Team Providers Care Activated Sludge Attendant Name Role Phone Unavailable Primary Care Provider [...]
--- OUTSIDE RECORDS SUMMARY | 2024-12-29 11:01 | XMS_ITS | Patient Health Record ---
Author Organization [facility] Address [address] [place] [address] Care Team Providers Care Eligibility Supervisor Name Role Phone Lynette HERNANDEZ, Lara Primary Care Provider Unavail able Adilene Ervin Unavailable [phone] Allergies No Known Allergies Results Component Value Reference Range Notes HEMOGLOBIN A1C (GLYCOHEMOGLO BIN) Reviewed date:09/01/2024 08:28:07 AM Interpretation: Performing Lab: Notes/Report: TOTAL HEMOGLOBIN (HGBA1C) 4.9 HEMOGLOBIN A1C (GLYCOHEMOGLO BIN) Reviewed date:12/01/2024 09:00:02 AM Interpretation: Performing Lab: Notes/Report: HEMOGLOBIN A1C % (HH) 5.4 Reason For Referral No Information Medications Medication [...] Problem Acquired hammer toe of right foot (8004617595311854 ) Other hammer toe(s) (acquired), right foot (M20.41) Active confirmed Problem Acquired hammer toe of left foot (4529842872668932 ) Other hammer toe(s) (acquired), left foot (M20.42) Active confirmed Problem Polyneuropathy due to type 2 diabetes mellitus (570534549) Type 2 diabetes mellitus with diabetic polyneuropathy (E11.42) Active confirmed Vital Signs Blood pressure diastolic 75 mm Hg 12/01/2024 Height 5ft 9in in 12/01/2024 Blood pressure systolic 121 mm Hg 12/01/2024 Weight 240 lbs 12/01/2024 BMI 35.44 kg/m2 12/01/2024 Encounters Encounter Location Date Provider Diagnosis [address] [address] 09/01/2024 Adilene Ervin Type 2 diabetes mellitus with diabetic polyneuropathy E11.42 ; Other hammer toe(s) (acquired), right foot M20.41 ; Tinea unguium B35.1 ; Other hammer toe(s) (acquired), left foot M20.42 ; Diabetic peripheral vascular disease E11.51 and Ingrown nail L60.0 [address] [address] 12/01/2024 Adilene Ervin Other hammer toe(s) (acquired), right foot M20.41 ; Ingrown nail L60.0 ; Type 2 diabetes mellitus with diabetic polyneuropathy E11.42 ; Tinea unguium B35.1 ; Other hammer toe(s) (acquired), left foot M20.42 ; Diabetic peripheral vascular disease E11.51 ; Pain in right toe(s) M79.674 and Pain in left toe(s) M79.[address] [address] 08/15/2024 [facility] [place] [address] [place] [address] 12/01/2024 Adilene Ervin Assessments Encounter Date Diagnosis (ICD Code) Assessment Notes Treatment Notes Treatment Clinical Notes Section Notes 09/01/2024 Other hammer toe(s) (acquired), right foot (ICD-10 - M20.41) Patient Educated with: DIABETIC FOOT CARE INSTRUCTIONS. pdf (DIABETIC FOOT CARE INSTRUCTIONS. pdf) 09/01/2024 Type 2 diabetes mellitus with diabetic polyneuropathy (ICD-10 - E11.42) 12/01/2024 Other hammer toe(s) (acquired), right foot (ICD-10 - M20.41) Patient Educated with: DIABETIC FOOT CARE INSTRUCTIONS. pdf (DIABETIC FOOT CARE INSTRUCTIONS. pdf) 12/01/2024 Ingrown nail (ICD-10 - L60.0) 12/01/2024 Type 2 diabetes mellitus with diabetic polyneuropathy (ICD-10 - E11.42) 09/01/2024 Tinea unguium (ICD-10 - B35.1) 09/01/2024 Other hammer toe(s) (acquired), left foot (ICD-10 - M20.42) 12/01/2024 Tinea unguium (ICD-10 - B35.1) 12/01/2024 Other hammer toe(s) (acquired), left foot (ICD-10 - M20.42) 09/01/2024 Diabetic peripheral vascular disease (ICD-10 - E11.51) 12/01/2024 Diabetic peripheral vascular disease (ICD-10 - E11.51) 09/01/2024 Ingrown nail (ICD-10 - L60.0) 12/01/2024 Pain in right toe(s) (ICD-10 - M79.674) 12/01/2024 Pain in left toe(s) (ICD-10 - M79.675) Plan Of Treatment Next Appt Details Provider Name:Adilene lane, 03/02/2025 09:15:00 AM, [address] [place], [address], Insurance Providers Payer Name Payer Address Payer Phone Subscriber Number Group Number Insured Name Patient Relationship to Insured Coverage Start Date Coverage End Date [employer] 65 Medicare Preferred [address] [place] [address] [id number] Peter Gates Self - patient is the insured Medical (General) History Medical History History ICD Code Arthritis Back,Hip,and Knee pain CAD (Cholesterol) covid-19 type II diabetes High Blood Pressure
== END 2024-12-29 10:12 | disposition home or self-care (01) ==
LOC: HO.US 10:11
PROVIDERS: PCP Internal Medicine; Visit Provider Surgery Vascular Surgery
DX: I83.12 Varicose veins of left lower extremity with inflammation (principal)
CPT/HCPCS: 93971

== ENCOUNTER → 2024-12-29 10:13 | Outpatient (BNV) | payer MEDICARE, SELFPAY | PROVIDERS: PCP Internal Medicine; Visit Provider Radiology Diagnostic Radiology | DX: M79.89 Other specified soft tissue disorders (principal) | CPT/HCPCS: 93971 ==

== ENCOUNTER 2025-01-15 11:24 | Outpatient (AMB) | payer MEDICARE, SELFPAY ==
[2025-01-15 12:58] VITALS: BP 118/80; PULSE 67; O2SAT 95; BMI 36.2
--- NOTE | 2025-01-15 12:58 | AM.OFFWIN_ITS ---
Intake Vital Signs 01/15/25 12:58 Height 5 ft 9 in Weight 245 lb BMI 36.2 BP 118/80 Blood Pressure Location Rt brachial Position Sitting Pulse 67 Pulse Source Pulse Oximeter Pulse Oximetry (%) 95 Oxygen Delivery Method Room Air Intake Visit Reasons: EP Lower back/RT side Hip/down leg Intake Note: Patient here for lower right back pain that radiates down the leg that has been present for about 1 week. Patient Tobacco Use Status: Current everyday Tobacco user Allergies atorvastatin [From LIPITOR] Adverse Reaction (Severe, Verified 01/15/25 13:01) transaminitis Do you need a note to return to daycare/school/sports/work: No HPI HPI Comments History of Present Illness Details The patient is a 69-year-old male presenting with back pain. 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 It is characterized as sharp, located in the right buttock, and radiating to the ankle with episodes of leg numbness. The patient has a past medical history significant for arthritis in the back, which has not previously caused such symptoms. Despite applying ice, heat, and using Tylenol, the pain persists and has contributed to stress-related increases in blood sugar levels. Daily blood sugar monitoring has shown a rise, likely stress-induced from the ongoing pain, but he denies any bowel or bladder incontinence. - Onset and Timing: Began one week ago f ollowing carpentry work. - Quality and Character: Sharp pain. - Primary Location: Right buttock. - Areas of Radiation: Radiates down to t he ankle. - Exacerbating Factors: Physical labor a nd certain movements. - Relieving Factors: Ice and heat applic ation have provided no significant relief. - Activities Interference: Pain interfer es with daily activities and sleep. - Affect: Pain contributing to stress, p otentially affecting blood sugar levels. - Analgesia: Currently taking Tylenol wi thout satisfactory relief. - Adverse Effects: No adverse effects re ported from Tylenol. - Activities of Daily Living: Pain affec ts ability to perform daily activities and sleep. - Aberrant Drug Related Behaviors: None reported or indicated. [facility] Medical History Mild major depression Arthritis History of blood transfusion PENG on CPAP Obesity (BMI 30-39.9) Obesity due to excess calories with serious comorbidity Shoulder pain Former smoker Obese Essential hypertension Diabetes mellitus type 2 in obese Mixed hyperlipidemia Surgical History H/O colonoscopy History of skin cancer S/P ureteral reimplantation Family History Father Lung cancer Mother Diabetes Hypertension Stroke Social History Housing: House Alcohol intake: former Patient Tobacco Use Status: Current everyday Tobacco user Tobacco use type: Cigarette and Cigar Cigarettes Per Day: 2 e-Cigarette/Vaping Use: Never Used Second Hand Smoke Exposure: No Advance Directives Date on File: 06/17/20 service: No Current occupational status: unemployed Cognitive needs: No Hearing needs: Yes Vision needs: No Review of Systems Const Details: - Musculoskeletal: Reports right buttock pain radiating to the ankle. - Neurological: Denies incontinence; reports leg numbness. - Endocrine: Reports increased blood sugar levels due to stress. Physical Exam Vital Signs: Last Vital Signs Pulse 67 01/15/25 12:58 BP 118/80 01/15/25 12:58 Pulse Ox 95 01/15/25 12:58 Oxygen Delivery Method Room Air 01/15/25 12:58 BMI result Body Mass Index 36.2 Lumbar exam: Able to transition from sit to stand unassisted. Ambulates with bilaterally normal heel strike and toe off Visual inspection without gross abnormality Tender to palpation over midline lumbar vertebrae and lumbar paraspinal muscles SLR positive on the right Negative footdrop, negative clonus Bilateral lower extremity strength 5/5 Lumbar range of motion significantly decreased secondary to pain Results Reviewed Results Reviewed: 01/15/2025 XR/XR lumbar spine 4V min FINDINGS: Endplate sclerosis and decreased intervertebral disc height at multiple levels more conspicuous at L5-S1. Grade 1 anterolisthesis L4-5. Facet joint hypertrophy at L4-5 and L5-S1. S-shaped curvature of the thoracolumbar spine. No lytic or blastic lesions. Vascular complications, aorta. IMPRESSION: Multilevel lumbar spondylosis resulting in grade 1 anterolisthesis L4-5. Assessment & Plan Assessment & Plan (1) Lumbar radiculopathy: Code(s): M54.16 - Radiculopathy, lumbar region Plan A short course of prednisone has been prescribed to address inflammation that may be contributing to the back pain, considering the patient's anticoagulant use, NSAIDs are avoided. A muscle relaxant is also prescribed for nocturnal discomfort. An x-ray of the back is ordered to evaluate arthritic changes and assist Dr. Yeboah in future management. The patient is advised to monitor blood sugar levels due to steroid use and consult Dr. Yeboah if significant elevations occur. An MRI may be considered if persistent pain, and emergency care is advised if symptoms escalate. I discussed with the patient the indication for prescribing prednisone, highlighting its potential for reducing inflammation causing nerve irritation. We reviewed the increased risk of elevated blood sugars with steroid use and stressed the importance of monitoring. I clarified that NSAIDs are contraindicated due to his anticoagulant therapy. The need for x-ray imaging to evaluate arthritis extent or acute changes was explained, and that further imaging might be necessary. We discussed potential outcomes, the necessity of follow-up with Dr. Yeboah, and reasons for seeking emergency care if symptoms exacerbate. The patient understood and agreed with this management plan. Patient was informed and verbally consented to the use of an ambient scribe for clinic note documentation during this visit. Orders: Orders XR lumbar spine 4V min Today M54.9 - Dorsalgia, unspecified Medications: New baclofen 5 mg PO BID PRN 30 tabs 0RF muscle spasm prednisone monitor blood sugars closely while taking this medication 40 mg (2 x 20 mg) PO DAILY 10 tabs 0RF Patient Instructions: - Take prescribed prednisone and monitor blood sugar levels closely. - Use the prescribed muscle relaxant, particularly at bedtime. - Follow up with Dr. Yeboah if persistent pain or elevated blood sugar levels occur. - Seek emergency care if pain worsens significantly or new symptoms develop. - Maintain a record of daily blood sugar readings and report any significant changes. Coding Level of Care Code Est Pt Level 3 (70944) Diagnoses Lumbar radiculopathy M54.16
--- OUTSIDE RECORDS SUMMARY | 2025-01-15 13:11 | XMS_ITS ---
Author Organization [facility] Address [address] [place] [address] Care Team Providers Care Catering Sales Manager Name Role Phone Lynette HERNANDEZ, Lara Primary Care Provider Unavail able Adilene Ervin Unavailable [phone] Allergies No Known Allergies REASON FOR VISIT [...] Problem Status W/U Status Risk Notes Problem Type 2 diabetes mellitus with diabetic polyneuropathy (E11.42) Active confirmed Problem Acquired hammer toe of right foot (688236358655 9105) Other hammer toe(s) (acquired), right foot (M20.41) Active confirmed Problem Acquired hammer toe of left foot (122068280042 9103) Other hammer toe(s) (acquired), left foot (M20.42) Active confirmed Vital Signs Height 5ft9in in 09/01/2024 Weight 242 lbs 09/01/2024 BMI 35.73 kg/m2 09/01/2024 Blood pressure systolic 121 mm Hg 09/01/20 24 Blood pressure diastolic 75 mm Hg 024 Encounters Encounter Location Date Provider Diagnosis [facility] [address] [place] [address] 09/01/2024 Adilene Nayeliariana Type 2 diabetes mellitus with diabetic polyneuropathy [...] Reason: Provider Name:Adilene lane, 03/02/2025 09:15:00 AM, [address] [place] [address], [phone], Procedure Notes * Category Sub-Category Detail Notes [...] use of a nail nipper and/or dremel-type ink grinder, to a more viable healthy nail [...] to maintain effectiveness in symptomatic relief - 64960 Keratoma Treatment Parring or Cutting o f [...] instrumentation by the physician of record - 17890 Progress Notes * Peter BARRIOSDOB: 6 (68 yo M)Acc No.[id number]:09/01/2024 Progress Notes Patient:?Peter BARRIOS Provider:?Adilene Ervin DPM :1955???Age:68 Y???Sex:Male Saran e:09/01/2024 Address:[address] [place], [place] [id number] Pcp:Lara Ojeda MD Subjective: * Chief Complaints: [...] use of a nail nipper and/or dremel-type ink grinder, to a more viable healthy nail [...] to maintain effectiveness in symptomatic relief - 45844.?Keratoma Treatment:?Parring or Cutting of Benign Hyperkeratotic Lesion(s)?(-56) [...] instrumentation by the physician of record - 27580.? * Procedure Codes:?18771 DEBRI DE NAIL, 6 OR MORE, Modifiers: XS 80304 TRIM SKIN LESIONS, 2 TO 4, Modifiers: [...] Provider:?Adilene Ervin, DPM Date:? Generated for Jerrell magallanes/Michelle/Winitting on:?01/15/2025 01:11 PM EDT History and Physical Notes * HPI [...]
--- OUTSIDE RECORDS SUMMARY | 2025-01-15 13:11 | XMS_ITS | Clinical Summary ---
Author Organization [email or web address] Address [address] [facility] [address] [place] [address] Care Team Providers Care Order Detailer Name Role Phone Unavailable Primary Care Provider [...]
--- OUTSIDE RECORDS SUMMARY | 2025-01-15 13:11 | XMS_ITS ---
Author Organization [facility] Address [address] [place] [address] Care Team Providers Care Bus Person Name Role Phone Lynette HERNANDEZ, Lara Primary Care Provider Unavail able Adilene Ervin [phone] [place] [phone] [place] [phone] Encounters Encounter Location Date Provider Diagnosis [address] [address] 12/01/2024 Adilene Ervin Plan Of Treatment Next Appt Details Provider Name:Adilene lane, 03/02/2025 09:15:00 AM, [address] [place] [address], [phone], Progress Notes * Peter BARRIOSDOB: (69 yo M)Acc No.[id number]:12/01/2024 Patient:?Peter BARRIOS :1955???Age:69 Y???Sex:Male Address:[address] [place] [id number] * true * Date:? Generated for Isabeli elpidio/Michelle/eTransmitting on:?01/15/2025 01:11 PM EDT
--- OUTSIDE RECORDS SUMMARY | 2025-01-15 13:12 | XMS_ITS ---
Author Organization [facility] [place] Address [address] [facility] [place] [address] Care Team Providers Care Control Supervisor Name Role Phone Lynette HERNANDEZ, Lara Primary Care Provider Unavail able Adilene Ervin Unavailable [phone] Allergies No Known Allergies REASON FOR VISIT [...] 025 Encounters Encounter Location Date Provider Diagnosis [facility] [place] [address] [place] [address] 12/01/2024 Adilene Ervin Other hammer toe(s) (acquired), [...] Reason: Provider Name:Adilene lane, 03/02/2025 09:15:00 AM, [address] [place] [address], [phone], Procedure Notes * Category Sub-Category Detail Notes [...] use of a nail nipper and/or dremel-type finish grinder, to a more viable healthy nail [...] to maintain effectiveness in symptomatic relief - 33034 Keratoma Treatment Parring or Cutting o f [...] instrumentation by the physician of record - 08423 Progress Notes * Peter BARRIOSB: 6 (69 yo M)Acc No.[id number]:12/01/2024 Progress Note Patient:?Peter BARRIOS Provider:?Adilene Ervin DPM :1955???Age:69 Y???Sex:Male Saran e:12/01/2024 Address:[address] [place], [place] [id number] Pcp:Lara Ojeda MD Subjective: * Chief Complaints: [...] use of a nail nipper and/or dremel-type finish grinder, to a more viable healthy nail [...] to maintain effectiveness in symptomatic relief - 15165.?Keratoma Treatment:?Parring or Cutting of Benign Hyperkeratotic Lesion(s)?(-56) [...] instrumentation by the physician of record - 53028.? * Procedure Codes:?75571 DEBRI DE NAIL, 6 OR MORE, Modifiers: XS 26376 TRIM SKIN LESIONS, 2 TO 4, Modifiers: [...] Provider:?Adilene Ervin, DPVikram Date:? Generated for Jerrell magallanes/Michelle/eTransmitting on:?01/15/2025 01:12 PM EDT History and Physical Notes * [...]
--- OUTSIDE RECORDS SUMMARY | 2025-01-15 13:12 | XMS_ITS | Patient Health Record ---
Author Organization [facility] [place] Address [address] [place] [address] Care Team Providers Care Backing In Machine Tender Name Role Phone Lynette HERNANDEZ, Lara Primary Care Provider Unavail able Adilene Ervin Unavailable [phone] Allergies No Known Allergies Results Component Value [...] Problem Acquired hammer toe of right foot (2437214466818876 ) Other hammer toe(s) (acquired), right foot (M20.41) Active confirmed Problem Acquired hammer toe of left foot (7454905668004693 ) Other hammer toe(s) (acquired), left foot (M20.42) Active confirmed Problem Polyneuropathy due to type 2 diabetes mellitus (408823310) Type 2 diabetes mellitus with diabetic polyneuropathy (E11.42) Active confirmed Vital Signs Blood pressure diastolic 75 mm Hg 12/01/2024 Height 5ft 9in in 12/01/2024 Blood pressure systolic 121 mm Hg 12/01/2024 Weight 240 lbs 12/01/2024 BMI 35.44 kg/m2 12/01/2024 Encounters Encounter Location Date Provider Diagnosis [address] [address] 09/01/2024 Adilene Ervin Type 2 diabetes mellitus with diabetic polyneuropathy E11.42 ; Other hammer toe(s) (acquired), right foot M20.41 ; Tinea unguium B35.1 ; Other hammer toe(s) (acquired), left foot M20.42 ; Diabetic peripheral vascular disease E11.51 and Ingrown nail L60.[address] [address] 12/01/2024 Adilene Ervin Other hammer toe(s) (acquired), right foot M20.41 ; Ingrown nail L60.0 ; Type 2 diabetes mellitus with diabetic polyneuropathy E11.42 ; Tinea unguium B35.1 ; Other hammer toe(s) (acquired), left foot M20.42 ; Diabetic peripheral vascular disease E11.51 ; Pain in right toe(s) M79.674 and Pain in left toe(s) M79.[address] [address] 08/15/2024 [facility] [address] [place] [address] 12/01/2024 Adilene Ervin Assessments Encounter Date Diagnosis [...] Provider Name:Adilene lane, 03/02/2025 09:15:00 AM, [address] [place], [address], Insurance Providers Payer Name Payer Address Payer Phone Subscriber Number Group Number Insured Name Patient Relationship to Insured Coverage Start Date Coverage End Date [employer] 65 Medicare Preferred [address] [place] [address] [id number] Peter Gates Self - patient is the insured Medical (General) History Medical History History ICD Code Arthritis Back,Hip,and Knee pain CAD (Cholesterol) covid-19 type II diabetes High Blood Pressure
== END 2025-01-15 14:18 | disposition home or self-care (01) ==
PROVIDERS: PCP Internal Medicine; Visit Provider Registered Nurse Emergency
DX: M54.16 Radiculopathy, lumbar region (principal)
CPT/HCPCS: 99213

== ENCOUNTER 2025-01-15 11:24 | Outpatient (REF) | payer MEDICARE, SELFPAY ==
--- NOTE | ~2025-01-15 | XR_ITS ---
EXAMINATION: X-ray lumbar spine 4 views.. CLINICAL INFORMATION: Dorsalgia, unspecified. TECHNIQUE: AP, obliques and lateral views lumbar spine.. COMPARISON: None FINDINGS: Endplate sclerosis and decreased intervertebral disc height at multiple levels more conspicuous at L5-S1. Grade 1 anterolisthesis L4-5. Facet joint hypertrophy at L4-5 and L5-S1. S-shaped curvature of the thoracolumbar spine. No lytic or blastic lesions. Vascular complications, aorta. XR/XR lumbar spine 4V min IMPRESSION: Multilevel lumbar spondylosis resulting in grade 1 anterolisthesis L4-5. Electronically signed by: Sherwin Knapp MD 01/15/2025 01:35 PM EDT
--- OUTSIDE RECORDS SUMMARY | 2025-01-15 14:39 | XMS_ITS | Clinical Summary ---
Author Organization [email or web address] Address [address] [facility] [address] [place] [address] Care Team Providers Care Foreign Service Officer Name Role Phone Unavailable Primary Care Provider [...]
== END 2025-01-15 11:25 | disposition home or self-care (01) ==
LOC: HO.HMGCX 11:24
PROVIDERS: PCP Internal Medicine; Visit Provider Registered Nurse Emergency
DX: M54.16 Radiculopathy, lumbar region (principal); M54.9 Dorsalgia, unspecified
CPT/HCPCS: 72110; 99212

== ENCOUNTER → 2025-01-15 13:19 | Outpatient (BNV) | payer MEDICARE, SELFPAY | PROVIDERS: PCP Internal Medicine; Visit Provider Radiology Diagnostic Radiology | DX: M47.816 Spondylosis without myelopathy or radiculopathy, lumbar region (principal) | CPT/HCPCS: 72110 ==

== ENCOUNTER 2025-01-18 08:49 | Outpatient (AMB) | payer MEDICARE, SELFPAY ==
--- NOTE | 2025-01-18 08:59 | MHC.PC.OV ---
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 Required: No Accompanied by: Spouse Allergies atorvastatin [From LIPITOR] Adverse Reaction (Severe, Verified 01/18/25 09:25) transaminitis Medication List - Last Reconciled 01/18/25 by Lara Lobo MD apixaban (Eliquis) 5 mg PO BID azelastine 1 spray intranasal BID 30 days baclofen 5 mg PO BID PRN blood sugar diagnostic ([employer] Surve[employer] GroupTouch Ultra Test strips) Use 1 test strips once a day blood-glucose meter ([email or web address] UltraMini kit) As directed blood-glucose meter (OneTouch Ultra2 Meter) As directed celecoxib (Celebrex) 50 mg PO BID coenzyme Q10 (CoQ-10) 100 mg PO DAILY hydrochlorothiazide 25 mg PO QAM lancets ([email or web address]ch UltraSoft Lancets) Use 1 lancet once a day lancets ([employer] Surveillance GroupTouch Delica Plus Lancet) Use 1 lancet once a day lovastatin 80 mg (2 x 40 mg) PO DAILY 90 days metformin 500 mg PO DAILY 90 days wf-ccm-dgeof-J2-qkuhhsg-sfzwql [id number] mcg (Centrum Silver Men) 1 tab PO DAILY prednisone 40 mg (2 x 20 mg) PO DAILY aaoqinct-xmgi-ynxcv-oreg-capry 100 mg-150 mg- 50 mg-150 mg 1 cap PO DAILY Tobacco use date assessed: 12/07/24 Dental Screening Dental Screen Date: 12/07/24 HPI HPI Comments History of Present Illness Details The patient is a 69-year-old male presenting with severe back pain which 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 Radiographic evaluation revealed multilevel spinal degeneration and arthritis. The patient received baclofen and prednisone initially, despite concerns of prednisone-induced hyperglycemia. Pain persists at a severe intensity level, disrupting basic functions such as walking and sitting. NSAIDs were paused due to anticoagulation therapy; however, the patient was allowed to resume Celebrex recently without significant relief noted. Pain is 10/10 in intensity. Radiates to the right leg. No bowel or bladder incontinence. On chronic anticoagulation due to left leg DVT. He has diabetes mellitus well control with an A1c within goal. Also has hypertension well controlled with medications and hyperlipidemia with an LDL goal that should be less than 70. [facility] Medical History Mild major depression Arthritis History of blood transfusion PENG on CPAP Obesity (BMI 30-39.9) Obesity due to excess calories with serious comorbidity Shoulder pain Former smoker Obese Essential hypertension Diabetes mellitus type 2 in obese Mixed hyperlipidemia Surgical History H/O colonoscopy History of skin cancer S/P ureteral reimplantation Family History Father Lung cancer Mother Diabetes Hypertension Stroke Social History Housing: House Alcohol intake: former Patient Tobacco Use Status: Current everyday Tobacco user Tobacco use type: Cigarette and Cigar Cigarettes Per Day: 2 e-Cigarette/Vaping Use: Never Used Second Hand Smoke Exposure: No Advance Directives Date on File: 06/17/20 service: No Current occupational status: unemployed Cognitive needs: No Hearing needs: Yes Vision needs: No Questionnaire Thrive Questionnaire Date Thrive assessed: 01/18/25 I am a: Patient What is your living situation today?: I have a steady place to live Within the past 12 months, did the food you bought not last and you didn't have the money to get more?: Never true Within the past 12 months, did you worry whether your food would run out before you got money to buy more?: Never true Do you have trouble paying for medicines?: No Do you have trouble getting transportation to medical appointments?: No Do you have trouble paying your heating and electricity bill?: No Do you have trouble taking care of your child, family member or friend?: No Do you have trouble with day-to-day activities such as bathing, preparing meals, shopping, managing finances, etc.?: Yes Are you currently unemployed and looking for a job?: No Are you interested in more education?: No Please select the resources that you would like help with: None Currently or been in a relationship where the following occur: No concerns reported THRIVE Score: 0 AUDIT C Alcohol Use Questionnaire (AUDIT-C) 1. How often do you have a drink containing alcohol?: Never Total Score: 0 NYDIA-7 AMB Questionnaire NYDIA-7 Date NYDIA - 7 assessed: 12/07/24 Feeling nervous, anxious, or on edge: 0 = Not at all Not being able to stop or control worryin = Not at all Worrying too much about different things: 0 = Not at all Trouble relaxin = Not at all Being so restless that it is hard to sit still: 3 = Nearly every day Becoming easily annoyed or irritable: 0 = Not at all Feeling afraid as if something awful might happen: 0 = Not at all Total NYDIA-7 score (0-4 normal; 5-9 mild; 10-14 moderate; 15-21 severe): 3 Source: Developed by Drs. Chas Calderon, Maggie Miranda, Manohar Hollingsworth and colleagues, with an educational douglas from [employer]. NYDIA-7 Assessment Billing NYDIA-7 Assessment Tool: NYDIA-7 Assessment 02507 Review of Systems Const All systems reviewed & are unremarkable except as noted in HPI and below Card Denies chest pain at rest, Denies chest pain with activity, Denies edema, Denies irregular heart rhythm, Denies claudication, Denies dyspnea, Denies dyspnea on exertion, Denies orthopnea, Denies paroxysmal nocturnal dyspnea and Denies slow heart rate Resp Denies cough, Denies dyspnea and Denies dyspnea on exertion GI Denies abdominal pain, Denies change in bowel habits, Denies excessive flatus, Denies nausea and Denies vomiting Denies urinary hesitancy, Denies urinary incontinence and Denies urinary urgency Musc Denies atrophy, Denies deformity and Denies limited range of motion Physical exam (Primary Care) Vital Signs: Last Vital Signs BP 128/74 01/18/25 09:00 BMI result Body Mass Index 36.0 BMI Assessment/Plan discussion: High BMI High, discussed plan: lifestyle, weight reduction, dietary and physical activity Tobacco/Smoking Status: Tobacco use Status Tobacco use date assessed 12/07/24 01/18/25 09:04 Patient Tobacco Use Status Current everyday Tobacco 01/18/25 09:04 Tobacco use type Cigarette,Cigar 01/18/25 09:04 e-Cigarette/Vaping Use Never Used 01/18/25 09:04 Thrive Assessment: Date of Thrive Assessment Date Thrive assessed 01/18/25 01/18/25 09:04 Currently or been in a relationship where the following occur: No concerns reported Const Limitations: ambulation with cane Resp Effort & Inspection: normal respiratory effort Auscultation: clear to auscultation bilaterally Cardio Jugular venous distension: no JVD Rate: regular rate Rhythm: regular rhythm Heart sounds: S1 normal heart sound present and S2 normal heart sound present Back/Spine/Pelvis Thoracic/Lumbar Spine: straight leg raise positive right at 30 degrees Extrem Left lower extremity: full ROM Coding Level of Care Code Est Pt Level 4 (27470) Complex EM visit Add On G2211 Diagnoses Lumbar radiculopathy M54.16 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 I82.512 Affected thrombotic vein of extremity: femoral Chronicity: chronic Diabetes mellitus type 2 in obese E11.69; E66.9 Essential hypertension I10 Mixed hyperlipidemia E78.2 Additional Codes NYDIA-7 Assessment Billing - NYDIA-7 Assessment Tool: NYDIA-7 Assessment 67616 ([id number]) Time Spent (min) 24 Assessment & Plan Assessment & Plan (1) Lumbar radiculopathy: Code(s): M54.16 - Radiculopathy, lumbar region Category: Medical (2) Left leg DVT: Code(s): I82.402 - Acute embolism and thrombosis of unspecified deep veins of left lower extremity Category: Medical Qualifiers: Affected thrombotic vein of extremity: femoral Chronicity: chronic Qualified Code(s): I82.512 - Chronic embolism and thrombosis of left femoral vein (3) Diabetes mellitus type 2 in obese: Code(s): E11.69 - Type 2 diabetes mellitus with other specified complication; E66.9 - Obesity, unspecified Category: Medical (4) Essential hypertension: Code(s): I10 - Essential (primary) hypertension Category: Medical (5) Mixed hyperlipidemia: Code(s): E78.2 - Mixed hyperlipidemia Category: Medical Plan The treatment involves initiating physical therapy to improve mobility and function, and considering a short-term opioid prescription for extreme back pain if other treatments remain ineffective. Careful management of constipation with a prescription regimen and ongoing monitoring of blood sugar levels given prednisone administration are crucial. Resuming Celebrex under guidance should continue to help the arthritis, with follow-ups to ensure effective pain control and to reassess therapy as necessary. Given the patient's current use of anticoagulation therapy, careful evaluation of pain management strategies must ensure minimal adverse interactions. Patient was informed and verbally consented to the use of an ambient scribe for clinic note documentation during this visit. I discussed extensively with the patient the nature of his spinal degeneration and arthritis, acknowledging the severe pain and the limited benefit of present pharmacologic measures. Multiple therapeutic interventions, including the resumption of Celebrex, were considered against existing anticoagulation therapy. I explained the possibility of opioid use for significant relief with clear communication of the associated risks, including constipation. Strategies for bowel management were reviewed thoroughly. I emphasized the merit of physical therapy as a long-term solution, despite the patient?s skepticism. I advised regular monitoring of blood sugar levels affected by steroid use. The patient and I agreed on a plan to try multiple approaches, reviewing progress at subsequent assessments to ensure efficacy and adapt treatment. Orders: Orders PT Evaluation and Treatment Today M54.16 - Radiculopathy, lumbar region Medications: New oxycodone Partial Fill upon patient request. 5 mg PO Q6H PRN 28 tabs 0RF pain 7 days Refilled lovastatin 80 mg (2 x 40 mg) PO DAILY 90 days 180 tabs 1RF E78.2 - Mixed hyperlipidemia lovastatin 80 mg (2 x 40 mg) PO DAILY 180 tabs 1RF 90 days E78.2 - Mixed hyperlipidemia Patient Instructions: - Engage in physical therapy sessions to manage back pain. - Take prescribed medications as directed. - Monitor blood sugar levels regularly, contact if significantly elevated. - Follow prescribed bowel regimen to counteract constipation. - Update me on any increase in pain severity or new symptoms. - Schedule follow-up appointments as advised to monitor response to treatment and adjust the plan if necessary.
[2025-01-18 09:00] VITALS: BP 128/74; BMI 36.0
--- OUTSIDE RECORDS SUMMARY | 2025-01-18 09:10 | XMS_ITS | Clinical Summary ---
Author Organization [employer] Address [address] [facility] [address] [facility] [address] [place] [address] Care Team Providers Care Quebracho Tanner Name Role Phone Unavailable Primary Care Provider [...]
== END 2025-01-18 09:38 | disposition home or self-care (01) ==
LOC: HO.HMCH 08:49
PROVIDERS: PCP Internal Medicine; Visit Provider Internal Medicine
DX: I82.512 Chronic embolism and thrombosis of left femoral vein (principal); E11.69 Type 2 diabetes mellitus with other specified complication; E66.9 Obesity, unspecified; Z68.36 Body mass index [BMI] 36.0-36.9, adult; M54.16 Radiculopathy, lumbar region; I10 Essential (primary) hypertension; E78.2 Mixed hyperlipidemia

== ENCOUNTER → 2025-01-18 08:49 | Outpatient (BNVA) | payer MEDICARE, SELFPAY | PROVIDERS: PCP Internal Medicine; Visit Provider Internal Medicine | DX: M54.16 Radiculopathy, lumbar region (principal); E78.5 Hyperlipidemia, unspecified; I82.512 Chronic embolism and thrombosis of left femoral vein; E11.69 Type 2 diabetes mellitus with other specified complication; E66.9 Obesity, unspecified; I10 Essential (primary) hypertension; E78.2 Mixed hyperlipidemia; Z68.36 Body mass index [BMI] 36.0-36.9, adult; Z79.899 Other long term (current) drug therapy; Z79.01 Long term (current) use of anticoagulants | CPT/HCPCS: 96127; 99212 ==

== ENCOUNTER 2025-04-12 10:00 | Outpatient (RCR) | payer MEDICARE, SELFPAY ==
--- NOTE | 2025-02-26 12:24 | MHC.PT.EP ---
[facility] [place] Office [place] Office [place] Office [address] Barry Reyes [address] [phone] F: [phone] F: [phone] F: [phone] F: [phone] Physical Therapy Plan of Care Date of Evaluation: 02/26/25 Date of Surgery: Diagnosis: lumbar radiculopathy Assessment: 69 y/o male with s/s consistent with lumbar radiculopathy with overlapping B hip/knee OA resulting in pain and difficulty with standing, sitting, walking, chores, yardwork, lifting, and sleeping. Of note pt with PMH significant for chronic DVT in L LE on Eliquis, HTN, and DM. Examination shows significantly impaired gait pattern, impaired lumbar/hip/knee ROM and strength, B lower leg edema (L LE > R), intact reflexes, (+) R SLR, pain, and impaired postural awareness. Recommend PT 2x/week for 6 weeks to address impairments, implement HEP, and optimize functional mobility. Educated pt on PT POC, HEP performing to tolerance, and pain modalities (TENS/ ice/ heat) Frequency and Duration: The patient will be seen 2x/week for 5 weeks Short Term Goals: 3 weeks I with HEP Pt will report 50% decrease in pain levels with functional mobility Account Manager Education Goals: 6 weeks I with HEP and self management of sx Pt will be able to walk > 30 min with pain < 3/10 Pt will be able to sit > 30 min with pain < 3/10 Treatment Plan: Modalities to reduce pain, spasms and effusion. Manual therapy to restore motion and function. Therapeutic exercise to improve strength and flexibility. Neuromuscular re-education for posture and balance. Therapeutic activities to return to functional activities of daily living. Electronically signed by: Charisma Wylie PT Please sign and return to therapist. Thank you for your referral.
--- NOTE | 2025-04-16 08:45 | MHC.PT.DC ---
[facility] [place] Office [place] Office [place] Office [address] Barry Reyes [address] [facility] [phone] F: [phone] F: [phone] F: [phone] F: [phone] Physical Therapy Discharge Report Diagnosis: lumbar radiculopathy Date of Surgery: Date of Evaluation: 02/26/25 Date of Discharge: 04/16/25 Treatments to Date: 11 Cancellations to Date: 0 No Shows to Date: 0 Discharge Status: Improved Function Independent with HEP Discharge Summary: Overall pt has made progress throughout course of PT with improved upright posture, smoother gait pattern, smoother transitional mobility, improved strength and I with HEP. Appropriate for d/c at this time Electronically signed by: Charisma Wylie PT Please sign and return to therapist. Thank you for your referral.
== END 2025-04-16 08:45 | disposition home or self-care (01) ==
LOC: HO.PT 10:00
PROVIDERS: PCP Internal Medicine; Visit Provider Internal Medicine
DX: M54.16 Radiculopathy, lumbar region (principal)
CPT/HCPCS: 97110; 97162; 97530

== ENCOUNTER 2025-05-28 10:20 | Outpatient (AMB) | payer MEDICARE, SELFPAY ==
[2025-05-28 10:33] VITALS: BP 130/80; PULSE 77; O2SAT 96; BMI 36.3
--- NOTE | 2025-05-28 10:33 | MHC.OFFVIS ---
Vital Signs 05/28/25 10:33 Height 5 ft 9 in Weight 245 lb 13.047 oz BMI 36.3 BP 130/80 Blood Pressure Location Lt brachial Position Sitting Pulse 77 Pulse Source Pulse Oximeter Pulse Oximetry (%) 96 Oxygen Delivery Method Room Air Intake Visit Reasons: Obstructive sleep apnea Intake Note: pt is here for hillary follow up and he had issues with use at times and now back on. Executive Admin Required: No Allergies atorvastatin (From LIPITOR) Adverse Reaction (Severe, Verified 05/28/25 10:42) transaminitis Medication List - Last Reconciled 05/28/25 by Mikayla Lobo MD apixaban (Eliquis) 5 mg PO BID azelastine 1 spray intranasal BID 30 days baclofen 10 mg PO TID 30 days blood sugar diagnostic ([employer]Touch Ultra Test strips) Use 1 test strips once a day blood-glucose meter ([employer]uch UltraMini kit) As directed blood-glucose meter ([employer] TechnologiesTouch Ultra2 Meter) As directed coenzyme Q10 (CoQ-10) 100 mg PO DAILY hydrochlorothiazide 25 mg PO QAM lancets ([employer]uch UltraSoft Lancets) Use 1 lancet once a day lancets ([employer] TechnologiesTouch Delica Plus Lancet) Use 1 lancet once a day lovastatin 80 mg (2 x 40 mg) PO DAILY 90 days metformin 500 mg PO DAILY 90 days ea-dca-xwbhv-U7-vbjezpd-xfkcgb 827-45-216-300 mcg (Centrum Silver Men) 1 tab PO DAILY xxgtwycd-uozw-umgjv-oreg-capry 100 mg-150 mg- 50 mg-150 mg 1 cap PO DAILY Do you need a note to return to daycare/school/sports/work: No HPI HPI Obstructive sleep apnea: Details: This 69 years old gentleman with moderate obesity, round face and obstructive sleep apnea, is here. For 6 months follow-up He missed using the CPAP for some nights because he had cold and nasal congestion. But now he is back to using it regularly. He claims that he does not sleep more than 4-5 hours per night but he keeps it on when sleeping. He has no issues. With the CPAP device are the CPAP mask Weight carrasco he has no change because he is not able to do any exercise or walking, For the diet he is a diabetic and tries to use low carb diet. [facility] Medical History Mild major depression Arthritis History of blood transfusion HILLARY on CPAP Obesity (BMI 30-39.9) Obesity due to excess calories with serious comorbidity Shoulder pain Former smoker Obese Essential hypertension Diabetes mellitus type 2 in obese Mixed hyperlipidemia Surgical History H/O colonoscopy History of skin cancer S/P ureteral reimplantation Family History Father Lung cancer Mother Diabetes Hypertension Stroke Social History Housing: House Alcohol intake: former Patient Tobacco Use Status: Current everyday Tobacco user Tobacco use type: Cigarette and Cigar Cigarettes Per Day: 2 e-Cigarette/Vaping Use: Never Used Second Hand Smoke Exposure: No Advance Directives Date on File: 06/17/20 service: No Current occupational status: unemployed Cognitive needs: No Hearing needs: Yes Vision needs: No Review of Systems Const All systems reviewed & are unremarkable except as noted in HPI and below Eyes Reports no additional complaints, Denies change in vision and Denies other visual disturbances ENT Reports nasal congestion (MILD INTERMITTENT) Card Denies chest pain at rest, Denies chest pain with activity, Denies edema, Denies irregular heart rhythm, Denies claudication, Denies dyspnea, Denies dyspnea on exertion, Denies orthopnea, Denies paroxysmal nocturnal dyspnea and Denies slow heart rate Resp Denies cough, Denies dyspnea, Denies dyspnea on exertion and Denies wheezing GI Denies abdominal pain, Denies change in bowel habits, Denies excessive flatus, Denies nausea and Denies vomiting Denies urinary hesitancy, Denies urinary incontinence and Denies urinary urgency Musc Denies abnormal gait, Denies atrophy, Denies deformity and Denies limited range of motion Skin/Breast Denies bleeding lesions, Denies changing lesions and Denies rash Neuro Denies abnormal gait and Denies lack of coordination Psych Reports no additional complaints Aller/Immun Denies wheezing Physical Exam Vital Signs: Last Vital Signs Pulse 77 05/28/25 10:33 BP 130/80 05/28/25 10:33 Pulse Ox 96 05/28/25 10:33 Oxygen Delivery Method Room Air 05/28/25 10:33 BMI result Body Mass Index 36.3 Const General: healthy appearing (Except for being overweight) and comfortable Orientation/consciousness: patient oriented x3 HEENT Head: Yes normal to inspection General nose exam: No nasal polyps present and No nasal discharge present Face and sinus: Yes sinuses nontender Mouth: oropharynx normal Throat: Yes posterior oropharynx normal Eyes General: appearance normal, both eyes and all related structures Neck Neck: Yes normal visual inspection, Yes no lymphadenopathy, Yes trachea midline and Yes no JVD Thyroid: Thyroid normal Chest Chest palpation & inspection: normal inspection of the chest, normal palpation of entire chest wall and no tenderness Resp Effort & Inspection: normal respiratory effort Auscultation: clear to auscultation bilaterally, no crackles and no wheezes Cardio Palpation: normal PMI Rate: regular rate Rhythm: regular rhythm Heart sounds: no gallops and no murmurs Peripheral pulses: Peripheral pulses 2+ throughout GI Palpation (GI): Soft to palpation, Tenderness to palpation present (GI), No hepatosplenomegaly present and Palpable mass present Auscultation: normal bowel sounds Back/Spine/Pelvis Thoracic/Lumbar Spine: thoracic and lumbar spine normal to inspection Skin General skin exam: no rashes or lesions noted Neuro General: patient oriented x3 and no focal motor deficits Cranial nerves: Yes CN's II-XII intact bilaterally Extrem General: Yes normal to inspection, Yes no clubbing, cyanosis or edema and Yes no calf tenderness Psych Speech and movement: Normal speech and movement present Results Reviewed Results Reviewed: Compliance report for the last 30 nights is reviewed. He used 26/30 nights. , 87% average use it per night 4 hours 20 minute. .There is minimal air leak Residual AHI is only 0.4 Assessment & Plan Assessment & Plan (1) Obesity (BMI 30-39.9): Comment: HE IS MODERATELY OBESE . WEIGHT HAS NOT CHANGED Code(s): E66.9 - Obesity, unspecified Category: Medical Plan: TALKED TO HIM ABOUT DIET AND HE IS ADMITS THAT HE TRIES TO STAY ON LOW CARB DIET, BECAUSE OF CHRONIC BACK PAIN AND LIMITED WALKING HE IS NOT ABLE TO DO MUCH EXERCISE. (2) HILLARY on CPAP: Comment: Known to have obstructive sleep apnea since 2014, after a home sleep study which showed obstructive sleep apnea. Has been compliant and benefiting. He has been using CPAP all these years very regularly. He did get new CPAP which is working fine. Usage is IN ACCEPTABLE RANGE. Code(s): G47.33 - Obstructive sleep apnea (adult) (pediatric); Z99.89 - Dependence on other enabling machines and devices Category: Medical Plan: I did instruct him to use for at least 5-6 hours per night. Coding Level of Care Code Est Pt Level 3 (31892) Diagnoses Obesity (BMI 30-39.9) E66.9 HILLARY on CPAP G47.33; Z99.89
--- OUTSIDE RECORDS SUMMARY | 2025-05-28 13:06 | XMS_ITS | Clinical Summary ---
Author Organization [employer] Address [address] [facility] [address] [place] [address] Care Team Providers Care Well Puller Head Name Role Phone Unavailable Primary Care Provider Unavailabl e Immunizations Immunization Administration Dates Next Due Influenza, seasonal, injectable, [...] COVID-19 Vaccine ( - 2023-2 5 season) 2025 Influenza Vaccine (#1) 2025 06/05/2024 RSV Patients and Pa tients Aged 60 years or older (1 - 1-dose 75+ series) 2030 HIB Vaccines Aged Out No longer eligi [...] patient's age to complete this topic Meningococcal B Vaccine Aged Out No l onger eligible based on patient's age to complete [...]
--- OUTSIDE RECORDS SUMMARY | 2025-05-28 13:06 | XMS_ITS | Patient Health Record ---
Author Organization [facility] [place] Address [address] [place] [address] Care Team Providers Care Emergency Communications Dispatcher Name Role Phone Lynette HERNANDEZ, Lara Primary Care Provider Unavail able Adilene Ervin Unavailable [phone] Allergies No Known Allergies Results Component Value Reference Range Notes HEMOGLOBIN A1C (GLYCOHEMOGLO BIN) Reviewed date:09/01/2024 08:28:07 AM Interpretation: Performing Lab: Notes/Report: TOTAL HEMOGLOBIN (HGBA1C) 4.9 HEMOGLOBIN A1C (GLYCOHEMOGLO BIN) Reviewed date:12/01/2024 09:00:02 AM Interpretation: Performing Lab: Notes/Report: HEMOGLOBIN A1C % (HH) 5.4 Reason For Referral No Information Medications Medication SIG (Take, Route, Frequency, Duration) Notes Start Date End Date Status Extra Depth Orthopedic Shoes (1 Pair) with Customized Heat Molded Multidensity Innersoles (3 Pair) as directed Dx: NIDDM/Polyneuropathy (E11.42), Hammertoe Foot Deformity (M20.41,M20.42), Preulcerative Skin Lesion(s) (L85.1 Active Azelastine HCl Activ e CeleBREX Active hydroCHLOROthiazide Active Eliquis Active Lovastatin Active metFORMIN HCl Active Baclofen Active Immunizations Vaccine Route Administration Date Status Comme nts Influenza Unknown 05/14/2024 Administered Social History Tobacco Use: Social History Observation [...] Problem Acquired hammer toe of right foot (8115412457384664 ) Other hammer toe(s) (acquired), right foot (M20.41) Active confirmed Problem Acquired hammer toe of left foot ([id number] ) Other hammer toe(s) (acquired), left foot (M20.42) Active confirmed Problem Polyneuropathy due to type 2 diabetes mellitus (729620031) Type 2 diabetes mellitus with diabetic polyneuropathy (E11.42) Active confirmed Vital Signs Blood pressure diastolic 72 mm Hg 03/02/2025 Height 5ft9in in 03/02/2025 Blood pressure systolic 120 mm Hg 03/02/2025 Weight 240 lbs 03/02/2025 BMI 35.44 kg/m2 03/02/2025 Encounters Encounter Location Date Provider Diagnosis [address] [address] 09/01/2024 Adilene Ervin Type 2 diabetes mellitus with diabetic polyneuropathy E11.42 ; Other hammer toe(s) (acquired), right foot M20.41 ; Tinea unguium B35.1 ; Other hammer toe(s) (acquired), left foot M20.42 ; Diabetic peripheral vascular disease E11.51 and Ingrown [facility] L60.0 [facility] [address] 12/01/2024 Adilene Ervin Other hammer toe(s) (acquired), right foot M20.41 ; Ingrown nail L60.0 ; Type 2 diabetes mellitus with diabetic polyneuropathy E11.42 ; Tinea unguium B35.1 ; Other hammer toe(s) (acquired), left foot M20.42 ; Diabetic peripheral vascular disease E11.51 ; Pain in right toe(s) M79.674 and Pain in left toe(s) M79.675 [facility] [address] [address] 03/02/2025 Adilene Arcadio Ingrown nail L60.0 ; Type 2 diabetes mellitus with diabetic polyneuropathy E11.42 ; Tinea unguium B35.1 ; Diabetic peripheral vascular disease E11.51 ; Pain in left toe(s) M79.675 and Contusion of left great toe with damage to nail, initial encounter S90.212A [facility] [address] [address] 08/15/2024 Adilene Ervin [facility] [address] 12/01/2024 Adilene Ervin Assessments Encounter Date Diagnosis (ICD Code) Assessment Notes Treatment Notes Treatment Clinical Notes Section Notes 03/02/2025 Type 2 diabetes mellitus with diabetic polyneuropathy (ICD-10 - E11.42) 03/02/2025 Ingrown nail (ICD-10 - L60.0) 12/01/2024 Other hammer toe(s) (acquired), right foot (ICD-10 - M20.41) Patient Educated with: DIABETIC FOOT CARE INSTRUCTIONS. pdf (DIABETIC FOOT CARE INSTRUCTIONS. pdf) 12/01/2024 Ingrown nail (ICD-10 - L60.0) 09/01/2024 Other hammer toe(s) (acquired), right foot (ICD-10 - M20.41) Patient Educated with: DIABETIC FOOT CARE INSTRUCTIONS. pdf (DIABETIC FOOT CARE INSTRUCTIONS. pdf) 09/01/2024 Type 2 diabetes mellitus with diabetic polyneuropathy (ICD-10 - E11.42) 09/01/2024 Tinea unguium (ICD-10 - B35.1) 12/01/2024 Type 2 diabetes mellitus with diabetic polyneuropathy (ICD-10 - E11.42) 03/02/2025 Tinea unguium (ICD-10 - B35.1) 03/02/2025 Diabetic peripheral vascular disease (ICD-10 - E11.51) 12/01/2024 Tinea unguium (ICD-10 - B35.1) 09/01/2024 Other hammer toe(s) (acquired), left foot (ICD-10 - M20.42) 12/01/2024 Other hammer toe(s) (acquired), left foot (ICD-10 - M20.42) 03/02/2025 Pain in left toe(s) (ICD-10 - M79.675) 09/01/2024 Diabetic peripheral vascular disease (ICD-10 - E11.51) 03/02/2025 Contusion of left great toe with damage to nail, initial encounter (ICD-10 - S90.212A) 09/01/2024 Ingrown nail (ICD-10 - L60.0) 12/01/2024 Diabetic peripheral vascular disease (ICD-10 - E11.51) 12/01/2024 Pain in right toe(s) (ICD-10 - M79.674) 12/01/2024 Pain in left toe(s) (ICD-10 - M79.675) 03/02/2025 Other Plan Of Treatment Next Appt Details Provider Name:Adilene lane, 06/06/2025 09:15:00 AM, [address] [place], [address], Insurance Providers Payer Name Payer Address Payer Phone Subscriber Number Group Number Insured Name Patient Relationship to Insured Coverage Start Date Coverage End Date [facility] 65 Medicare [address] [place] [address] [id number] Peter Gates Self - patient is the insured Medical (General) History Medical History History ICD Code Arthritis Back,Hip,and Knee pain CAD (Cholesterol) covid-19 type II diabetes High Blood Pressure
== END 2025-05-28 10:50 | disposition home or self-care (01) ==
LOC: HO.HPS 10:20
PROVIDERS: PCP Internal Medicine; Visit Provider Internal Medicine
DX: E66.9 Obesity, unspecified (principal); G47.33 Obstructive sleep apnea (adult) (pediatric); Z99.89 Dependence on other enabling machines and devices
CPT/HCPCS: 99213

== ENCOUNTER → 2025-05-28 10:20 | Outpatient (BNVA) | payer MEDICARE, SELFPAY | PROVIDERS: PCP Internal Medicine; Visit Provider Internal Medicine | DX: G47.33 Obstructive sleep apnea (adult) (pediatric) (principal); E66.9 Obesity, unspecified; Z99.89 Dependence on other enabling machines and devices | CPT/HCPCS: 99212 ==

== ENCOUNTER 2025-06-08 10:16 | Outpatient (REF) | payer MEDICARE, SELFPAY ==
--- OUTSIDE RECORDS SUMMARY | 2025-06-06 05:15 | XMS_ITS ---
Author Organization [facility] [place] Address [address] [place] [address] Care Team Providers Care Cashier Payments Received Name Role Phone Lynette HERNANDEZ, Lara Primary Care Provider Unavail able Adilene Ervin Unavailable [phone] Allergies No Known Allergies REASON FOR VISIT [...] Risk Notes Problem Diabetic peripheral vascular disease (388967025) Diabetic peripheral vascular disease (E11.51) Active confirmed Vital Signs Height 5ft 9in in 06/06/2025 Weight 240 lbs 06/06/2025 BMI 35.44 kg/m2 06/06/2025 Blood pressure systolic 120 mm Hg 06/06/20 25 Blood pressure diastolic 72 mm Hg 025 Encounters Encounter Location Date Provider Diagnosis [facility] [address] [place] [address] 06/06/2025 Adilene Ervin Ingrown nail L60.0 ; [...] Name:Adilene Lane Nayeli lane, 09/05/2025 10:00:00 AM, [address] [place] [address], [phone], Procedure Notes * Category Sub-Category Detail Notes [...] future surgical procedures to prevent recurrence - 25446/32 Anesthesia was deferred - NEURO AMY: patient [...] use of a nail nipper and/or dremel-type tooth grinder, to a more viable healthy nail [...] to maintain effectiveness in symptomatic relief - 96120 Keratoma Treatment Parring or Cutting o f [...] instrumentation by the physician of record - 70488 Progress Notes * Peter BARRIOSDOB: 6 (69 yo M)Acc No.[id number]:06/06/2025 Progress Note Patient: Peter MCNAIR Provider: Marybeth Ervin DPM :1955 A ge:69 Y S ex:Male Date:06/06/2025 Address:[address] [place], [place] Pcp:Lara Ojeda MD Subjective: * Chief Complaints: [...] ardiovascular: Pacemaker d enies, denies, denies. 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 W PW d [...] an absence of tested sensitivity to 5.07 Auburn-Katelynn monofilament at 2 or more sites out [...] of a nail nipper and/or dremel- type tooth grinder, to a more viable healthy nail [...] to maintain effectiveness in symptomatic relief - 00752. K eratoma Treatment: Parring or Cutting of [...] instrumentation by the physician of record - 18582. N ail Avulsion: Location L ateral nail [...] future surgical procedures to prevent recurrence - . * Procedure Codes: 1 1721 DEBRIDE NAIL, 6 OR MORE, Modifiers: XS 89156 Avulsion Plate, Modifiers: XS , [id number] Avulsion Plate Each Additional, Modifiers: XS , [id number] TRIM SKIN LESIONS, 2 TO 4, Modifiers: [...] Date: 06/06/2025 Generated for Jerrell magallanes/Michelle/Adrienne on: 06/08/2025 11:32 AM EDT History and Physical Notes * [...] an absence of tested sensitivity to 5.07 Auburn-Katelynn monofilament at 2 or more sites out [...]
--- NOTE | ~2025-06-08 | US_ITS ---
EXAMINATION: US TRIPLEX LOWER EXTREMITY, LEFT CLINICAL INFORMATION: History of DVT, on Eliquis COMPARISON: 04/21/2024 TECHNIQUE: Color-flow triplex imaging with spectral analysis and compression Doppler were performed on the left lower extremity. FINDINGS: The common femoral vein is patent with normal respiratory variability. The superficial femoral vein contains low level echogenicity with absent flow proximal to distal. Popliteal vein is partially occluded with decreased flow. The deep femoral vein, peroneal vein, and posterior tibial veins are patent with flow. US/US venous duplex LE IMPRESSION: Occlusive thrombus is present throughout the superficial femoral vein which is a deep vein. Nonocclusive thrombus is present in the popliteal vein. Age-indeterminate DVT, chronic and/or acute. Electronically signed by: Carlos Ramos MD 06/08/2025 11:09 AM EDT
--- OUTSIDE RECORDS SUMMARY | 2025-06-08 11:32 | XMS_ITS | Clinical Summary ---
Author Organization [facility] Address [address] [place] [address] Care Team Providers Care Fancy Wire Drawer Name Role Phone Unavailable Primary Care Provider [...]
--- OUTSIDE RECORDS SUMMARY | 2025-06-08 11:32 | XMS_ITS | Patient Health Record ---
Author Organization [facility] [place] Address [address] [place] [address] Care Team Providers Care Crew Chief Name Role Phone Lynette HERNANDEZ, Lara Primary Care Provider Unavail able Adilene Ervin Unavailable [phone] Allergies No Known Allergies Results Component Value Reference Range Notes HEMOGLOBIN A1C (GLYCOHEMOGLO BIN) Reviewed date:09/01/2024 08:28:07 AM Interpretation: Performing Lab: Notes/Report: TOTAL HEMOGLOBIN (HGBA1C) 4.9 HEMOGLOBIN A1C (GLYCOHEMOGLO BIN) Reviewed date:12/01/2024 09:00:02 AM Interpretation: Performing Lab: Notes/Report: HEMOGLOBIN A1C % (HH) 5.4 Reason For Referral No Information Medications Medication SIG (Take, Route, Frequency, Duration) Notes Start Date End Date Status Baclofen Active metFORMIN HCl Active hydroCHLOROthiazide Active CeleBREX Active Azelastine HCl Activ e Extra Depth Orthopedic Shoes (1 Pair) with Customized Heat Molded Multidensity Innersoles (3 Pair) as directed Dx: NIDDM/Polyneuropathy (E11.42), Hammertoe Foot Deformity (M20.41,M20.42), Preulcerative Skin Lesion(s) (L85.1 Active Lovastatin Active Eliquis Active Immunizations Vaccine Route Administration Date Status [...] Problem Acquired hammer toe of right foot (6590408734104556 ) Other hammer toe(s) (acquired), right foot (M20.41) Active confirmed Problem Acquired hammer toe of left foot (3460970166470024 ) Other hammer toe(s) (acquired), left foot (M20.42) Active confirmed Problem Polyneuropathy due to type 2 diabetes mellitus (511668001) Type 2 diabetes mellitus with diabetic polyneuropathy (E11.42) Active confirmed Problem Diabetic peripheral vascular disease (652603921) Diabetic peripheral vascular disease (E11.51) Active confirmed Vital Signs Blood pressure diastolic 72 mm Hg 06/06/2025 Height 5ft 9in in 06/06/2025 Blood pressure systolic 120 mm Hg 06/06/2025 Weight 240 lbs 06/06/2025 BMI 35.44 kg/m2 06/06/2025 Encounters Encounter Location Date Provider Diagnosis [facility] [address] [address] 09/01/2024 Adilene Ervin Type 2 diabetes mellitus with diabetic polyneuropathy E11.42 ; Other hammer toe(s) (acquired), right foot M20.41 ; Tinea unguium B35.1 ; Other hammer toe(s) (acquired), left foot M20.42 ; Diabetic peripheral vascular disease E11.51 and Ingrown nail L60.0 [facility] [address] [address] 12/01/2024 Adilene Ervin Other hammer toe(s) (acquired), right foot M20.41 ; Ingrown nail L60.0 ; Type 2 diabetes mellitus with diabetic polyneuropathy E11.42 ; Tinea unguium B35.1 ; Other hammer toe(s) (acquired), left foot M20.42 ; Diabetic peripheral vascular disease E11.51 ; Pain in right toe(s) M79.674 and Pain in left toe(s) M79.[address] [address] 03/02/2025 Adilene Perica Ingrown nail L60.0 ; Type 2 diabetes mellitus with diabetic polyneuropathy E11.42 ; Tinea unguium B35.1 ; Diabetic peripheral vascular disease E11.51 ; Pain in left toe(s) M79.675 and Contusion of left great toe with damage to nail, [facility] [address] 06/06/2025 Adilene Perica Ingrown nail L60.0 ; Type 2 diabetes mellitus with diabetic polyneuropathy E11.42 ; Tinea unguium B35.1 and Diabetic peripheral vascular disease E11.[address] [address] 08/15/2024 Adilene Ervin [address] [address] 12/01/2024 Adilene Ervin Assessments Encounter Date Diagnosis [...] pdf) 12/01/2024 Ingrown nail (ICD-10 - L60.0) 03/02/2025 Type 2 diabetes mellitus with diabetic polyneuropathy (ICD-10 - E11.42) 03/02/2025 Ingrown nail (ICD-10 - L60.0) 06/06/2025 Type 2 diabetes mellitus with diabetic polyneuropathy (ICD-10 - E11.42) 06/06/2025 Ingrown nail (ICD-10 - L60.0) 06/06/2025 Tinea unguium (ICD-10 - B35.1) 03/02/2025 Tinea unguium (ICD-10 - B35.1) 12/01/2024 Type 2 diabetes mellitus with diabetic polyneuropathy (ICD-10 - E11.42) 09/01/2024 Tinea unguium (ICD-10 - B35.1) 09/01/2024 Other hammer toe(s) (acquired), left foot (ICD-10 - M20.42) 12/01/2024 Tinea unguium (ICD-10 - B35.1) 03/02/2025 Diabetic peripheral vascular disease (ICD-10 - E11.51) 06/06/2025 Diabetic peripheral vascular disease (ICD-10 - E11.51) 12/01/2024 Other hammer toe(s) (acquired), left foot [...] Treatment Next Appt Details Provider Name:Adilene lane, 09/05/2025 10:00:00 AM, [address] [facility], [place], [address], Insurance Providers Payer Name Payer Address Payer Phone Subscriber Number Group Number Insured Name Patient Relationship to Insured Coverage Start Date Coverage End Date BlueCare 65 Medicare Preferred [address] [place] [address] [id number] Peter Gates Self - patient is the insured Medical (General) History Medical History History ICD Code Arthritis Back,Hip,and Knee pain CAD (Cholesterol) covid-19 type II diabetes High Blood Pressure Back pain nerve damage Surgical History Surgery Date(Month/Year) bladder surgery 1967
== END 2025-06-08 10:17 | disposition home or self-care (01) ==
LOC: HO.HMGCX 10:16
PROVIDERS: PCP Internal Medicine; Visit Provider Internal Medicine Medical Oncology
DX: I82.402 Acute embolism and thrombosis of unspecified deep veins of left lower extremity (principal)
CPT/HCPCS: 93971

== ENCOUNTER → 2025-06-08 10:33 | Outpatient (BNV) | payer MEDICARE, SELFPAY | PROVIDERS: PCP Internal Medicine; Visit Provider Radiology Diagnostic Radiology | DX: I82.512 Chronic embolism and thrombosis of left femoral vein (principal); I82.532 Chronic embolism and thrombosis of left popliteal vein | CPT/HCPCS: 93971 ==

== ENCOUNTER 2025-06-11 09:15 | Outpatient (REF) | payer MEDICARE, SELFPAY ==
--- NOTE | ~2025-06-11 | XR_ITS ---
EXAMINATION: XR ANKLE, RIGHT CLINICAL INFORMATION: M25.571 - Pain in right ankle and joints of right foot COMPARISON: None available. TECHNIQUE: AP, lateral, and mortise views of the right ankle. FINDINGS: No acute cortical disruption or malalignment. Degenerative changes in the medial malleolus. No subcutaneous emphysema. No soft tissue contusion/edema pattern. No gross joint effusion the anterior tibiotarsal bursa. No lytic or blastic lesions. 2 mm spur, plantar calcaneus. Vascular calcifications.. XR/XR ankle RT 2V IMPRESSION: Degenerative changes without acute fracture or dislocation. Atherosclerosis disease, peripheral. Electronically signed by: Sherwin Knapp MD 06/11/2025 11:04 AM EDT
== END 2025-06-11 09:16 | disposition home or self-care (01) ==
LOC: HO.XRAY 09:15
PROVIDERS: PCP Internal Medicine; Visit Provider Internal Medicine
DX: M25.571 Pain in right ankle and joints of right foot (principal); I82.512 Chronic embolism and thrombosis of left femoral vein; E78.2 Mixed hyperlipidemia; E11.69 Type 2 diabetes mellitus with other specified complication; E66.9 Obesity, unspecified; G47.33 Obstructive sleep apnea (adult) (pediatric); Z79.01 Long term (current) use of anticoagulants; Z79.84 Long term (current) use of oral hypoglycemic drugs; Z79.899 Other long term (current) drug therapy; Z99.89 Dependence on other enabling machines and devices; Z68.35 Body mass index [BMI] 35.0-35.9, adult
CPT/HCPCS: 73600; 83036; 99212

== ENCOUNTER 2025-06-11 09:15 | Outpatient (AMB) | payer MEDICARE, SELFPAY ==
--- OUTSIDE RECORDS SUMMARY | 2025-06-06 05:15 | XMS_ITS ---
Author Organization [facility] [place] Address [address] [facility] [place] [address] Care Team Providers Care Glazier Artist Name Role Phone Lynette HERNANDEZ, Lara Primary Care Provider Unavail able Adilene Ervin Unavailable [phone] Allergies No Known Allergies REASON FOR VISIT At Risk Footcare, Ingrown nail(s) Medications Medication SIG (Take, Route, Frequency, Duration) Notes Start Date End Date Status metFORMIN HCl Active Azelastine HCl Activ e Extra Depth Orthopedic Shoes (1 Pair) with Customized Heat Molded Multidensity Innersoles (3 Pair) as directed Dx: NIDDM/Polyneuropathy (E11.42), Hammertoe Foot Deformity (M20.41,M20.42), Preulcerative Skin Lesion(s) (L85.1 Active Lovastatin Active Eliquis Active Baclofen Active hydroCHLOROthiazide Active CeleBREX Active Social History Tobacco Use: Social History [...] Problem Status W/U Status Risk Notes Problem Diabetic peripheral vascular disease (573532652) Diabetic peripheral vascular disease (E11.51) Active confirmed Vital Signs Blood pressure systolic 120 mm Hg 06/06/20 25 Blood pressure diastolic 72 mm Hg 025 Height 5ft 9in in 06/06/2025 Weight 240 lbs 06/06/2025 BMI 35.44 kg/m2 06/06/2025 Encounters Encounter Location Date Provider Diagnosis [facility] [address] [place] [address] 06/06/2025 Adilene Ervin Ingrown nail L60.0 ; Type 2 diabetes mellitus with diabetic polyneuropathy E11.42 ; Tinea unguium B35.1 and Diabetic peripheral vascular disease E11.51 Assessments Encounter Date Diagnosis (ICD Code) Assessment Notes Treatment Notes Treatment Clinical Notes Section Notes 06/06/2025 Ingrown nail (ICD-10 - L60.0) 06/06/2025 Type 2 diabetes mellitus with diabetic polyneuropathy (ICD-10 - E11.42) 06/06/2025 Tinea unguium (ICD-10 - B35.1) 06/06/2025 Diabetic peripheral vascular disease (ICD-10 - E11.51) Plan Of Treatment Next Appt Details Follow Up: 3 Months, Reason: Provider Name:Adilene Lane Nayeli lane, 09/05/2025 10:00:00 AM, [address] [place] [address], [address], Procedure Notes * Category Sub-Category Detail Notes Nail Avulsion Procedure A fine sterile e levator was placed between the eponychium, nail fold, and nail plate to separate the the structures. A sterile nail splitter, and/or sterile 316 blade, was then used to longitudinally section the nail along its entire length through the eponychium to the area under the nail fold. The offending portion of each nail was from the nail bed with a rolling action and then removed with a hemostat. No underlying bone was identified. There was minimal bleeding as hemostasis was achieved through use of either a digital tournaquet or the aforementioned local with epinephrine. A bacitracin sterile dressing was applied. Local wound aftercare instructions were discussed and dispensed. The patient was informed of both conservative and future surgical procedures to prevent recurrence - 35937/32 Anesthesia was deferred - NEURO AMY: patient has medically documented neuropathic condition affecting sensation Location Lateral nail border, TA, T5 Debride Nail 6-10 Nail debridement Due to [...] use of a nail nipper and/or dremel-type carbide grinder, to a more viable healthy nail [...] to maintain effectiveness in symptomatic relief - 81949 Keratoma Treatment Parring or Cutting o f [...] stated and described in the exam ( Medial plantar, IPJ, T5, TA, Plantar, T3), were pared, and/or cut utilizing a sterile 15 blade, tissue nippers, and/or power dremel instrumentation by the physician of record - 16972 Progress Notes * Peter BARRIOSDOB: 6 (69 yo M)Acc No.[id number]:06/06/2025 Progress Note Patient: Peter MCNAIR Provider: Marybeth Ervin DPM :1955 A ge:69 Y S ex:Male Date:06/06/2025 Address:[address] [place], [place] Pcp:Lara Ojeda MD Subjective: * Chief Complaints: * A t Risk FootcareIngrown nail(s) * HPI: A t Risk footcare: Pt States Last PCP Visit: D ate 0 05/22/2025 * ROS: G eneral/Constitutional: Nausea d enies, denies, denies. V omiting d enies, denies, denies. H clover Thirst d enies, denies, denies. L oss appetite d enies, denies, denies. C hills d enies, denies, denies. F atigue d enies, denies, denies. F ever d enies, denies, denies. N ight Sweats d enies, denies, denies. U nexplained weight loss d enies, denies, denies. U nexplained weight gain d enies, denies, denies.? H EENTM: Dentures d enies, denies, denies. D izziness d enies, denies, denies. G lasses/contacts d enies, denies, denies. R etinopathy d enies, denies, denies. B lurred/double vision d enies, denies, denies. T MJ d enies, denies, denies. D ischarge/drainage d enies, denies, denies. I mplants d enies, denies, denies. S ore throat d enies, denies, denies. D ental implants d enies, denies, denies. H martin of hearing d enies, denies, denies. D ifficulty chewing/swallowing/speaking denies, denies, denies. N ose bleeds d enies, denies, denies. S ore mouth d enies, denies, denies. R espiratory: On Oxygen d enies, denies, denies. P neumonia/pleurisy?denies, denies, denies. B ronchitis d enies, denies, denies. E mphysema d enies, denies, denies. C oughing d enies, denies, denies. C ough blood d enies, denies, denies. S hortness of breath d enies, denies, denies. W heezing d enies, denies, denies. C ardiovascular: Pacemaker d enies, denies, denies. M FLIGHT RADIO OFFICER d enies, denies, denies. W PW d enies, denies, denies. C HF d enies, denies, denies. H eart attack d enies, denies, denies. S eptal defect d enies, denies, denies. R apid beat denies, denies, denies. C hest pain d enies, denies, denies. A trial Fib. d enies, denies, denies. M urmur/Palpitations d enies, denies, denies. G astrointestinal: Hemorrhoids d enies, denies, denies. S tomach/Abdominal pain d enies, denies, denies. D ark blood stool d enies, denies, denies. I rritable bowel d enies, denies, denies. C onstipation d enies, denies, denies. D iarrhea?denies, denies, denies. H ematology: Swelling d enies, denies, denies. C lots d enies, denies, denies. V aricose Veins d enies, denies, denies. B ruising d enies, denies, denies. B leeding problem d enies, denies, denies. G enitourinary: Blood urine d enies, denies, denies. F requent/Painfu/urination/bladder control d enies, denies, denies. K idney stones d enies, denies, denies. I nfection (UTI) d enies, denies, denies. N ephropathy d enies, denies, denies. sex trans dis (STD) d enies, denies, denies. P rostate d enies, denies, denies. ? M usculoskeletal: Hammertoes d enies, denies, denies. B unions d enies, denies, denies. B ack Pain d enies, denies, denies. M uscle Cramps/ Resting d enies, denies, denies. M uscle cramps / walking d enies, denies, denies. G eneralized aches and pains d enies, denies, denies. W eakness d enies, denies, denies. I nteg.: Juares d enies, denies, denies. S cars d enies, denies, denies. C orns/calluses d enies, denies, denies. I ngrown nails a dmits, admits, admits. P ainful nails d enies, denies, denies. O pen Sores d enies, denies, denies. R ashes d enies, denies, denies. N eurologic: Difficulty sleeping d enies, denies, denies. B rain disorder d enies, denies, denies. N umbness d enies, denies, denies. B alance trouble?denies, denies, denies. C onfusion d enies, denies, denies. F ainting/blackouts d enies, denies, denies. T ingling d enies, denies, denies. T remors d enies, denies, denies. * Medical History: * Surgical History: b ladder surgery 1966 * Hospitalization/Major Diagno stic Procedure: D enies Past Hospitalization * Family History: M other: , diagnosed with Other malignant neoplasm of unspecified site, Diabetic - NIDDM, Unspecified essential hypertension, Unspecified heart disease, Unspecified cerebral artery occlusion with cerebral infarction. F ather: . M aternal Grand Father: diagnosed with Unspecified essential hypertension. * Social History: T obacco Use: T obacco use other than smoking A re you an other tobacco user? Y es Tobacco Control (Standard) T obacco use: C urrent smoker H ow often do you smoke cigarettes? E very day H ow many cigarettes a day do you smoke? 5 or less H ow soon after you wake up do you smoke your first cigarette? 6 -30 minutes A re you interested in quitting? N ot ready to quit M iscellaneous: C affeine: yes, 1-2 cups per day. Children: yes, 3. Exercise: no. Marital status: . Occupation: retired. D rug/Alcohol: A HARPREET-C (Standard) D id you have a drink containing alcohol in the past year? N o P oints 0 I nterpretation N egative * Medications: T akinghydroCHLOROthiazide CeleBREX Baclofen metFORMIN HCl Lovastatin Eliquis Azelastine HCl Extra Depth Orthopedic Shoes (1 Pair) with Customized Heat Molded Multidensity Innersoles (3 Pair) as directed Dx: NIDDM/Polyneuropathy (E11.42), Hammertoe Foot Deformity (M20.41,M20.42), Preulcerative Skin Lesion(s) (L85.1 Medication List reviewed and reconciled with the patientTaking hydroCHLOROthiazide Taking CeleBREX Taking Baclofen Taking metFORMIN HCl Taking Lovastatin Taking Eliquis Taking Azelastine HCl Taking Extra Depth Orthopedic Shoes (1 Pair) with Customized Heat Molded Multidensity Innersoles (3 Pair) as directed Dx: NIDDM/Polyneuropathy (E11.42), Hammertoe Foot Deformity (M20.41,M20.42), Preulcerative Skin Lesion(s) (L85.1 Medication List reviewed and reconciled with the patient * Allergies: N .K.D.A.yes[Allergies Verified] Objective: * Vitals: H t: 5ft 9in, Wt:240, BMI:35.44, Shoe size: 12w, BP:120/72mm Hg, BS: 110, Ht-cm: 175.26 cm, Wt-k.86 kg. * P ast Orders: L ab:HEMOGLOBIN A1C (GLYCOHEMOGLOBIN) (Order Date - 09/13/2024) (Collection Date & Time - 12/01/2024 08:59 AM) Value Reference Range HEMOGLOBIN A1C % (HH) 5.4 * Examination: O phthalmology Referral: DIABETES EYE EXAM P rocedure Performed: Y alexandru D ate of Exam Performed 0 05/01/2025 D iabetic Retinopathy Screening: Y es F indings of Diabetic Eye Exam: n o retinopathy N eurological: SENSORY: ( Neuro) Neurological exam demonstrates a loss of protective sensation by an absence of tested sensitivity to 5.07 Tony-Katelynn monofilament at 2 or more sites out of 5 total locations, each foot. N ails: NAILS are: E longated, overgrown, dystrophic, lytic, greater than 3mm thick, discolored and friable with crumbly malodorous subungual debris, with dull to no pain on palpation due to neuropathy, TA, T1, T2, T3, T4, T5, T6, T7, T8, T9. D ermatologic: SKIN FINDINGS: S kin exam reveals Keratotic lesion(s) located at, Medial plantar, IPJ, T5, TA, Plantar, T3. V ascular: DP PULSES (B): 0 /4, LEFT, 1/4, RIGHT. PT PULSES (B): 0 /4, L EFT, 1 /4, R IGHT. CAPILLARY FILL TIME: 4 secs. per digit. TROPHIC CONDITION-TEXTURE/ELASTICITY/TURGOR/HAIR GROWTH (B):?with sparse to absent hair growth, B/L. TEMPERTURE GRADIENT (C): d ecreased, cool to cool, proximal to distal, B/L. PIGMENTATION: p reji, B/L. EDEMA (C): a bsent, B/L. O rthopedic: MUSCLE STRENGTH: 5 /5 all groups in a symmetrical fashion, B/L. DIGITAL DEFORMITIES: D igital contracture, PIPJ, 2-5 B/L, incompl-reducible to push-up test, no over, nor underlapping, t here is e vidence of shoe producing skin irritation. FOOTWEAR EVALUATION: w orn, non-supportive, shoe gear properties exacerbate patient's foot/toe deformity. G eneral Examination: GENERAL APPEARANCE: R roxies a pleasant, alert, well nourished, well-developed, well hydrated individual, who demonstrates proper attention to hygiene/body habitus, and is in no acute distress, Pt serves as own historian for office visit today. ORIENTED: p erson, place, and time. FOOT EXAM: L ower Extremity Neurological Exam performed:?Yes V isual exam of foot performed: Y es D ate 0 06/06/2025 Footwear Evaluation F ootwear Evaluation performed: Y es I ngrown Nail: INSPECTION: R jayde nail incurvation, pain on palpation, groove hypertrophy, Lateral nail border, T5, Lateral nail border, TA. Assessment: * Assessment: 1. T ype 2 diabetes mellitus with diabetic polyneuropathy - E11.42 2 . I ngrown nail - L60.0 (Primary) S pecify :Lateral TA, T5 3. T inea unguium - B35.1 4 . D iabetic peripheral vascular disease - E11.51 Plan: * Treatment: * Procedures: D ebride Nail 6-10: Nail debridement D ue to the clinical pathology outlined in the [...] the use of a nail nipper and/or dremel- type carbide grinder, to a more viable healthy nail [...] to maintain effectiveness in symptomatic relief - 73128. K eratoma Treatment: Parring or Cutting of Benign Hyperkeratotic Lesion(s) ( -56) 2-4 Lesions - Due to the at risk nature of the patients medical condition as documented in the exam findings, performance of this keratoderma treatment is medically necessary as its management by an unskilled/untrained nonprofessional would put this patients foot and overall health at risk. Therefore, the benign hyperkeratotic lesions, ( 3) in total, locations as stated and described in the exam ( M edial plantar, I PJ, T 5, TA, P lantar, T 3), were pared, and/or cut utilizing a sterile 15 blade, tissue nippers, and/or power dremel instrumentation by the physician of record - 54242. N ail Avulsion: Location L ateral nail border, TA, T5. Anesthesia w as deferred - NEUROPATHY: patient has medically documented neuropathic condition affecting sensation. Procedure A fine sterile elevator was placed between the eponychium, nail fold, and nail plate to separate the the structures. A sterile nail splitter, and/or sterile 316 blade, was then used to longitudinally section the nail along its entire length through the eponychium to the area under the nail fold. The offending portion of each nail was from the nail bed with a rolling action and then removed with a hemostat. No underlying bone was identified. There was minimal bleeding as hemostasis was achieved through use of either a digital tournaquet or the aforementioned local with epinephrine. A bacitracin sterile dressing was applied. Local wound aftercare instructions were discussed and dispensed. The patient was informed of both conservative and future surgical procedures to prevent recurrence - 14121/32. * Procedure Codes: 1 1721 DEBRIDE NAIL, 6 OR MORE, Modifiers: XS 43805 Avulsion Plate, Modifiers: XS , [id number] Avulsion Plate Each Additional, Modifiers: XS , [id number] TRIM SKIN LESIONS, 2 TO 4, Modifiers: XS * Preventive Medicine: Screening/Special Tests: F all Risk Screening: N o falls in the past year F ALLS: Screening for Future Fall Risk Have you had two or more falls in the past year? N o * Follow Up: 3 Months * Images: * Sign off status: Completed true * Provider: Marybeth Ervin, DPM Date: 06/06/2025 Generated for Jerrell magallanes/Michelle/Adrienne on: 0 06/11/2025 09:55 AM EDT History and Physical Notes * HPI (History of Present Illness) Category Sub-Category Detail Notes Category Not es At Risk footcare Pt States Last PCP Visit: Date: Examination Category Sub-Category Detail Notes Category Not es Ingrown Nail INSPECTION: Reveals nail inc urvation, pain on palpation, groove hypertrophy, Lateral nail border, T5, Lateral nail border, TA Neurological SENSORY: (Neuro) Neurolog ical exam demonstrates a loss of protective sensation by an absence of tested sensitivity to 5.07 Tony-Katelynn monofilament at 2 or more sites out of 5 total locations, each foot Dermatologic SKIN FINDINGS: Skin exam reveal s Keratotic lesion(s) located at, Medial plantar, IPJ, T5, TA, Plantar, T3 Orthopedic FOOTWEAR EVALUATION: worn, non-s upportive, shoe [...] Visual exam of foot performed:: Yes Date: 06/06/2025 ORIENTED: person, place, and t lupe Footwear Evaluation Footwear Evaluation performe d:: Yes Ophthalmology Referral DIABETES EYE EXAM Procedure Perform ed:: Yes Date of Exam Performed: 05/01/2025 Diabetic Retinopathy Screening:: Yes Findings of Diabetic [...]
[2025-06-11 09:32] VITALS: BP 134/68; PULSE 68; RESP 18; TEMP 36.3; O2SAT 97; BMI 35.6
--- NOTE | 2025-06-11 09:32 | MHC.PC.OV ---
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 Required: No Accompanied by: Self / Same As Patient Allergies atorvastatin (From LIPITOR) Adverse Reaction (Severe, Verified 06/11/25 10:03) transaminitis Medication List - Last Reconciled 06/11/25 by Lara Lobo MD apixaban (Eliquis) 5 mg PO BID azelastine 1 spray intranasal BID 30 days baclofen 10 mg PO TID 30 days blood sugar diagnostic ([employer] Ultra Test strips) Use 1 test strips once a day blood-glucose meter ([employer] UltraMini kit) As directed blood-glucose meter (Blu HomesTouch Ultra2 Meter) As directed coenzyme Q10 (CoQ-10) 100 mg PO DAILY hydrochlorothiazide 25 mg PO QAM lancets ([employer] UltraSoft Lancets) Use 1 lancet once a day lancets (Blu [employer]Touch Delica Plus Lancet) Use 1 lancet once a day lovastatin 80 mg (2 x 40 mg) PO DAILY 90 days metformin 500 mg PO DAILY 90 days wa-vum-kzqdv-Q6-pedszcj-xbmzsf [phone] mcg (Centrum Silver Men) 1 tab PO DAILY ocagvltl-mrki-pwwie-oreg-capry 100 mg-150 mg- 50 mg-150 mg 1 cap PO DAILY Tobacco use date assessed: 06/11/25 Fall risk assessment: No Falls in past year Last assessed Fall Risk: 06/11/25 Dental Screening Dental Screen Date: 06/11/25 Did you have a dental visit in the last 12 months?: No Did you have a dental problem in the last 6 months where you did not have access to dental care?: No Was dental information given to patient?: No HPI HPI Comments History of Present Illness Details The patient is a 69-year-old male presenting for follow-up on diabetes, hyperlipidemia, and evaluation of deep vein thrombosis. The patient has a history of diabetes mellitus, managed with metformin 500 mg daily, and reports a recent weight loss of 4 pounds. Blood glucose levels have been stable, with a recent random blood glucose of 112 mg/dL, and liver enzymes are normal. The patient is also being treated for hyperlipidemia with lovastatin 80 mg, and previous use of Lipitor resulted in elevated liver enzymes. Cholesterol levels have shown some improvement. The patient has a history of deep vein thrombosis and is currently on Eliquis, with a recent ultrasound indicating an occlusive thrombus in the superficial femoral vein and a nonocclusive thrombus in the popliteal vein. The patient is under the care of a vascular surgeon, Dr. Almonte, for further evaluation and management. The patient reports obstructive sleep apnea and uses a CPAP machine, with follow-up care provided by a corporate job titles. The patient experiences right ankle pain, possibly due to arthritis or an old fracture, and an x-ray has been ordered to assess the condition. [facility] Medical History (Updated 06/11/25 @ 10:13 by Lara Lobo MD) Mild major depression Arthritis History of blood transfusion PENG on CPAP Obesity (BMI 30-39.9) Obesity due to excess calories with serious comorbidity Shoulder pain Former smoker Obese Essential hypertension Diabetes mellitus type 2 in obese Mixed hyperlipidemia Surgical History H/O colonoscopy History of skin cancer S/P ureteral reimplantation Family History Father Lung cancer Mother Diabetes Hypertension Stroke Social History Housing: House Alcohol intake: former Patient Tobacco Use Status: Current everyday Tobacco user Tobacco use type: Cigarette and Cigar Cigarettes Per Day: 2 e-Cigarette/Vaping Use: Never Used Second Hand Smoke Exposure: No Advance Directives Date on File: 06/17/20 service: No Current occupational status: unemployed Cognitive needs: No Hearing needs: Yes Vision needs: No Questionnaire Thrive Questionnaire Date Thrive assessed: 01/18/25 I am a: Patient What is your living situation today?: I have a steady place to live Within the past 12 months, did the food you bought not last and you didn't have the money to get more?: Never true Within the past 12 months, did you worry whether your food would run out before you got money to buy more?: Never true Do you have trouble paying for medicines?: No Do you have trouble getting transportation to medical appointments?: No Do you have trouble paying your heating and electricity bill?: No Do you have trouble taking care of your child, family member or friend?: No Do you have trouble with day-to-day activities such as bathing, preparing meals, shopping, managing finances, etc.?: Yes Are you currently unemployed and looking for a job?: No Are you interested in more education?: No Please select the resources that you would like help with: None Currently or been in a relationship where the following occur: No concerns reported THRIVE Score: 0 NYDIA-7 AMB Questionnaire NYDIA-7 Date NYDIA - 7 assessed: 12/07/24 Source: Developed by Drs. Chsa Calderon, Maggie Miranda, Manohar Hollingsworth and colleagues, with an educational douglas from [employer]. Review of Systems Const All systems reviewed & are unremarkable except as noted in HPI and below Card Denies chest pain at rest, Denies chest pain with activity, Denies edema, Denies irregular heart rhythm, Denies claudication, Denies dyspnea, Denies dyspnea on exertion, Denies orthopnea, Denies paroxysmal nocturnal dyspnea and Denies slow heart rate Resp Denies cough, Denies dyspnea and Denies dyspnea on exertion GI Denies abdominal pain, Denies change in bowel habits, Denies excessive flatus, Denies nausea and Denies vomiting Denies urinary hesitancy, Denies urinary incontinence and Denies urinary urgency Musc Denies abnormal gait, Denies atrophy, Denies deformity and Denies limited range of motion Skin/Breast Denies bleeding lesions, Denies changing lesions and Denies rash Neuro Denies abnormal gait and Denies lack of coordination Physical exam (Primary Care) Vital Signs: Last Vital Signs Temp 97.3 F 06/11/25 09:32 Pulse 68 06/11/25 09:32 Resp 18 06/11/25 09:32 BP 134/68 06/11/25 09:32 Pulse Ox 97 06/11/25 09:32 Oxygen Delivery Method Room Air 06/11/25 09:32 BMI result Body Mass Index 35.6 BMI Assessment/Plan discussion: High BMI High, discussed plan: lifestyle, weight reduction, dietary and physical activity Tobacco/Smoking Status: Tobacco use Status Tobacco use date assessed 06/11/25 06/11/25 09:32 Patient Tobacco Use Status Current everyday Tobacco 06/11/25 09:32 Tobacco use type Cigarette,Cigar 06/11/25 09:32 e-Cigarette/Vaping Use Never Used 06/11/25 09:32 Thrive Assessment: Date of Thrive Assessment Date Thrive assessed 01/18/25 06/11/25 09:32 Currently or been in a relationship where the following occur: No concerns reported Const Limitations: ambulation with cane Resp Effort & Inspection: normal respiratory effort Auscultation: clear to auscultation bilaterally Cardio Jugular venous distension: no JVD Rate: regular rate Rhythm: regular rhythm Heart sounds: S1 normal heart sound present and S2 normal heart sound present Extrem General: Yes full ROM Results AMB Hemoglobin A1c AMB Hemoglobin A1c 5.4 % Last Edit by Sultana Roche MA on 06/11/25 10:22 Results Reviewed Results Reviewed: Laboratory Last Values Hgb A1c (Clinic) 5.4 % (4.0-6.0) 06/11/25 10:16 Coding Level of Care Code Est Pt Level 4 (45620) Complex EM visit Add On G2211 Diagnoses 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 I82.512 Affected thrombotic vein of extremity: femoral Chronicity: chronic Mixed hyperlipidemia E78.2 Diabetes mellitus type 2 in obese E11.69; E66.9 Right ankle pain M25.571 PENG on CPAP G47.33; Z99.89 Time Spent (min) 24 Assessment & Plan Assessment & Plan (1) Left leg DVT: Code(s): I82.402 - Acute embolism and thrombosis of unspecified deep veins of left lower extremity Category: Medical Qualifiers: Affected thrombotic vein of extremity: femoral Chronicity: chronic Qualified Code(s): I82.512 - Chronic embolism and thrombosis of left femoral vein (2) Mixed hyperlipidemia: Code(s): E78.2 - Mixed hyperlipidemia Category: Medical (3) Diabetes mellitus type 2 in obese: Code(s): E11.69 - Type 2 diabetes mellitus with other specified complication; E66.9 - Obesity, unspecified Category: Medical (4) Right ankle pain: Code(s): M25.571 - Pain in right ankle and joints of right foot Category: Medical (5) PENG on CPAP: Comment: Known to have obstructive sleep apnea since 2014, after a home sleep study which showed obstructive sleep apnea. Has been compliant and benefiting. He has been using CPAP all these years very regularly. He did get new CPAP which is working fine. Usage is IN ACCEPTABLE RANGE. Code(s): G47.33 - Obstructive sleep apnea (adult) (pediatric); Z99.89 - Dependence on other enabling machines and devices Category: Medical Plan Plan 1. Type 2 diabetes mellitus without complications E11.9 HCC 19 The patient's diabetes is managed with metformin 500 mg daily, and blood glucose levels are stable with a recent random glucose of 112 mg/dL. Follow-up blood work is planned in four months to monitor glucose levels and overall metabolic control. 2. Hyperlipidemia, unspecified E78.5 The patient is on lovastatin 80 mg for hyperlipidemia, with cholesterol levels showing improvement. Liver enzymes are normal, and continued monitoring is advised. 3. Acute embolism and thrombosis of unspecified deep veins of unspecified lower extremity I82.409 HCC 108 The patient is on Eliquis for deep vein thrombosis, with recent ultrasound findings of an occlusive thrombus in the superficial femoral vein and a nonocclusive thrombus in the popliteal vein. Consultation with a vascular surgeon, Dr. Almonte, is ongoing for further management, and surgical intervention is not currently recommended unless the condition worsens. 4. Obstructive sleep apnea (adult) (pediatric) G47.33 The patient uses a CPAP machine for obstructive sleep apnea and follows up with a corporate job titles for ongoing management. 5. Pain in right ankle and joints of right foot M25.571 The patient reports right ankle pain, and an x-ray has been ordered to assess for possible arthritis or an old fracture. Orders: Orders Lipid Panel 4 Months E78.5 - Hyperlipidemia, unspecified Comprehensive [place]. Panel Fast 4 Months I10 - Essential (primary) hypertension AMB Hemoglobin A1c Today E11.69 - Type 2 diabetes mellitus with other specified complication, E66.9 - Obesity, unspecified XR ankle RT 2V Today M25.571 - Pain in right ankle and joints of right foot Microalbumin, Random (w Creat) 4 Months R80.9 - Proteinuria, unspecified
--- OUTSIDE RECORDS SUMMARY | 2025-06-11 09:56 | XMS_ITS | Patient Health Record ---
Author Organization [facility] [place] Address [address] [place] [address] Care Team Providers Care Photoradio Operator Name Role Phone Lynette HERNANDEZ, Lara Primary Care Provider Unavail able Adilene Ervin Unavailable [phone] Allergies No Known Allergies Results Component Value [...] Problem Acquired hammer toe of right foot (6152088113008030 ) Other hammer toe(s) (acquired), right foot (M20.41) Active confirmed Problem Acquired hammer toe of left foot (6323297014808740 ) Other hammer toe(s) (acquired), left foot (M20.42) Active confirmed Problem Polyneuropathy due to type 2 diabetes mellitus (795623861) Type 2 diabetes mellitus with diabetic polyneuropathy (E11.42) Active confirmed Problem Diabetic peripheral vascular disease (812395988) Diabetic peripheral vascular disease (E11.51) Active confirmed Vital Signs Blood pressure diastolic 72 mm Hg 06/06/2025 Height 5ft 9in in 06/06/2025 Blood pressure systolic 120 mm Hg 06/06/2025 Weight 240 lbs 06/06/2025 BMI 35.44 kg/m2 06/06/2025 Encounters Encounter Location Date Provider Diagnosis [facility] [address] [address] 09/01/2024 Adilene Ervin Type 2 diabetes mellitus with diabetic polyneuropathy E11.42 ; Other hammer toe(s) (acquired), right foot M20.41 ; Tinea unguium B35.1 ; Other hammer toe(s) (acquired), left foot M20.42 ; Diabetic peripheral vascular disease E11.51 and Ingrown nail L60.0 [facility] [address] [address] 12/01/2024 Adilene Ervin Other hammer toe(s) (acquired), right foot M20.41 ; Ingrown nail L60.0 ; Type 2 diabetes mellitus with diabetic polyneuropathy E11.42 ; Tinea unguium B35.1 ; Other hammer toe(s) (acquired), left foot M20.42 ; Diabetic peripheral vascular disease E11.51 ; Pain in right toe(s) M79.674 and Pain in left toe(s) M79.675 [address] [address] 03/02/2025 Adilene Perica Ingrown nail L60.0 ; Type 2 diabetes mellitus with diabetic polyneuropathy E11.42 ; Tinea unguium B35.1 ; Diabetic peripheral vascular disease E11.51 ; Pain in left toe(s) M79.675 and Contusion of left great toe with damage to nail, [facility] [address] 06/06/2025 Adilene Perica Ingrown nail L60.0 ; Type 2 diabetes mellitus with diabetic polyneuropathy E11.42 ; Tinea unguium B35.1 and Diabetic peripheral vascular disease E11.[address] [address] 08/15/2024 Adilene Ervin [address] [address] 12/01/2024 Adilene Ervin Assessments Encounter Date Diagnosis [...] Provider Name:Adilene lane, 09/05/2025 10:00:00 AM, [address] [facility], [place], [address], Insurance Providers Payer Name Payer Address Payer Phone Subscriber Number Group Number Insured Name Patient Relationship to Insured Coverage Start Date Coverage End Date BlueCare 65 Medicare Preferred [address] [place] [address] [id number] Peter Gates Self - patient is the insured Medical (General) History Medical History History ICD Code Arthritis Back,Hip,and Knee pain CAD (Cholesterol) covid-19 type II diabetes High Blood Pressure Back pain nerve damage Surgical History Surgery Date(Month/Year) bladder surgery 1967
--- OUTSIDE RECORDS SUMMARY | 2025-06-11 09:56 | XMS_ITS | Clinical Summary ---
Author Organization [facility] [employer] Address [address] [facility] [address] [place] [address] Care Team Providers Care Director Of Community Education Name Role Phone Unavailable Primary Care Provider [...]
== END 2025-06-11 10:19 | disposition home or self-care (01) ==
LOC: HO.HMCH 09:15
PROVIDERS: PCP Internal Medicine; Visit Provider Internal Medicine
DX: I82.512 Chronic embolism and thrombosis of left femoral vein (principal); E11.69 Type 2 diabetes mellitus with other specified complication; E66.9 Obesity, unspecified; Z68.35 Body mass index [BMI] 35.0-35.9, adult; E78.2 Mixed hyperlipidemia; M25.571 Pain in right ankle and joints of right foot; G47.33 Obstructive sleep apnea (adult) (pediatric); Z99.89 Dependence on other enabling machines and devices

== ENCOUNTER → 2025-06-11 10:33 | Outpatient (BNV) | payer MEDICARE, SELFPAY | PROVIDERS: PCP Internal Medicine; Visit Provider Radiology Diagnostic Radiology | DX: M19.071 Primary osteoarthritis, right ankle and foot (principal); I70.201 Unspecified atherosclerosis of native arteries of extremities, right leg | CPT/HCPCS: 73600 ==